=== PATIENT | male | born 1960 | race African-American/Black ===

== ENCOUNTER 2020-08-31 08:56 | Inpatient (IN) | payer OTHER, SELFPAY ==
[2020-08-31] MEDS ORDERED: Iopamidol-370 76% 500 ML 1 ML ONE (09:07)
--- NOTE | 2020-08-31 09:14 | RAD ---
EXAM: Chest one view: HISTORY: Patient found down at work, CPR COMPARISON: 02/13/2016 FINDINGS: Endotracheal tube and NG tube are in place although the distal tip of the NG tube is not included on the study. Heart size: Within normal limits. Lungs: Clear of acute process. No evidence for confluent pneumonia, pleural effusion, acute edema, or pneumothorax, or other signifi cant acute process. IMPRESSION: No significant acute intrathoracic disease.
[2020-08-31 09:16] LABS: #Basophils 0.1 thou/uL (0.0-0.2); #Eosinphils 0.1 thou/uL (0.0-0.7); #Lymphocytes 2.3 thou/uL (1.20-3.40); #Monocytes 0.5 thou/uL (0.11-0.59); %Basophils 1.2 % (0.0-1.0); %Eosinophils 2.3 % (0.0-10.0); %Lymphocytes 38.7 % (21.0-51.0); %Neutrophils 49.9 % (42.0-75.0); Hemoglobin 14.1 g/dL (14.0-18.0); Mean Corpuscular HGB CONC 32.8 g/dL (32.0-36.0); Mean Corpuscular Volume 97.8 fL (78.0-98.0); Mean Platelet Volume 7.4 fL (7.4-10.4); Platelet Count 278 thou/uL (130-400); RBC Distribution Width 11.9 % (11.5-14.5); Red Blood Cell (RBC) Count 4.39 mill/uL (4.70-6.10)
--- NOTE | 2020-08-31 09:28 | CT ---
CT BRAIN NONCONTRAST: DATE: 08/31/2020 9:14 AM HISTORY: 60-year-old male status post syncope and seizure At 9:22 AM 08/31/2020 Dr. Campa reported the findings by telephone to Dr. Ramey. COMPARISON: none FINDINGS: There is a moderate to large amount of subarachnoid hemorrhage in the right sylvian fissure, right fr ontal, temporal, and parietal sulci, interpeduncular cistern, right ambient cistern, right quadrigeminal cistern, prepontine cistern, and suprasellar cistern, right greater than left. No obstructive hydrocephalus, mass effect, midline shift, or acute calvarial fracture. 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
[2020-08-31] MEDS ORDERED: niCARdipine 20MG In NaCl 20 MG/200 ML BAG ONE (09:29)
[2020-08-31 09:39] LABS: PTT 25.3 sec (22.9-36.1); Prothrombin Time 13.3 sec (12.0-14.7)
[2020-08-31 09:41] LABS: Actual Bicarbonate (HCO3a) 26.1 mEq/L (22-28); Analyzer IN Cardio ER; Base Excess (BEa) -0.3 mEq/L (-2.0 to +3.0); CO2 Tension 49.3 mmHg (35.0-45.0); Calcium, Ionized (arterial) 1.18 mmol/L (1.12-1.30); Carboxyhemoglobin (COHb) 3.2 gm% (0.0-3.0); Hemoglobin (Hb) 14.4 g/dL (14.0-18.0); O2 Tension (PaO2), arterial 192.6 mmHg (80.0-100.0); Potassium - ABG Lab 3.36 mmol/L (3.70-5.30); pH, Arterial 7.34 (7.35-7.45)
--- NOTE | 2020-08-31 09:46 | CT ---
CT ANGIOGRAM OF BRAIN WITH AND WITHOUT CONTRAST: DATE: 08/31/2020 9:20 AM HISTORY: 60-year-old male with subarachnoid hemorrhage. Dr. Campa discussed the findings by telephone with Dr. Ant Sabillon at 9:33 AM 08/31/2020. Dr. Campa discussed the findings by telephone with Dr. Ramey at 9:37 AM 08/31/2020. COMPARISON: None TECHNIQUE: Noncontrast brain CT performed. Iodinated IV contrast injected. Bolus chasing technique scan performed through the head. Coronal and sagittal 3-D MIP reconstructions. FINDINGS: At the bifurcation of the right middle cerebral artery, there is a 3 x 1 x 1 mm aneurysm pointing med ially. At the right supraclinoid carotid terminus posterior surface, there is a tiny 1 x 1 x 2 mm aneurysm p ointing medially, posteriorly, and slightly inferiorly. There is no high-grade stenosis or occlusion of major arteries of [place]. IMPRESSION: 1) tiny 3 x 1 x 1 mm aneurysm at right middle cerebral artery bifurcation. This is probably the one t hat has ruptured. 2) tiny 2 x 1 x 1 mm aneurysm at right carotid terminus.
[2020-08-31] MEDS ORDERED: levETIRAcetam In NaCl (Iso-Os) 200 ML ONE (09:48)
[2020-08-31 09:52] LABS: Puncture Site L.R.
[2020-08-31 09:53] LABS: ALV-art Gradient 102.275 mmHg (0-20)
[2020-08-31] MEDS ORDERED: PROPOFOL 20 ML ONE (09:55)
[2020-08-31] MEDS ORDERED: Ondansetron PF 4 MG/2 ML Vial IVP PRN (09:57)
[2020-08-31] MEDS ORDERED: Docusate 100 MG CAP PO PRN (09:57)
[2020-08-31] MEDS ORDERED: Propofol 1,000 MG/100 ML VIAL IV ONE (09:59)
[2020-08-31 10:34] LABS: ALT (SGPT) 12 U/L (8-55); AST (SGOT) 19 U/L (5-34); Acetaminophen Less than 6.0 mcg/mL (10.0-30.0); Albumin 4.1 g/dL (3.5-5.0); Alcohol Less than 10 mg/dL (Less than 10); Alkaline Phosphatase 52 U/L (40-110); Anion Gap 16 mmol/L (10-20); BUN (Urea Nitrogen) 10 mg/dL (8.4-25.7); Bilirubin, Total 0.6 mg/dL (0.2-1.2); CK (CPK) 139 U/L (30-200); Calc. Creatinine Clearance 0 mL/min (70-130); Calcium 8.9 mg/dL (7.8-10.44); Carbon Dioxide 23 mmol/L (22-29); Chloride 103 mmol/L (98-107); Estimated GFR-MDRD 67; Globulin 3.1 g/dL (2.4-3.5); Glucose 190 mg/dL (70-105); Magnesium 1.8 mg/dL (1.6-2.6); Potassium 3.3 mmol/L (3.5-5.1); Protein, Total 7.2 g/dL (6.0-8.3); Salicylate Less than 8.0 mg/dL (15.0-30.0); Sodium 139 mmol/L (136-145)
--- NOTE | 2020-08-31 10:34 | HP ---
HISTORY OF PRESENT ILLNESS: Mr. Berg is a 60-year-old man, presenting to [facility] via EMS transport from work, where he was found to have a syncopal event with reportedly agonal respirations. EMS arrived after coal workers called reporting the patient was unconscious and down. On the scene, the patient had systolic blood pressures in the 200s to two teens. He received rocuronium and ketamine in the field for rapid sequence intubation and then was brought here. Upon presentation to the Emergency Department, CT scan of the brain revealed diffuse subarachnoid hemorrhage with some concentration of the right frontotemporal region likely indicating aneurysmal rupture, perhaps the middle cerebral artery territory. CTA reveals two aneurysms, both relatively small 1 mm in size, one of the right MCA bifurcation. The other at the right ICA terminus. Radiologist's note the ruptured aneurysm is within the right MCA aneurysm. PAST MEDICAL HISTORY: The patient's past medical history includes hypertension. MEDICATIONS: Losartan/hydrochlorothiazide. ALLERGIES: NO KNOWN DRUG ALLERGIES. PAST SURGICAL HISTORY: Surgeries undisclosed. Family at bedside is unsure. The patient does not take any blood thinning medications to their knowledge. PHYSICAL EXAMINATION: GENERAL: Examination at bedside in the ER, again the patient is likely still under the effects of paralytics even to the rapid sequence intubation. HEENT: Pupils, left pupil is roughly 5 mm, right pupil roughly 4 mm, both are briskly reactive. There are no brainstem reflexes upon testing. No spontaneous movement. No reaction to painful stimuli. GCS graded at 3T. ASSESSMENT: Acute subarachnoid hemorrhage. PLAN: At this time, we will admit the patient to the ICU. He will receive high-flow normal saline 125 an hour. Concepcion is in place. We will keep head of bed elevated at 30 degrees, q.1 hour neuro checks. We will consult Pulmonology. Had an extensive discussion with family in the ER regarding likely poor prognosis a little more than the next 6 to 12 hours after repeat scan and continue monitoring. No additional intervention is planned. Job ID: [id number]
[2020-08-31 10:41] LABS: Bacteria/HPF None Seen HPF (None Seen); Bilirubin Negative (Negative); Blood, Urine 2+ (Negative); Clarity Clear (Clear); Glucose, Urine (Dipstick) 100 mg/dL (Negative); Ketone, Urine Negative (Negative); Leukocyte Negative Leu/uL (Negative); Nitrite Negative (Negative); Protein, Urine (Dipstick) 300 mg/dL (Neg-Trace); RBC/HPF 21-50 HPF (0-3); Specific Gravity, Urine 1.022 (1.002-1.036); Squamous Epithelial 0-3 HPF (0-3); Urobilinogen Normal mg/dL (Less than 2)
[2020-08-31 10:43] LABS: Amphetamine Not Detected (NotDetected); Barbiturates Screen Not Detected (NotDetected); Benzodiazepine Screen Not Detected (NotDetected); Cocaine Metabolite Screen Not Detected (NotDetected); Medtox Control Line Valid? VALID (VALID); Medtox Reader # READER 4; Methadone Not Detected (NotDetected); Methamphetamine Not Detected (NotDetected); Opiate Screen Not Detected (NotDetected); Oxycodone Screen Not Detected (NotDetected); Phencyclidine (PCP) Not Detected (NotDetected); THC/Cannabinoid Screen Not Detected (NotDetected); Tricyclic Screen Not Detected (NotDetected)
[2020-08-31] MEDS ORDERED: Fentanyl 100 MCG/2 ML VIAL ONE (10:43)
[2020-08-31 10:49] LABS: Sperm/HPF 1+ HPF (None Seen)
[2020-08-31 11:21] LABS: SARS-CoV-2 NAA Rapid Test Not Detected (NotDetected)
[2020-08-31] MEDS ORDERED: Amiodarone 150 MG/3 ML VIAL ONE (12:21)
[2020-08-31] MEDS: Sodium Chloride 0.9% 1,000 ML IV SCH ×2 (12:36→17:16)
[2020-08-31 12:39] LABS: Lactic Acid 3.1 mmol/L (0.5-2.2)
[2020-08-31 12:46] LABS: Troponin I 0.127 ng/mL (< 0.028)
[2020-08-31] MEDS: niMODipine 30 MG CAP PO SCH ×3 (13:05→21:04)
[2020-08-31] MEDS ORDERED: fentaNYL Citrate/PF 2,000 MCG in Sodium Chloride 0.9% 60 ML IV SCH (13:15)
[2020-08-31] MEDS ORDERED: Propofol BOLUS 1,000 MG/100 ML VIAL IV PRN (13:15)
[2020-08-31] MEDS ORDERED: Fentanyl BOLUS 250 ML IVPB PRN (13:15)
[2020-08-31] MEDS: Propofol 1,000 MG/100 ML VIAL IV PRN ×2 (14:07→17:17)
--- NOTE | 2020-08-31 14:55 | CT ---
CT BRAIN NONCONTRAST: DATE: 08/31/2020 2:21 PM HISTORY: 60-year-old male with subarachnoid hemorrhage. Follow-up. COMPARISON: 08/31/2020 9:14 AM. FINDINGS: Extensive acute subarachnoid hemorrhage is again demonstrated, mostly in the right side. The third ve ntricle is minimally dilated. No midline shift. There has been no major interval change. IMPRESSION: No interval change in the subarachnoid hemorrhage.
[2020-08-31 15:47] LABS: Troponin I 0.149 ng/mL (< 0.028)
[2020-08-31] MEDS ORDERED: Electrolyte Replacement Protoc 1 EACH EACH FS ONE (17:07)
[2020-08-31] MEDS: niCARdipine 25 MG in Sodium Chloride 0.9% 250 ML 240 ML IVPB SCH ×2 (17:17→22:52)
[2020-08-31] MEDS ORDERED: Electrolyte Replacement Protocol FS PRN (17:30)
--- NOTE | 2020-08-31 18:29 | CON ---
DATE OF CONSULTATION: HISTORY OF PRESENT ILLNESS: Mr. Berg is a 60-year-old, gentleman, we are not getting any information from any family members. We tried to contact the number I was called from the ER by the ER physician. The patient was found down at home. He was intubated in the field, brought to the hospital over here, where CT head shows a subarachnoid hemorrhage secondary to an aneurysmal bleed. He is admitted under Neurosurgery, for what I am told at this stage that they are unable to do any surgical intervention. He is vented and sedated. I am told by the nurses that he is on Diprivan. He is moving his right side mainly and appears appropriate. PAST MEDICAL HISTORY: Hypertension. PAST SURGICAL HISTORY: Cardiac cath. CHRONIC MEDICATION: Blood pressure medicine, lisinopril. REVIEW OF SYSTEMS: Otherwise negative. PHYSICAL EXAMINATION: VITAL SIGNS: Pulse 100, blood pressure 108/49, saturations are 100%, respirations 22. CHEST: Decreased breath sounds. No wheezing. CARDIAC: Normal S1 and S2. No gallops. ABDOMEN: No mass. LABORATORY DATA: His lab was unremarkable. ASSESSMENT AND PLAN: 1. Subarachnoid hemorrhage secondary to aneurysmal bleed. 2. History of hypertension. He is on Cardene and nimodipine. 3. Pulmonary is going to follow, probably restart home medicine in the next 24 to 48 hours. 4. We will follow along with Neurosurgery. This is a consultation note 70 minutes, 50% direct patient care. Job ID: [id number]
--- NOTE | 2020-08-31 21:05 | PRG ---
DATE OF SERVICE: 08/31/2020 Mr. Berg is a 60-year-old gentleman who presented to the ER today from work, where he had a syncopal event and agonal respirations. EMS responded and rapid sequence intubated. Mr. Berg was brought to the ER, where he underwent a CT of the head, which revealed the presence of diffuse subarachnoid hemorrhage, eccentric to the right more so than the left. Subsequent to that, he had a CT angiogram performed, which revealed what may be a very small 1 mm aneurysm near the right MCA bifurcation. The plan is admission with subarachnoid hemorrhage protocol. He will undergo conventional angiography tomorrow morning to further evaluate the vasculature. Job ID: [id number]
[2020-08-31] MEDS: Morphine 2 MG/ML VIAL SLOW IVP PRN (22:52)
[2020-08-31] MEDS: Lorazepam 2 MG/ML VIAL SLOW IVP PRN (23:28)
[2020-09-01] MEDS: niMODipine 30 MG CAP PO SCH ×6 (02:00→20:38)
[2020-09-01] MEDS: niCARdipine 25 MG in Sodium Chloride 0.9% 250 ML 240 ML IVPB SCH ×7 (02:01→23:25)
[2020-09-01] MEDS: Propofol 1,000 MG/100 ML VIAL IV PRN ×3 (02:01→23:49)
[2020-09-01 03:35] LABS: #Lymphocytes 2.2 thou/uL (1.20-3.40); #Monocytes 1.6 thou/uL (0.11-0.59); #Neutrophils 11.7 thou/uL (1.40-6.50); %Basophils 0.2 % (0.0-1.0); %Eosinophils 0.3 % (0.0-10.0); %Lymphocytes 13.9 % (21.0-51.0); %Neutrophils 75.6 % (42.0-75.0); Hemoglobin 12.6 g/dL (14.0-18.0); Mean Corpuscular HGB CONC 32.2 g/dL (32.0-36.0); Mean Corpuscular Hemoglobin 31.6 pg (27.0-31.0); Mean Corpuscular Volume 98.2 fL (78.0-98.0); Mean Platelet Volume 7.2 fL (7.4-10.4); Platelet Count 247 thou/uL (130-400); RBC Distribution Width 12.3 % (11.5-14.5); Red Blood Cell (RBC) Count 3.98 mill/uL (4.70-6.10); White Blood Cell (WBC) Count 15.5 thou/uL (4.8-10.8)
[2020-09-01 03:40] LABS: Anion Gap 13 mmol/L (10-20); BUN (Urea Nitrogen) 13 mg/dL (8.4-25.7); Calc. Creatinine Clearance 71 mL/min (70-130); Calcium 8.7 mg/dL (7.8-10.44); Carbon Dioxide 20 mmol/L (22-29); Chloride 109 mmol/L (98-107); Estimated GFR-MDRD 61; Glucose 124 mg/dL (70-105); Potassium 3.8 mmol/L (3.5-5.1); Sodium 138 mmol/L (136-145)
[2020-09-01] MEDS: Sodium Chloride 0.9% 1,000 ML IV SCH ×4 (04:57→18:53)
[2020-09-01] MEDS ORDERED: Magnesium 2 GM/50 ML 2 GM in Premix Bag 1 BAG IVPB SCH (06:30)
[2020-09-01] MEDS ORDERED: Heparin 10,000 UNITS/ 10 ML VIAL ONE (07:07)
[2020-09-01 07:51] LABS: Actual Bicarbonate (HCO3a) 20.1 mEq/L (22-28); Base Excess (BEa) -2.8 mEq/L (-2.0 to +3.0); Carboxyhemoglobin (COHb) 0.4 gm% (0.0-3.0); Hemoglobin (Hb) 12.9 g/dL (14.0-18.0); O2 Tension (PaO2), arterial 110.3 mmHg (80.0-100.0); Potassium - ABG Lab 3.82 mmol/L (3.70-5.30); pH, Arterial 7.45 (7.35-7.45)
[2020-09-01 07:52] LABS: Puncture Site RRA
[2020-09-01] MEDS ORDERED: Lidocaine 1% (PF) 30 ML VIAL ONE (08:01)
--- NOTE | 2020-09-01 08:56 | PRG ---
DATE OF SERVICE: 09/01/2020 Mr. Berg is on the second day of his hospital admission for spontaneous subarachnoid hemorrhage likely aneurysmal in nature. Yesterday, his exam was quite poor, but this morning, when I walk into the room, his eyes are open. He is looking around the room. He follows commands briskly with the right upper extremity somewhat sluggishly with the right lower extremity. Really, he has no significant movement of the left upper nor left lower extremity. He has been breathing on his own to some extent. Overall, I am very encouraged by his exam presentation this morning. Dr. Sabillon plans to take him for angiogram today. Reviewing his lab work, his creatinine bumped from 1.33 up to 1.44. His chemistries otherwise look excellent, which is improving from yesterday. His potassium yesterday was 3.3 and it is currently 3.8 today. Of note, however, his urinary output has continued to decline hour to an hour, where now he is in the 20 to 30 mL out per hour, even though his input normal saline continues to be at 125, my concern is perhaps he is developing some type of dysfunction leading to retention or lack of urine production. We will lower his fluids to 100. Check UA and recheck labs this afternoon. Otherwise, I am quite encouraged again by our interactions today and we will see how he does after angiography. Job ID: [id number]
[2020-09-01] MEDS ORDERED: FLU VACC QS2020-21(6MOS UP)/PF 60 MCG/0.5 ML SYRINGE IM ONE (09:00)
--- NOTE | 2020-09-01 09:09 | PRG ---
DATE OF SERVICE: SUBJECTIVE: This morning, off sedation, is moving only the right side. OBJECTIVE: HEENT: Pupils are equal. VITAL SIGNS: Temperature is normal. Pulse 90, blood pressure 124/60, sats 100%. GENERAL: He has been sedated. He is going for cerebral angiogram. CHEST: No wheezing. No crackles. CARDIAC: Normal S1 and S2. No gallop. ABDOMEN: Soft. LABORATORY DATA: White count 02714, hemoglobin and hematocrit unremarkable. Chemistry profile pertinent for creatinine 1.44. PO2 of 110, pCO2 of 30%, 40% FiO2, rate of 22. IMPRESSION: 1. Respiratory failure secondary to subarachnoid hemorrhage secondary to aneurysm. 2. History of hypertension with renal failure. PLAN: Continue vent support. Wean when stable. Discussed with Neurosurgery additional input. We will follow. One-half hour of critical time. Job ID: [id number]
--- NOTE | 2020-09-01 10:44 | PRG ---
DATE OF SERVICE: SUBJECTIVE: Mr. Berg continues to recover from subarachnoid hemorrhage. He has been a little more responsive over the last 12 hours. He intermittently follows commands on the right side. He does remain intubated and remains in critical condition. He was brought down to the labor relations manager today for cerebral angiography. The angiogram failed to show any known source for subarachnoid hemorrhage. Specifically, there is no evidence for aneurysm or other vascular malformation. At this point in time, my working diagnosis is benign perimesencephalic subarachnoid hemorrhage. He will remain in the ICU as he is intubated. We will continue to be vigilant with respect to hydrocephalus. Currently, there is no known signs of vasospasm on his angiogram, but he remains at risk for it given the degree of blood present. I have updated his family. Job ID: [id number]
[2020-09-01] MEDS ORDERED: Iopamidol 370 76% 100 ML VIAL ONE (13:25)
[2020-09-01] MEDS ORDERED: Iopamidol 370 76% 50 ML VIAL FS ONE (13:25)
[2020-09-01] MEDS ORDERED: PROPOFOL 200 MG/20 ML VIAL ONE (14:28)
[2020-09-01] MEDS: Lorazepam 2 MG/ML VIAL SLOW IVP PRN ×2 (16:18→22:10)
[2020-09-01 16:49] LABS: Anion Gap 12 mmol/L (10-20); BUN (Urea Nitrogen) 12 mg/dL (8.4-25.7); Calc. Creatinine Clearance 107 mL/min (70-130); Calcium 7.7 mg/dL (7.8-10.44); Carbon Dioxide 18 mmol/L (22-29); Chloride 113 mmol/L (98-107); Estimated GFR-MDRD Greater than 90; Glucose 106 mg/dL (70-105); Potassium 3.4 mmol/L (3.5-5.1); Sodium 140 mmol/L (136-145)
[2020-09-01 16:50] LABS: Bacteria/HPF None Seen HPF (None Seen); Bilirubin Negative (Negative); Blood, Urine 1+ (Negative); Clarity Clear (Clear); Glucose, Urine (Dipstick) Normal (Negative); Ketone, Urine Negative (Negative); Leukocyte 75 Leu/uL (Negative); Nitrite Negative (Negative); Protein, Urine (Dipstick) 10 mg/dL (Neg-Trace); Specific Gravity, Urine 1.041 (1.002-1.036); Squamous Epithelial 0-3 HPF (0-3); Urobilinogen Normal mg/dL (Less than 2)
[2020-09-01] MEDS: Morphine 2 MG/ML VIAL SLOW IVP PRN (23:46)
[2020-09-02] MEDS: niMODipine 30 MG CAP PO SCH ×6 (00:57→20:32)
[2020-09-02] MEDS: Lorazepam 2 MG/ML VIAL SLOW IVP PRN ×2 (00:57→21:37)
[2020-09-02] MEDS: niCARdipine 50 MG in Sodium Chloride 0.9% 250 ML 230 ML IVPB SCH ×5 (00:58→19:31)
[2020-09-02] MEDS: Sodium Chloride 0.9% 1,000 ML IV SCH ×3 (04:58→16:41)
[2020-09-02] MEDS: Propofol 1,000 MG/100 ML VIAL IV PRN ×2 (05:34→15:38)
[2020-09-02] MEDS ORDERED: GASTROGRAFIN 30 ML BOT ONE (09:01)
--- NOTE | 2020-09-02 09:01 | PRG ---
DATE OF SERVICE: 09/02/2020 SUBJECTIVE: Rober Berg is a 60-year-old gentleman, remains in the ICU, intubated on the vent. His cerebral angiogram did not show any vasospasm or aneurysm. He is slightly responsive on the right side. He is going to withhold his sedation this morning. OBJECTIVE: VITAL SIGNS: Temperature is 99, blood pressure 140/71, pulse 96, respiratory rate 18. CHEST: Bilateral rhonchi. CARDIAC: Normal S1, S2. No gallops. ABDOMEN: No masses. LABORATORY DATA: Sodium is 140. Last white count was 15,000. ASSESSMENT: 1. Subarachnoid hemorrhage. No evidence of aneurysm. 2. History of hypertension. PLAN: Lab, x-ray have been ordered. We will start nutrition, PT. Hopefully, we can try and wean and extubate him in the next several days. One-half hour of critical care time. Job ID: [id number]
--- NOTE | 2020-09-02 10:08 | PRG ---
DATE OF SERVICE: 09/02/2020 Mr. Berg is now hospital day #2 and one day status post cerebral angiography for subarachnoid hemorrhage. He remains in the ICU and remains intubated. Sedation holidays reveal intermittent purposeful movements and occasional following of commands on the right side. I saw Dr. Meyers this morning, who plans to withhold his sedation and work toward extubation if possible. In the meanwhile, we will continue to treat him for a nonaneurysmal subarachnoid hemorrhage. He remains in a critical condition. At this time, my concern for vasospasm and hydrocephalus are low based on his most recent set of images. I will continue to update the family. Job ID: [id number]
[2020-09-02] MEDS ORDERED: Potassium Chloride 20 MEQ TAB PO SCH (10:45)
[2020-09-02] MEDS: Lisinopril 10 MG TAB PO SCH (11:09)
[2020-09-02] MEDS: Amlodipine 5 MG TAB PO SCH (11:09)
[2020-09-02] MEDS: Scopolamine 1.5 mg/72 hour Patch TOP SCH (11:25)
[2020-09-02] MEDS ORDERED: Sodium Chloride 0.9% (PF) 10 ML VIAL FS PRN (11:30)
[2020-09-02] MEDS ORDERED: Sodium Chloride 0.9% 1,000 ML IV SCH (18:15)
--- NOTE | 2020-09-02 19:53 | RAD ---
Cam: 1 view abdomen HISTORY: Abdominal distention COMPARISON: None FINDINGS: Multiple distended loops of small bowel and colon. No evidence of pneumoperitoneum on supin e projection. Nasogastric tube terminates at the GE junction. Advancement of the nasogastric tube is recommended. N o suspicious densities in the abdomen or pelvis IMPRESSION: Distended air-filled loops of bowel. Nasogastric tube should be advanced. Results study d iscussed with patient's nurse, [place] 09/02/2020 7:47 PM Code CR
--- NOTE | 2020-09-02 20:29 | RAD ---
Exam: 1 view abdomen HISTORY: Confirm NG tube placement FINDINGS: Gastrografin is administered and appears to opacify the gastric mucosa. Persistent dilated loops of small bowel are noted. IMPRESSION: Opacification of the stomach with Gastrografin. Transcribed Date/Time: 09/02/2020 8:37 PM
--- NOTE | 2020-09-02 20:30 | RAD ---
Exam: 1 view abdomen Comparison 09/02/2020 at 7:34 PM HISTORY: Advancement of OG tube FINDINGS: OG tube now appears to be in the epigastric region. Sidehole is beyond the diaphragm. Orien tation is somewhat vertical. OG tube is presumed to be in the stomach. Small amount of Gastrografin can be measured confirm position IMPRESSION: As above Transcribed Date/Time: 09/02/2020 8:41 PM
[2020-09-02] MEDS: Pantoprazole 40 MG VIAL IVP SCH (20:32)
[2020-09-03] MEDS: niCARdipine 50 MG in Sodium Chloride 0.9% 250 ML 230 ML IVPB SCH (00:16)
[2020-09-03] MEDS: niMODipine 30 MG CAP PO SCH ×6 (00:16→20:13)
[2020-09-03] MEDS: Propofol 1,000 MG/100 ML VIAL IV PRN ×3 (00:16→18:27)
[2020-09-03 07:21] LABS: Actual Bicarbonate (HCO3a) 20.3 mEq/L (22-28); CO2 Tension 30.8 mmHg (35.0-45.0); Calcium, Ionized (arterial) 1.25 mmol/L (1.12-1.30); Carboxyhemoglobin (COHb) 0.1 gm% (0.0-3.0); Hemoglobin (Hb) 11.8 g/dL (14.0-18.0); O2 Tension (PaO2), arterial 83.1 mmHg (80.0-100.0); Potassium - ABG Lab 3.87 mmol/L (3.70-5.30); pH, Arterial 7.44 (7.35-7.45)
[2020-09-03 07:23] LABS: Puncture Site RRA
--- NOTE | 2020-09-03 07:59 | RAD ---
CHEST 1 VIEW: INDICATION: Intubation. COMPARISON: Prior exam dated 08/31/2020. FINDINGS: ET tube and gastric catheter are present. Tubes project in the expected position. There is new hazy opacity involving the mid to lower right lung which may be related to a small layered pleural effusi on. Heart size is normal. Pulmonary vasculature is within normal limits. No pneumothorax is eviden t. IMPRESSION: 1. Hazy opacity involving the mid to right lower lobe may reflect mild layered pleural effusion. No airam consolidation or pneumothorax evident. 2. Tubes and lines are stable. 3. Continued followup is recommended. POS: BH
[2020-09-03] MEDS: Amlodipine 5 MG TAB PO SCH (08:07)
[2020-09-03] MEDS: Lisinopril 10 MG TAB PO SCH (08:07)
[2020-09-03 08:40] LABS: #Eosinphils 0.1 thou/uL (0.0-0.7); #Lymphocytes 1.6 thou/uL (1.20-3.40); #Monocytes 1.6 thou/uL (0.11-0.59); #Neutrophils 11.5 thou/uL (1.40-6.50); %Basophils 0.3 % (0.0-1.0); %Eosinophils 0.6 % (0.0-10.0); %Lymphocytes 10.5 % (21.0-51.0); %Monocytes 10.8 % (0.0-10.0); %Neutrophils 77.8 % (42.0-75.0); Hemoglobin 11.5 g/dL (14.0-18.0); Mean Corpuscular HGB CONC 32.6 g/dL (32.0-36.0); Mean Corpuscular Hemoglobin 32.8 pg (27.0-31.0); Mean Platelet Volume 8.4 fL (7.4-10.4); Platelet Count 185 thou/uL (130-400); RBC Distribution Width 12.5 % (11.5-14.5); Red Blood Cell (RBC) Count 3.49 mill/uL (4.70-6.10); White Blood Cell (WBC) Count 14.8 thou/uL (4.8-10.8)
[2020-09-03 08:57] LABS: Anion Gap 15 mmol/L (10-20); BUN (Urea Nitrogen) 27 mg/dL (8.4-25.7); Calc. Creatinine Clearance 84 mL/min (70-130); Calcium 8.7 mg/dL (7.8-10.44); Carbon Dioxide 17 mmol/L (22-29); Chloride 112 mmol/L (98-107); Estimated GFR-MDRD 69; Glucose 118 mg/dL (70-105); Potassium 4.1 mmol/L (3.5-5.1); Sodium 140 mmol/L (136-145)
--- NOTE | 2020-09-03 09:08 | PRG ---
DATE OF SERVICE: 09/03/2020 SUBJECTIVE: Rober Berg this morning was intubated in the vent, lightly sedated with Diprivan. OBJECTIVE: VITAL SIGNS: Temperature is 99.2, his pulse 104, blood pressure 140/71, respiratory rate 18. CHEST: No wheezing. No crackles. CARDIAC: Normal S1 and S2. No gallops. ABDOMEN: Soft. He appears to be slightly jaundiced. LABORATORY DATA: His pO2 is 83, pCO2 of 30% for a rate of 10, 40%. X-ray is clear. KUB is otherwise unremarkable. ASSESSMENT: 1. Subarachnoid hemorrhage, not secondary to an aneurysm. 2. Hypertension. 3. Jaundice. 4. Respiratory failure. PLAN: Slow weaning. Continue nutrition, PT. Blood pressure medication as outlined. We will follow. One-half hour of critical care time. Job ID: [id number]
[2020-09-03 11:02] LABS: ALT (SGPT) 7 U/L (8-55); AST (SGOT) 14 U/L (5-34); Albumin 3.4 g/dL (3.5-5.0); Alkaline Phosphatase 44 U/L (40-110); Bilirubin, Direct 0.4 mg/dL (0.1-0.3); Bilirubin, Total 0.9 mg/dL (0.2-1.2); Protein, Total 6.4 g/dL (6.0-8.3)
--- NOTE | 2020-09-03 11:09 | PRG ---
DATE OF SERVICE: 09/03/2020 Mr. Berg remains in the ICU recovering from subarachnoid hemorrhage. He also remains intubated. Off sedation, he opens his eyes. He does follow commands on the right, but is densely hemiparetic on the left. Our Pulmonary Care colleagues are working to wean toward extubation. We will continue to update the family. Our role at this point is one of supportive care. We will repeat a CT angiogram on Monday to further rule out source for hemorrhage. At this time, I have a minimal to no concerns for hydrocephalus given his stable if not improving neurologic exam. Job ID: [id number]
--- NOTE | 2020-09-03 11:29 | PDOC.FMACP ---
Advance Care Planning - Problem (1) Subarachnoid hemorrhage Status: Acute Code(s): I60.9 - NONTRAUMATIC SUBARACHNOID HEMORRHAGE, UNSPECIFIED (2) Palliative care encounter Status: Acute Code(s): Z51.5 - ENCOUNTER FOR PALLIATIVE CARE (3) Respiratory failure requiring intubation Status: Acute Code(s): J96.90 - RESPIRATORY FAILURE, UNSP, UNSP W HYPOXIA OR HYPERCAPNIA (4) Hypertension Status: Chronic Code(s): I10 - ESSENTIAL (PRIMARY) HYPERTENSION - Note Participants: family, surrogate decision-maker, palliative care Summary: Palliative care introduced Advanced Care Planning. The diagnosis, prognosis and goals of care were discussed. Appropriate forms and documentation to accomplish the goals of care were discussed. All questions were answered. Family has elected to name one of the 5 siblings as MPOA and have added a password to gain information in addition to the pin code. Patients children are hopeful for continued recovery and improvement. Surrogate decision maker is Ernestine. Please refer to Palliative Care notes in note section for specifics. The Palliative Care Team will assist with completion of any outstanding forms as identified. Ernestine Dumont [phone] Surrogate decision maker as designated by her siblings. Password for information is LORD in addition to pin code. Palliative Care will sign off as MPOA identified, if in the future patient is decisional and wishes to complete MPOA and Directive to Physician please re consult our team or if we can assist with Goal of care, complex decision making, family support. Time Spent (mins): 15
--- NOTE | 2020-09-03 12:28 | PRG ---
DATE OF SERVICE: 09/03/2020 Mr. Berg is on the 3rd day of hospital stay following non-aneurysmal subarachnoid hemorrhage. He continues to intermittently follow commands on the right with minimal movement if any on the left. Pupils still are equal and reactive to light. He is still on the ventilator, though Pulmonology is attempting to wean as tolerated. He is mostly overbreathing on his own today. Potassium 4.1, sodium 140. We will continue to need to monitor this and hopefully work to get him off the ventilator as soon as we can as tolerated. We will continue to follow. Job ID: [id number]
[2020-09-03] MEDS: cloNIDine 0.1 MG TAB PO PRN ×2 (13:28→21:07)
--- NOTE | 2020-09-03 13:42 | CON ---
DATE OF CONSULTATION: REASON FOR CONSULTATION: Medical management. HISTORY OF PRESENT ILLNESS: The patient is a 60-year-old male with past medical history of hypertension, who was brought to the hospital after being found unresponsive and intubated in the field. CT scan of the brain in the ER revealed presence of subarachnoid hemorrhage secondary to aneurysmal rupture. The patient underwent conventional angiogram by Neurosurgery, which fails to show any source of active bleeding. At this time, the patient remains on mechanical ventilation. Once sedation is reduced, the patient is able to move his right side, but not the left. He is currently on nicardipine drip to control his blood pressure. REVIEW OF SYSTEMS: Cannot be obtained at this time. PAST MEDICAL HISTORY: Hypertension. PAST SURGICAL HISTORY: Cardiac catheterization showing normal coronary arteries in 2016. SOCIAL HISTORY: Unable to obtain. PHYSICAL EXAMINATION: GENERAL: The patient is currently intubated. He is off sedation and appears to be agitated with a lot of tracheal secretions. HEENT: Head is normocephalic and atraumatic. Extraocular muscles are intact. CHEST: Auscultation revealed normal S1 and S2 with regular rate and rhythm and clear breath sounds. ABDOMEN: Soft, nontender, nondistended. NEUROLOGICAL: Cannot be accurately assessed at this time since the patient is intubated. LABORATORY DATA: Laboratory studies showing evidence of leukocytosis on CBC and slightly elevated creatinine level on BMP. ASSESSMENT: 1. Subarachnoid hemorrhage. 2. Acute respiratory failure with hypoxia. 3. Hypertensive emergency. PLAN: 1. The patient is currently managed in the ICU. 2. Critical Care team assisting with ventilator management. 3. His blood pressure is controlled on nicardipine drip in addition to oral antihypertensive medications of nimodipine, which is used to reduce cerebral vasospasm, his home lisinopril, and clonidine p.r.n. Started systolic blood pressure less than 160. 4. Scopolamine patch ordered for extensive secretions. 5. The patient can be weaned off mechanical ventilation as tolerated and directed by Critical Care team. 6. We will continue to follow up. We will continue to follow the patient for any medical needs. Job ID: [id number]
[2020-09-03] MEDS: Labetalol HCl 100 MG/20 ML VIAL SLOW IVP PRN (15:26)
[2020-09-03] MEDS: Acetaminophen 325 MG TAB PO PRN (16:49)
[2020-09-03] MEDS: Budesonide 0.5 MG/2 ML NEB NEB SCH (19:05)
[2020-09-03] MEDS: Pantoprazole 40 MG VIAL IVP SCH (20:14)
[2020-09-03] MEDS: Lorazepam 2 MG/ML VIAL SLOW IVP PRN (20:33)
[2020-09-04] MEDS: niMODipine 30 MG CAP PO SCH ×6 (01:12→20:51)
[2020-09-04] MEDS: Propofol 1,000 MG/100 ML VIAL IV PRN ×2 (04:08→18:26)
[2020-09-04 04:33] LABS: Anion Gap 12 mmol/L (10-20); BUN (Urea Nitrogen) 30 mg/dL (8.4-25.7); Calc. Creatinine Clearance 91 mL/min (70-130); Calcium 8.9 mg/dL (7.8-10.44); Carbon Dioxide 19 mmol/L (22-29); Chloride 112 mmol/L (98-107); Estimated GFR-MDRD 75; Glucose 104 mg/dL (70-105); Potassium 4.4 mmol/L (3.5-5.1); Sodium 139 mmol/L (136-145)
[2020-09-04 04:47] LABS: #Eosinphils 0.1 thou/uL (0.0-0.7); #Lymphocytes 1.6 thou/uL (1.20-3.40); #Monocytes 1.5 thou/uL (0.11-0.59); #Neutrophils 8.5 thou/uL (1.40-6.50); %Basophils 0.4 % (0.0-1.0); %Eosinophils 1.2 % (0.0-10.0); %Lymphocytes 13.5 % (21.0-51.0); %Monocytes 12.4 % (0.0-10.0); %Neutrophils 72.6 % (42.0-75.0); Hemoglobin 11.4 g/dL (14.0-18.0); Mean Corpuscular HGB CONC 33.4 g/dL (32.0-36.0); Mean Platelet Volume 8.3 fL (7.4-10.4); Platelet Count 202 thou/uL (130-400); RBC Distribution Width 12.3 % (11.5-14.5); Red Blood Cell (RBC) Count 3.46 mill/uL (4.70-6.10); White Blood Cell (WBC) Count 11.8 thou/uL (4.8-10.8)
--- NOTE | 2020-09-04 07:44 | PRG ---
DATE OF SERVICE: 09/04/2020 Mr. Berg is now hospital day 4 for subarachnoid hemorrhage. He had conventional angiography performed, which did not reveal evidence for aneurysm. His neurologic exam has remained relatively stable. Off sedation, he becomes restless, but intermittently follows command on the right side. He does remain intubated and has been difficult to wean secondarily to secretions in part. I will update the family today. Our Pulmonary and Critical Care colleagues will continue vent management and ultimately will need to decide whether he needs to have a trach placed. Also, repeat CT scan as well as CT angiography this next Monday when he is roughly 1 week out from his hemorrhage. Job ID: [id number]
[2020-09-04] MEDS: Lisinopril 10 MG TAB PO SCH (08:14)
[2020-09-04] MEDS: Amlodipine 5 MG TAB PO SCH ×3 (08:14→20:50)
[2020-09-04] MEDS: cloNIDine 0.1 MG TAB PO PRN ×3 (08:14→23:42)
[2020-09-04 08:47] LABS: Actual Bicarbonate (HCO3a) 21.9 mEq/L (22-28); Base Excess (BEa) -1.9 mEq/L (-2.0 to +3.0); CO2 Tension 33.9 mmHg (35.0-45.0); Calcium, Ionized (arterial) 1.22 mmol/L (1.12-1.30); Carboxyhemoglobin (COHb) 0.3 gm% (0.0-3.0); Hemoglobin (Hb) 11.7 g/dL (14.0-18.0); O2 Tension (PaO2), arterial 76.3 mmHg (80.0-100.0); Potassium - ABG Lab 4.44 mmol/L (3.70-5.30); pH, Arterial 7.43 (7.35-7.45)
[2020-09-04 09:00] LABS: ALV-art Gradient 166.525 mmHg (0-20); Puncture Site RRAD
[2020-09-04] MEDS: Budesonide 0.5 MG/2 ML NEB NEB SCH ×2 (09:01→19:14)
--- NOTE | 2020-09-04 09:22 | PRG ---
DATE OF SERVICE: 09/04/2020 SUBJECTIVE: Rober Berg remains in the ICU. He is coughing still a lot. OBJECTIVE: VITAL SIGNS: Pulse 84, blood pressure 160/78 CHEST: Anterior rhonchi. CARDIAC: Normal S1, S2. No gallops. ABDOMEN: No masses. LABORATORY AND DIAGNOSTIC DATA: Unremarkable. His liver function was normal, particularly his bilirubin. His chest x-ray shows otherwise no acute infiltrates. IMPRESSION AND PLAN: Respiratory failure, subarachnoid hemorrhage, hypertension, mild renal failure. It is possible that Zestril could be causing the cough. This may be discontinued cough. Continue neb treatments, supportive care, nutrition, PT. Wean as tolerated. TIME SPENT: One-half hour of critical care time. Job ID: [id number]
--- NOTE | 2020-09-04 09:42 | RAD ---
PORTABLE CHEST: COMPARISON: Prior day's exam. HISTORY: Respiratory distress. Endotracheal and NG tubes are in satisfactory position. The parenchymal lung changes show some impro vement to the hazy opacity over the right lung base. No other significant interval change. IMPRESSION: Slight improvement to some of the right lower lobe parenchymal lung change. POS: JORGE
[2020-09-04] MEDS: cloNIDine 0.2 MG TAB PO SCH ×2 (09:58→20:50)
[2020-09-04] MEDS ORDERED: Dexamethasone 4 MG in Sodium Chloride 0.9% 50 ML IVPB SCH (12:00)
--- NOTE | 2020-09-04 12:26 | PDOC.HOSPP ---
- Subjective Encounter Date: 09/04/20 Encounter Time: 08:35 Subjective: awakens on vent and sedated mildly seen moving right extremities has increased resp secretions - Objective Vital Signs & Weight: Vital Signs (12 hours) Temp Pulse Resp BP Pulse Ox 09/04/20 10:00 18 09/04/20 09:58 85 143/66 H 09/04/20 09:01 85 16 96 09/04/20 08:14 84 168/78 H 09/04/20 08:00 99.7 F H 26 H 96 09/04/20 05:53 19 09/04/20 04:00 99.4 F 22 H 09/04/20 02:00 19 Weight Admit Weight 199 lb Weight 213 lb 6.519 oz Most Recent Monitor Data Heart Rate from ECG 77 NIBP 134/67 NIBP BP-Mean 89 Respiration from ECG 14 SpO2 98 I&O: 09/03/20 09/04/20 09/05/20 06:59 06:59 06:59 Intake Total 2749.8 1269 100 Output Total 765 1132 420 Balance 1984.8 137 -320 Result Diagrams: 09/04/20 03:38 09/04/20 03:38 Additional Labs: Accuchecks 09/04/20 09/03/20 09/03/20 11:30 20:32 18:26 POC Glucose 110 H 90 106 H Hospitalist ROS - Medication Medications: Active Medications Generic Name Dose Route Start Last Admin Trade Name Freq PRN Reason Stop Dose Admin Acetaminophen 650 mg 09/03/20 15:36 09/03/20 16:49 Acetaminophen 325 Mg Tab PO 650 mg Q6H PRN Administration Fever > 101 Albuterol/Ipratropium 3 ml 09/03/20 18:30 09/04/20 09:01 Ipratropium/Albuterol Sulfate 3 Ml Neb NEB 3 ml BID-RT ALEXANDR Administration Amlodipine Besylate 5 mg 09/04/20 09:00 09/04/20 09:58 Amlodipine 5 Mg Tab PO 5 mg BID ALEXANDR Administration Budesonide 0.5 mg 09/03/20 18:30 09/04/20 09:01 Budesonide 0.5 Mg/2 Ml Neb NEB 0.5 mg BID-RT ALEXANDR Administration Clonidine 0.1 mg 09/02/20 15:39 09/04/20 08:14 Clonidine 0.1 Mg Tab PO 0.1 mg Q4H PRN Administration SBP Greater Than 150 Clonidine 0.2 mg 09/04/20 09:00 09/04/20 09:58 Clonidine 0.2 Mg Tab PO 0.2 mg BID ALEXANDR Administration Nicardipine HCl 50 mg/ Sodium 250 mls @ 0 mls/hr 09/02/20 00:15 09/03/20 00:16 Chloride IVPB 250 mls INF ALEXANDR Administration Protocol Titrate Labetalol HCl 20 mg 09/02/20 15:38 09/03/20 15:26 Labetalol Hcl 100 Mg/20 Ml Vial SLOW IVP 20 mg Q4H PRN Administration SBP>150 Lorazepam 2 mg 08/31/20 13:15 09/03/20 20:33 Lorazepam 2 Mg/Ml Vial SLOW IVP 09/30/20 13:15 2 mg Q1H PRN Administration Breakthrough agitation Morphine Sulfate 2 mg 08/31/20 13:15 09/01/20 23:46 Morphine 2 Mg/Ml Vial SLOW IVP 09/30/20 13:15 2 mg Q1H PRN Administration Breakthrough Pain/Agitation Nimodipine 60 mg 08/31/20 13:00 09/04/20 08:14 Nimodipine 30 Mg Cap PO 60 mg Q4HR ALEXANDR Administration Pantoprazole Sodium 40 mg 09/02/20 21:00 09/03/20 20:14 Pantoprazole 40 Mg Vial IVP 40 mg 2100 ALEXANDR Administration Propofol 1,000 mg 08/31/20 13:15 09/04/20 04:08 Propofol 1,000 Mg/100 Ml Vial IV 09/30/20 13:15 1,000 mg INF PRN Administration TO ACHIEVE GOAL RASS Protocol Scopolamine 1.5 mg 09/02/20 11:15 09/02/20 11:25 Scopolamine 1.5 Mg/72 Hour Patch TOP 1.5 mg Q3D ALEXANDR Administration - Exam General Appearance: ill appearing Eye: anicteric sclera ENT: no oropharyngeal lesions, moist mucosa Neck: supple, no JVD Heart: RRR, no murmur Respiratory: no wheezes, no rales, rhonchi Gastrointestinal: soft, non-tender, non-distended, normal bowel sounds Extremities: no cyanosis, no edema Neurological: hemiplegia Hosp A/P (1) Subarachnoid hemorrhage Code(s): I60.9 - NONTRAUMATIC SUBARACHNOID HEMORRHAGE, UNSPECIFIED Status: Acute (2) Acute respiratory failure with hypoxia Code(s): J96.01 - ACUTE RESPIRATORY FAILURE WITH HYPOXIA Status: Acute (3) Acute CVA (cerebrovascular accident) Code(s): I63.9 - CEREBRAL INFARCTION, UNSPECIFIED Status: Acute (4) CRYS (acute kidney injury) Code(s): N17.9 - ACUTE KIDNEY FAILURE, UNSPECIFIED Status: Acute (5) Metabolic acidosis Code(s): E87.2 - ACIDOSIS Status: Acute (6) Hypertension Code(s): I10 - ESSENTIAL (PRIMARY) HYPERTENSION Status: Chronic Qualifiers: Hypertension type: essential hypertension Qualified Code(s): I10 - Essential (primary) hypertension - Plan is on nimodipine6 60mg q4h, norvasc 5mg bid, clonidine 0.1mg bid, protonix, nebs has left hemiplegia weaning per pulm advice will obtain echo for lv function hemo/neurostable CTA and kati angio of brain did not reveal aneurysm or rupture
[2020-09-04] MEDS: Dexamethasone 4 mg/ml Vial SLOW IVP SCH ×3 (13:12→23:42)
[2020-09-04] MEDS: Acetaminophen 325 MG TAB PO PRN (13:34)
[2020-09-04] MEDS: Pantoprazole 40 MG VIAL IVP SCH (20:51)
[2020-09-04] MEDS: Labetalol HCl 100 MG/20 ML VIAL SLOW IVP PRN (21:41)
[2020-09-05] MEDS: Propofol 1,000 MG/100 ML VIAL IV PRN (00:36)
[2020-09-05] MEDS: niMODipine 30 MG CAP PO SCH ×6 (01:03→20:15)
[2020-09-05] MEDS: cloNIDine 0.1 MG TAB PO PRN (03:42)
[2020-09-05 03:55] LABS: Anion Gap 15 mmol/L (10-20); BUN (Urea Nitrogen) 29 mg/dL (8.4-25.7); Calc. Creatinine Clearance 111 mL/min (70-130); Carbon Dioxide 20 mmol/L (22-29); Chloride 108 mmol/L (98-107); Estimated GFR-MDRD Greater than 90; Glucose 149 mg/dL (70-105); Potassium 5.2 mmol/L (3.5-5.1); Sodium 138 mmol/L (136-145)
[2020-09-05 04:02] LABS: Band 9 % (5-11); Lymphocytes 8 % (21-51); MDiff Complete? YES; Mean Corpuscular HGB CONC 34.4 g/dL (32.0-36.0); Mean Corpuscular Hemoglobin 34.2 pg (27.0-31.0); Mean Corpuscular Volume 99.3 fL (78.0-98.0); Mean Platelet Volume 7.9 fL (7.4-10.4); Monocytes 7 % (0-10); Neutrophil 76 % (42-75); Platelet Count 205 thou/uL (130-400); RBC Distribution Width 12.2 % (11.5-14.5); Red Blood Cell (RBC) Count 3.22 mill/uL (4.70-6.10); White Blood Cell (WBC) Count 15.6 thou/uL (4.8-10.8)
[2020-09-05] MEDS: Dexamethasone 4 mg/ml Vial SLOW IVP SCH ×4 (05:11→23:14)
[2020-09-05] MEDS: Budesonide 0.5 MG/2 ML NEB NEB SCH ×2 (07:26→18:31)
[2020-09-05 07:46] LABS: Actual Bicarbonate (HCO3a) 22.7 mEq/L (22-28); Base Excess (BEa) -1.5 mEq/L (-2.0 to +3.0); CO2 Tension 36.3 mmHg (35.0-45.0); Calcium, Ionized (arterial) 1.26 mmol/L (1.12-1.30); Carboxyhemoglobin (COHb) 0.4 gm% (0.0-3.0); pH, Arterial 7.41 (7.35-7.45)
[2020-09-05 07:48] LABS: Puncture Site RRA
[2020-09-05 07:49] LABS: ALV-art Gradient 97.825 mmHg (0-20)
[2020-09-05] MEDS: Acetaminophen 325 MG TAB PO PRN (08:12)
[2020-09-05] MEDS: Amlodipine 5 MG TAB PO SCH ×2 (08:12→20:15)
[2020-09-05] MEDS: cloNIDine 0.2 MG TAB PO SCH (08:12)
[2020-09-05] MEDS ORDERED: DC Sedation Protocol FS ONE (09:16)
--- NOTE | 2020-09-05 10:56 | RAD ---
Chest one view HISTORY: Dyspnea. Follow-up. COMPARISON: 09/04/2020. FINDINGS: Cardiac silhouette is magnified by projection. Pulmonary vasculature is unremarkable. Mediastinum is midline. Lines and tubes appear unchanged in position. No lobar consolidation or evidence of pneumothorax. IMPRESSION : Stable radiographic appearance of the chest.
[2020-09-05] MEDS ORDERED: DOPamine 400 MG/D5W 250 ML 250 ML IVPB PRN (11:19)
[2020-09-05] MEDS: Scopolamine 1.5 mg/72 hour Patch TOP SCH (11:47)
--- NOTE | 2020-09-05 11:58 | CCLSPC ---
DOOR TO DOOR SALESMAN: None. INDICATION: Subarachnoid hemorrhage. DIAGNOSIS: Subarachnoid hemorrhage. PROCEDURE: Digital subtraction angiography. ANESTHESIA: Local and general. TECHNIQUE: The patient was brought into the angiogram suite and placed under general anesthesia. He was placed on table in a supine position. Both groins were prepped and draped in the usual sterile fashion. Following appropriate pause, a 5[place] micropuncture set was used to gain access to the right common femoral artery. Using a Seldinger technique, a 5-[place] sheath was placed. A 5 [place] diagnostic catheter passed over a [employer] guidewire was advanced into the right internal carotid artery where several AP and lateral angiograms were performed within various planes and using several oblique views. 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 Angiography did not reveal an aneurysm, but what was a small vessel loop emanating at the location of the bifurcation. There is also a PCOM infundibulum with a diminutive posterior communicating artery emanating from that infundibulum. In short, there is no obvious aneurysm present. There is no significant vasospasm present. There is some irregularity of the intracranial portion of the internal carotid artery, suggestive of atherosclerotic disease. IMPRESSION: The patient underwent successful angiography. There is no evidence for aneurysm. Job ID: [id number]
[2020-09-05] MEDS: hydrALAZINE 25 MG TAB PO SCH ×3 (12:13→20:16)
--- NOTE | 2020-09-05 13:04 | PDOC.HOSPP ---
- Subjective Encounter Date: 09/05/20 Encounter Time: 08:30 Subjective: awake, follows verbal stimuli moves a bit of left UE, not seen him move left lower daughter at bedside has og tube for medications - Objective Vital Signs & Weight: Vital Signs (12 hours) Temp Pulse Resp BP Pulse Ox 09/05/20 12:13 63 146/79 H 09/05/20 12:00 99.1 F 09/05/20 08:12 77 147/74 H 09/05/20 08:00 99.7 F H 18 97 09/05/20 07:26 77 09/05/20 06:00 16 09/05/20 04:00 100.2 F H 15 09/05/20 03:42 169/77 H 09/05/20 02:00 16 Weight Admit Weight 199 lb Weight 211 lb 13.828 oz Most Recent Monitor Data Heart Rate from ECG 69 NIBP 151/79 NIBP BP-Mean 103 Respiration from ECG 14 SpO2 97 I&O: 09/04/20 09/05/20 09/06/20 06:59 06:59 06:59 Intake Total 1269 1955 200 Output Total 1132 2520 335 Balance 137 -565 -135 Result Diagrams: 09/05/20 03:22 09/05/20 03:22 Additional Labs: Accuchecks 09/05/20 09/04/20 03:57 21:50 POC Glucose 146 H 133 H Hospitalist ROS - Medication Medications: Active Medications Generic Name Dose Route Start Last Admin Trade Name Freq PRN Reason Stop Dose Admin Acetaminophen 650 mg 09/03/20 15:36 09/05/20 08:12 Acetaminophen 325 Mg Tab PO 650 mg Q6H PRN Administration Fever > 101 Albuterol/Ipratropium 3 ml 09/03/20 18:30 09/05/20 07:25 Ipratropium/Albuterol Sulfate 3 Ml Neb NEB 3 ml BID-RT ALEXANDR Administration Amlodipine Besylate 5 mg 09/04/20 09:00 09/05/20 08:12 Amlodipine 5 Mg Tab PO 5 mg BID ALEXANDR Administration Budesonide 0.5 mg 09/03/20 18:30 09/05/20 07:26 Budesonide 0.5 Mg/2 Ml Neb NEB 0.5 mg BID-RT ALEXANDR Administration Dexamethasone 4 mg 09/04/20 12:00 09/05/20 11:48 Dexamethasone 4 Mg/Ml Vial SLOW IVP 09/06/20 12:01 4 mg Q6HR ALEXANDR Administration Hydralazine HCl 25 mg 09/05/20 13:00 09/05/20 12:13 Hydralazine 25 Mg Tab PO 25 mg QID ALEXANDR Administration Nicardipine HCl 50 mg/ Sodium 250 mls @ 0 mls/hr 09/02/20 00:15 09/03/20 00:16 Chloride IVPB 250 mls INF ALEXANDR Administration Protocol Titrate Nimodipine 60 mg 08/31/20 13:00 09/05/20 12:13 Nimodipine 30 Mg Cap PO 60 mg Q4HR ALEXANDR Administration Pantoprazole Sodium 40 mg 09/02/20 21:00 09/04/20 20:51 Pantoprazole 40 Mg Vial IVP 40 mg 2100 ALEXANDR Administration Scopolamine 1.5 mg 09/02/20 11:15 09/05/20 11:47 Scopolamine 1.5 Mg/72 Hour Patch TOP 1.5 mg Q3D ALEXANDR Administration - Exam General Appearance: awake alert Eye: PERRL, anicteric sclera ENT: no oropharyngeal lesions, moist mucosa Neck: supple, no JVD Heart: RRR, no murmur Respiratory: no wheezes, no rales, rhonchi Gastrointestinal: soft, non-tender, non-distended, normal bowel sounds Extremities: no cyanosis, no edema Neurological: hemiplegia Hosp A/P (1) Subarachnoid hemorrhage Code(s): I60.9 - NONTRAUMATIC SUBARACHNOID HEMORRHAGE, UNSPECIFIED Status: Acute (2) Acute respiratory failure with hypoxia Code(s): J96.01 - ACUTE RESPIRATORY FAILURE WITH HYPOXIA Status: Resolved (3) Acute CVA (cerebrovascular accident) Code(s): I63.9 - CEREBRAL INFARCTION, UNSPECIFIED Status: Acute (4) CRYS (acute kidney injury) Code(s): N17.9 - ACUTE KIDNEY FAILURE, UNSPECIFIED Status: Resolved (5) Metabolic acidosis Code(s): E87.2 - ACIDOSIS Status: Acute (6) Hypertension Code(s): I10 - ESSENTIAL (PRIMARY) HYPERTENSION Status: Chronic Qualifiers: Hypertension type: essential hypertension Qualified Code(s): I10 - Essential (primary) hypertension - Plan is on nimodipine6 60mg q4h, norvasc 5mg bid, hydralazine qid, protonix, nebs clonidine was dc'd due to bradycardia has left hemiplegia got extubated 09/04/2020, is maintaining airway will obtain echo for lv function hemo/neurostable CTA and kati angio of brain did not reveal aneurysm or rupture speech eval to clear him for oral intake gave full updates to daughter at bedside PT/OT eval
[2020-09-05] MEDS: Nitroglycerin 2% Ointment 1 INCH/1 GM Packet TOP PRN ×2 (14:46→23:13)
[2020-09-05] MEDS: niCARdipine 50 MG in Sodium Chloride 0.9% 250 ML 230 ML IVPB SCH ×2 (16:26→20:30)
[2020-09-05] MEDS: Pantoprazole 40 MG VIAL IVP SCH (20:30)
[2020-09-06] MEDS: niMODipine 30 MG CAP PO SCH ×6 (01:06→20:25)
[2020-09-06] MEDS: niCARdipine 50 MG in Sodium Chloride 0.9% 250 ML 230 ML IVPB SCH ×3 (01:45→19:20)
[2020-09-06 04:00] LABS: Anion Gap 15 mmol/L (10-20); BUN (Urea Nitrogen) 30 mg/dL (8.4-25.7); Calc. Creatinine Clearance 109 mL/min (70-130); Calcium 9.2 mg/dL (7.8-10.44); Carbon Dioxide 23 mmol/L (22-29); Chloride 104 mmol/L (98-107); Estimated GFR-MDRD Greater than 90; Glucose 111 mg/dL (70-105); Sodium 137 mmol/L (136-145)
[2020-09-06] MEDS: Dexamethasone 4 mg/ml Vial SLOW IVP SCH ×2 (05:48→11:37)
--- NOTE | 2020-09-06 06:32 | PRG ---
DATE OF SERVICE: 09/05/2020 SUBJECTIVE: This morning, he is off sedation. OBJECTIVE: VITAL SIGNS: , blood pressure 151/77, respiratory rate 18, pulse 80. CHEST: No wheezing, no crackles. CARDIAC: Normal S1, S2. No gallops. ABDOMEN: No masses. LABORATORY DATA: White count 15,000, H and H 11 and 31, platelet count 205. His lytes are normal. PO2 is 142, pCO2 is 36, pH is 7.41. X-ray is clear. ASSESSMENT: 1. Respiratory failure. 2. Subarachnoid hemorrhage. 3. Secretions. 4. Hypertension. PLAN: We are in the process of trying to consider extubating the patient. As per Neurosurgery, he is going to have further workup next week including a CT and another angiogram. One-half hour of critical care time. Job ID: [id number]
[2020-09-06] MEDS: Budesonide 0.5 MG/2 ML NEB NEB SCH ×2 (07:15→18:17)
[2020-09-06] MEDS: hydrALAZINE 25 MG TAB PO SCH ×3 (08:43→20:25)
[2020-09-06] MEDS: Amlodipine 5 MG TAB PO SCH ×2 (08:44→20:26)
--- NOTE | 2020-09-06 09:25 | PRG ---
DATE OF SERVICE: 09/06/2020 SUBJECTIVE: Rober Berg was extubated yesterday. A 60-year-old gentleman who is doing better. OBJECTIVE: VITAL SIGNS: His blood pressure unfortunately remains elevated at 171/104, pulse is 82, sats 92% on room air. CHEST: No wheezing, no crackles. CARDIAC: Normal S1, S2. No gallops. ABDOMEN: No masses. LABORATORY DATA: Lytes are normal. ASSESSMENT AND PLAN: Subarachnoid hemorrhage, respiratory failure, and hypertension. Blood pressure medicine is being adjusted by the hospitalist, which we will continue. Pulmonary stone, continue supportive care. His NINO was discontinued because of persistent cough. Job ID: [id number]
[2020-09-06] MEDS ORDERED: Furosemide 40 MG/4 ML VIAL ONE (11:30)
[2020-09-06] MEDS: Nitroglycerin 2% Ointment 1 INCH/1 GM Packet TOP PRN (11:36)
[2020-09-06] MEDS ORDERED: Furosemide 40 MG/4 ML VIAL SLOW IVP SCH (11:45)
--- NOTE | 2020-09-06 12:04 | PRG ---
DATE OF SERVICE: 09/06/2020 Mr. Berg this morning is now 6 days into his hospitalization for angio negative subarachnoid hemorrhage. He has been extubated. He is alert, appropriate. He is able to twist in bed and talk to me appropriately. He actually looks quite well. I let his family knows the plan is repeat CTA tomorrow. Job ID: [id number]
--- NOTE | 2020-09-06 12:53 | PDOC.HOSPP ---
- Subjective Encounter Date: 09/06/20 Encounter Time: 08:20 Subjective: awake, interacts well, is oriented well moves right extremities well is able to swallow - Objective Vital Signs & Weight: Vital Signs (12 hours) Temp Pulse Resp BP Pulse Ox 09/06/20 12:00 99.8 F H 09/06/20 08:44 82 171/104 H 09/06/20 08:43 82 171/104 H 09/06/20 08:00 98.8 F 97 09/06/20 07:14 82 20 92 L 09/06/20 04:00 99.5 F 09/06/20 01:26 94 L Weight Admit Weight 199 lb Weight 210 lb 12.191 oz Most Recent Monitor Data Heart Rate from ECG 95 NIBP 140/80 NIBP BP-Mean 100 Respiration from ECG 25 SpO2 96 I&O: 09/05/20 09/06/20 09/07/20 06:59 06:59 06:59 Intake Total 19546 200 Output Total 0 8 775 Balance -565 71 -575 Result Diagrams: 09/05/20 03:22 09/06/20 03:12 Additional Labs: Accuchecks 09/06/20 09/05/20 10:10 23:02 POC Glucose 111 H 94 Hospitalist ROS - Medication Medications: Active Medications Generic Name Dose Route Start Last Admin Trade Name Freq PRN Reason Stop Dose Admin Acetaminophen 650 mg 09/03/20 15:36 09/05/20 08:12 Acetaminophen 325 Mg Tab PO 650 mg Q6H PRN Administration Fever > 101 Albuterol/Ipratropium 3 ml 09/03/20 18:30 09/06/20 07:14 Ipratropium/Albuterol Sulfate 3 Ml Neb NEB 3 ml BID-RT ALEXANDR Administration Amlodipine Besylate 5 mg 09/04/20 09:00 09/06/20 08:44 Amlodipine 5 Mg Tab PO 5 mg BID ALEXANDR Administration Budesonide 0.5 mg 09/03/20 18:30 09/06/20 07:15 Budesonide 0.5 Mg/2 Ml Neb NEB 0.5 mg BID-RT ALEXANDR Administration Nicardipine HCl 50 mg/ Sodium 250 mls @ 0 mls/hr 09/02/20 00:15 09/06/20 01:45 Chloride IVPB 250 mls INF ALEXANDR Administration Protocol Titrate Nimodipine 60 mg 08/31/20 13:00 09/06/20 08:44 Nimodipine 30 Mg Cap PO 60 mg Q4HR ALEXANDR Administration Nitroglycerin 0.5 inch 09/05/20 11:18 09/06/20 11:36 Nitroglycerin 2% Ointment 1 Inch/1 Gm Packet TOP 0.5 inch Q8H PRN Administration sbp >140 Pantoprazole Sodium 40 mg 09/02/20 21:00 09/05/20 20:30 Pantoprazole 40 Mg Vial IVP 40 mg 2100 ALEXANDR Administration Scopolamine 1.5 mg 09/02/20 11:15 09/05/20 11:47 Scopolamine 1.5 Mg/72 Hour Patch TOP 1.5 mg Q3D ALEXANDR Administration - Exam General Appearance: awake alert Eye: PERRL, anicteric sclera ENT: no oropharyngeal lesions, dry oral mucosa Neck: supple, no JVD Heart: RRR, no murmur Respiratory: no wheezes, no rales, rhonchi Gastrointestinal: soft, non-tender, non-distended, normal bowel sounds Extremities: no cyanosis, no edema Neurological: cranial nerve grossly intact, hemiplegia Psychiatric: A&O x 3 Hosp A/P (1) Subarachnoid hemorrhage Code(s): I60.9 - NONTRAUMATIC SUBARACHNOID HEMORRHAGE, UNSPECIFIED Status: Acute (2) Acute respiratory failure with hypoxia Code(s): J96.01 - ACUTE RESPIRATORY FAILURE WITH HYPOXIA Status: Resolved (3) Acute CVA (cerebrovascular accident) Code(s): I63.9 - CEREBRAL INFARCTION, UNSPECIFIED Status: Acute (4) CRYS (acute kidney injury) Code(s): N17.9 - ACUTE KIDNEY FAILURE, UNSPECIFIED Status: Resolved (5) Metabolic acidosis Code(s): E87.2 - ACIDOSIS Status: Resolved (6) Hypertension Code(s): I10 - ESSENTIAL (PRIMARY) HYPERTENSION Status: Chronic Qualifiers: Hypertension type: essential hypertension Qualified Code(s): I10 - Essential (primary) hypertension - Plan is on nimodipine6 60mg q4h, norvasc 5mg bid, hydralazine 50mg qid, add hctz 25g daily and low dose coreg, protonix, nebs hopefully he can come off cardene drip with above. clonidine was dc'd due to bradycardia, hope he tolerates coreg. has left hemiplegia got extubated 09/04/2020, is maintaining airway and tolerating diet. will obtain echo for lv function hemo/neurostable CTA and kati angio of brain did not reveal aneurysm or rupture, repeat CTA of brain in am. gave full updates to daughter at bedside 09/05 PT/OT/speech ongoing eval
[2020-09-06] MEDS ORDERED: Hydrochlorothiazide 25 MG TAB PO SCH (13:00)
[2020-09-06] MEDS: Carvedilol 6.25 MG TAB PO SCH (16:38)
[2020-09-06] MEDS: Pantoprazole 40 MG VIAL IVP SCH (20:26)
[2020-09-07] MEDS: niCARdipine 50 MG in Sodium Chloride 0.9% 250 ML 230 ML IVPB SCH ×4 (00:04→19:58)
[2020-09-07] MEDS: niMODipine 30 MG CAP PO SCH ×6 (01:13→19:59)
[2020-09-07 04:13] LABS: Anion Gap 14 mmol/L (10-20); BUN (Urea Nitrogen) 33 mg/dL (8.4-25.7); Calc. Creatinine Clearance 101 mL/min (70-130); Calcium 9.1 mg/dL (7.8-10.44); Carbon Dioxide 23 mmol/L (22-29); Chloride 102 mmol/L (98-107); Estimated GFR-MDRD 85; Glucose 120 mg/dL (70-105); Potassium 4.1 mmol/L (3.5-5.1); Sodium 135 mmol/L (136-145)
[2020-09-07] MEDS: Budesonide 0.5 MG/2 ML NEB NEB SCH ×2 (07:46→18:30)
[2020-09-07] MEDS: hydrALAZINE 25 MG TAB PO SCH ×3 (08:07→19:58)
[2020-09-07] MEDS: Carvedilol 6.25 MG TAB PO SCH ×2 (08:07→16:34)
[2020-09-07] MEDS: Amlodipine 5 MG TAB PO SCH ×2 (08:07→19:58)
[2020-09-07] MEDS: Hydrochlorothiazide 25 MG TAB PO SCH (08:08)
--- NOTE | 2020-09-07 09:03 | CT ---
PRELIMINARY REPORT/DIRECT RADIOLOGY/EMERGENCY AFTER HOURS PROCEDURE: EXAM: CTA Head and Neck with Intravenous Contrast. CT Head with/without Contrast. CLINICAL HISTORY: F/U [facility] TECHNIQUE: Axial CTA images of the head and neck performed with intravenous contrast. MIP reconstruct ed images were created and reviewed. Axial computed tomography images of the head/brain performed wit h/without intravenous contrast. Note: Per PQRS, the description of internal carotid artery percent st enosis, including 0 percent or normal exam, is based on [place] Symptomatic Carotid Endarterec mohamud Trial (NASCET) criteria. CONTRAST: With; ISOVUE 370,100mL COMPARISON: CT\SR - CT BRAIN WO CON - 08/31/2020 02:[address]\MI\SR - CTA ANGIO HEAD W WO 08/31/2020 09:17 AM CDT FINDINGS: CT HEAD: BRAIN: Right hemispheric subarachnoid hemorrhage is again noted, however decreased since prior study. There was interval resolution of subarachnoid hemorrhage previously seen within the quadrigeminal p late cistern. VENTRICLES: No hydrocephalus. ORBITS: The orbits are unremarkable. SINUSES AND MASTOIDS: The paranasal sinuses and mastoid air cells are clear. CTA NECK: The study is motion degraded. COMMON CAROTID ARTERIES No significant stenosis. No dissection or occlusion. INTERNAL CAROTID ARTERIES No stenosis by NASCET criteria. No dissection or occlusion. VERTEBRAL ARTERIES No significant stenosis. No dissection or occlusion. CTA HEAD: Study is motion degraded. 2 mm posteromedially directed aneurysm involving the right caroti d terminus is again seen, unchanged since prior study. ANTERIOR CEREBRAL ARTERIES No significant stenosis. No occlusion. No aneurysm. MIDDLE CEREBRAL ARTERIES Again noted is a 2.5 mm aneurysm of the distal right MCA at the level of the trifurcation directed anteromedially, unchanged since recent prior study. No significant stenosis. No occlusion. POSTERIOR CEREBRAL ARTERIES No significant stenosis. No occlusion. No aneurysm. BASILAR ARTERY No significant stenosis. No occlusion. No aneurysm. OTHER: SOFT TISSUES No acute finding. No masses or lymphadenopathy. BONES No acute osseous abnormality. IMPRESSION: 1. Persistent, yet decreasing subarachnoid hemorrhage within the right cerebral convexity. 2. No significant change in aneurysms involving the right MCA trifurcation measuring 2.5 mm and a 2 mm aneurysm involving the right carotid terminus. ELECTRONICALLY SIGNED BY: Radha Rosales MD Sep 07, 2020 5:49:10 AM CDT FINAL REPORT CTA HEAD WITH AND WITHOUT CONTRAST CTA NECK WITH CONTRAST: TECHNIQUE: Axial tomograms obtained through the head and neck following angio protocol with multiplanar reconstr uction and 3D postprocessing. INDICATION: Subarachnoid hemorrhage. Aneurysm. Followup. COMPARISON: CT brain 08/31/2020 and CTA head 08/31/2020. FINDINGS: CTA HEAD WIHTOUT CONTRAST: Acute subarachnoid hemorrhage again noted within the sulci of the superior right frontal and parietal lobes. Some subtle subarachnoid hemorrhage also is seen in the superior left frontoparietal region along the central sulcus superiorly. Hemorrhage in the skull base in the right middle cranial fossa with some blood extending into the anterior cranial fossa inferiorly is again seen but less pronounce d today. The blood in the basilar cisterns has significantly decreased. IMPRESSION: Continued evidence of subarachnoid hemorrhage; however, significant improvement in the subarachnoid b lood when compared to 08/31/2020. CTA HEAD: The tiny aneurysm seen at the right carotid terminus is again noted and appears unchanged. Just peripheral to this right M1 segment is a small infundibulum at the origin of the right A1 segmen t. The small aneurysmal seen of the more peripheral right M1 segment near the genu is again seen without significant change in appearance. IMPRESSION: No significant change in the previously described right middle cerebral aneurysms. CTA NECK: Origin of the arch vessels is unremarkable. Common carotid arteries unremarkable. No significant atherosclerotic change is seen in the bulbs. Motion artifact degrades evaluation of t he bulbs; however, there is no evidence of stenosis in either extracranial or internal carotid artery . Vertebral arteries appear patent and symmetric. Artifact degrades evaluation of the mid neck region. IMPRESSION: Unremarkable CTA neck. POS: OFF
--- NOTE | 2020-09-07 09:45 | PRG ---
DATE OF SERVICE: 09/07/2020 SUBJECTIVE: This morning, he is awake, alert, and responsive. He is better. OBJECTIVE: VITAL SIGNS: Blood pressure still remains elevated on Cardene at 141/53, pulse 82, respirations 18. CHEST: No wheezing. No crackles. CARDIAC: Normal S1 and S2. No gallops. ABDOMEN: No masses. NEUROLOGIC: The patient is awake, alert, and responsive. LABORATORY DATA: Lytes are normal. Repeat CT angio shows decreased subarachnoid hemorrhage seen. ASSESSMENT AND PLAN: 1. Hypertensive. 2. presumably not seen on routine angiogram, but seen on CT angio. Disposition as per Neurosurgery. Blood pressure medicine is being adjusted. Job ID: [id number]
--- NOTE | 2020-09-07 15:28 | PDOC.HOSPP ---
- Subjective Encounter Date: 09/07/20 Subjective: Patient is doing well today. He is very eager to get up and moving and go outside. Has pretty good movement on his left side today. - Objective Vital Signs & Weight: Vital Signs (12 hours) Temp Pulse Resp BP Pulse Ox 09/07/20 12:00 98.7 F 09/07/20 08:07 93 163/74 H 09/07/20 08:00 98.8 F 95 09/07/20 07:43 84 18 96 09/07/20 04:00 98.7 F Weight Admit Weight 199 lb Weight 201 lb 8.32 oz Most Recent Monitor Data Heart Rate from ECG 85 NIBP 154/70 NIBP BP-Mean 98 Respiration from ECG 18 SpO2 95 I&O: 09/06/20 09/07/20 09/08/20 06:59 06:59 06:59 Intake Total 2126 2230 240 Output Total 4 4240 1110 Balance 71 -2010 -870 Result Diagrams: 09/05/20 03:22 09/07/20 03:39 Additional Labs: Accuchecks 09/07/20 09/06/20 09/05/20 11:05 16:00 16:39 POC Glucose 92 126 H 128 H 09/05/20 10:47 POC Glucose 129 H Hospitalist ROS - Medication Medications: Active Medications Generic Name Dose Route Start Last Admin Trade Name Freq PRN Reason Stop Dose Admin Acetaminophen 650 mg 09/03/20 15:36 09/05/20 08:12 Acetaminophen 325 Mg Tab PO 650 mg Q6H PRN Administration Fever > 101 Albuterol/Ipratropium 3 ml 09/03/20 18:30 09/07/20 07:43 Ipratropium/Albuterol Sulfate 3 Ml Neb NEB 3 ml BID-RT ALEXANDR Administration Amlodipine Besylate 5 mg 09/04/20 09:00 09/07/20 08:07 Amlodipine 5 Mg Tab PO 5 mg BID ALEXANDR Administration Budesonide 0.5 mg 09/03/20 18:30 09/07/20 07:46 Budesonide 0.5 Mg/2 Ml Neb NEB 0.5 mg BID-RT ALEXANDR Administration Carvedilol 6.25 mg 09/06/20 17:00 09/07/20 08:07 Carvedilol 6.25 Mg Tab PO 6.25 mg BID-WM ALEXANDR Administration Hydralazine HCl 50 mg 09/06/20 15:00 09/07/20 08:07 Hydralazine 25 Mg Tab PO 50 mg TID ALEXANDR Administration Hydrochlorothiazide 25 mg 09/07/20 09:00 09/07/20 08:08 Hydrochlorothiazide 25 Mg Tab PO 25 mg DAILY ALEXANDR Administration Nicardipine HCl 50 mg/ Sodium 250 mls @ 0 mls/hr 09/02/20 00:15 09/07/20 05:32 Chloride IVPB 250 mls INF ALEXANDR Administration Protocol Titrate Nimodipine 60 mg 08/31/20 13:00 09/07/20 13:21 Nimodipine 30 Mg Cap PO 60 mg Q4HR ALEXANDR Administration Nitroglycerin 0.5 inch 09/05/20 11:18 09/06/20 11:36 Nitroglycerin 2% Ointment 1 Inch/1 Gm Packet TOP 0.5 inch Q8H PRN Administration sbp >140 Pantoprazole Sodium 40 mg 09/02/20 21:00 09/06/20 20:26 Pantoprazole 40 Mg Vial IVP 40 mg 2100 ALEXANDR Administration Scopolamine 1.5 mg 09/02/20 11:15 09/05/20 11:47 Scopolamine 1.5 Mg/72 Hour Patch TOP 1.5 mg Q3D ALEXANDR Administration - Exam General Appearance: NAD, awake alert Heart: RRR, no murmur, no gallops, no rubs, normal peripheral pulses Respiratory: CTAB, no wheezes, no rales, no ronchi, normal chest expansion, no tachypnea, normal percussion Gastrointestinal: soft, non-tender, non-distended, normal bowel sounds, no palpable masses, no hepatomegaly, no splenomegaly, no bruit Extremities: no cyanosis, no clubbing, no edema Skin: normal turgor Neurological - other findings: Is able to lift his left upper extremity fairly well. 3+ to 4 strength LLE Psychiatric: normal affect, normal behavior, A&O x 3 Hosp A/P (1) Respiratory failure requiring intubation Code(s): J96.90 - RESPIRATORY FAILURE, UNSP, UNSP W HYPOXIA OR HYPERCAPNIA Status: Resolved (2) Subarachnoid hemorrhage Code(s): I60.9 - NONTRAUMATIC SUBARACHNOID HEMORRHAGE, UNSPECIFIED Status: Acu te (3) CRYS (acute kidney injury) Code(s): N17.9 - ACUTE KIDNEY FAILURE, UNSPECIFIED Status: Resolved (4) Acute respiratory failure with hypoxia Code(s): J96.01 - ACUTE RESPIRATORY FAILURE WITH HYPOXIA Status: Resolved (5) Hypertension Code(s): I10 - ESSENTIAL (PRIMARY) HYPERTENSION Status: Chronic Qualifiers: Hypertension type: essential hypertension Qualified Code(s): I10 - Essential (primary) hypertension (6) Left hemiplegia Code(s): G81.94 - HEMIPLEGIA, UNSPECIFIED AFFECTING LEFT NONDOMINANT SIDE Status: Acute - Plan Acute respiratory failure with hypoxia: Resolved Subarachnoid hemorrhage: Repeat CT scan today shows some resolution of the blood. He continues to have improving movement on his left side. Currently requiring IV medications to control the blood pressure. Continue therapy. Hypertension: Had additional hydrochlorothiazide added today and will increase his carvedilol to 12.5 mg twice daily. Continue to titrate p.o. medications in order to get him off the IV. Continue with amlodipine, nimodipine and nicardipine drip. CRYS: Resolved.
[2020-09-07] MEDS: Nitroglycerin 2% Ointment 1 INCH/1 GM Packet TOP PRN (16:33)
[2020-09-07] MEDS: Pantoprazole 40 MG VIAL IVP SCH (19:59)
[2020-09-08] MEDS: niMODipine 30 MG CAP PO SCH ×6 (00:49→21:32)
[2020-09-08] MEDS: niCARdipine 50 MG in Sodium Chloride 0.9% 250 ML 230 ML IVPB SCH ×3 (00:50→09:14)
[2020-09-08 04:25] LABS: Calcium 8.5 mg/dL (7.8-10.44); Chloride 101 mmol/L (98-107); Potassium 3.9 mmol/L (3.5-5.1); Sodium 134 mmol/L (136-145)
[2020-09-08 04:39] LABS: BUN (Urea Nitrogen) 30 mg/dL (8.4-25.7); Calc. Creatinine Clearance 97 mL/min (70-130); Carbon Dioxide 20 mmol/L (22-29); Estimated GFR-MDRD 86; Glucose 96 mg/dL (70-105)
[2020-09-08 05:21] LABS: Anion Gap 17 mmol/L (10-20)
[2020-09-08] MEDS: Budesonide 0.5 MG/2 ML NEB NEB SCH ×2 (08:08→19:52)
--- NOTE | 2020-09-08 08:29 | PRG ---
DATE OF SERVICE: 09/08/2020 Mr. Berg is on the 8th day of his hospital stay following a perimesencephalic subarachnoid hemorrhage with nonaneurysmal source. Today, he is in the bed in the ICU, awake, alert, interactive and appropriate. He has been extubated over the weekend. Speech is uninhibited and he knows where he is, he is able to tell me his name, date of , the month. He has excellent function in the right upper and right lower extremities. His left upper and left lower extremity have improved tremendously from his initial presentation, but are still weak in comparison. He is motivated to start working with therapy and getting out of bed more, which I think is a reasonable thing to do at this time. His sodium has started to trend down since the last several days. Currently, this morning it is 134. We will recheck this afternoon and also draw a UA and urine sodium. His urine output is somewhat elevated as compared to last week with drastically reduced input. Pressures continue to run somewhat high and he is Cardene dependent at the moment. We will continue to work toward weaning him from this with eventual transition to the floor. Otherwise, no additional intervention at this time. Job ID: [id number]
[2020-09-08] MEDS: Hydrochlorothiazide 25 MG TAB PO SCH (08:39)
[2020-09-08] MEDS: hydrALAZINE 25 MG TAB PO SCH ×3 (08:40→21:32)
[2020-09-08] MEDS: Amlodipine 5 MG TAB PO SCH ×2 (08:40→21:32)
[2020-09-08] MEDS: Carvedilol 6.25 MG TAB PO SCH ×2 (08:41→16:40)
--- NOTE | 2020-09-08 09:22 | PRG ---
DATE OF SERVICE: 09/08/2020 SUBJECTIVE: Rober Berg this morning is awake, alert, and responsive, still hypertensive. OBJECTIVE: VITAL SIGNS: Blood pressure 164/84, pulse 100, and respiratory rate 18. GENERAL: Awake, alert, and responsive. CHEST: No wheezing. No crackles. CARDIAC: Normal S1 and S2. No gallops. ABDOMEN: No masses. ASSESSMENT AND PLAN: Hypertension, subarachnoid hemorrhage. His blood pressure medicine is being adjusted. I will start him on Catapres. I will discontinue this hydrochlorothiazide, he has a subarachnoid hemorrhage, did not need a diuretic. Continue nicardipine. Discontinue scopolamine patch. Hopefully, he can be transferred out of the ICU once blood pressure is controlled. Job ID: [id number]
[2020-09-08] MEDS: cloNIDine 0.2 MG TAB PO SCH ×2 (09:36→21:32)
[2020-09-08] MEDS: Sodium Chloride 0.9% 1,000 ML IV SCH (12:43)
--- NOTE | 2020-09-08 16:45 | PDOC.HOSPP ---
- Subjective Encounter Date: 09/08/20 Subjective: Feeling well overall. No complaints. Ready to get moving. - Objective Vital Signs & Weight: Vital Signs (12 hours) Temp Pulse Pulse Pulse Resp BP BP 09/08/20 15:55 99.6 F 74 22 H 09/08/20 12:03 69 67 102/63 09/08/20 11:00 99.3 F 09/08/20 09:36 164/84 H 09/08/20 08:41 164/84 H 09/08/20 08:40 85 09/08/20 08:08 09/08/20 08:07 85 21 H 09/08/20 07:20 09/08/20 07:00 99.5 F BP BP Pulse Ox Pulse Ox Pulse Ox 09/08/20 15:55 119/60 96 09/08/20 12:03 121/62 97 97 09/08/20 11:00 09/08/20 09:36 09/08/20 08:41 09/08/20 08:40 09/08/20 08:08 97 09/08/20 08:07 97 09/08/20 07:20 96 09/08/20 07:00 Weight Admit Weight 199 lb Weight 201 lb 15.095 oz Most Recent Monitor Data Heart Rate from ECG 67 NIBP 112/59 NIBP BP-Mean 76 Respiration from ECG 17 SpO2 95 I&O: 09/07/20 09/08/20 09/09/20 06:59 06:59 06:59 Intake Total 2230 1943 245 Output Total 8853 2985 545 [facility] -2010 -1042 -300 Result Diagrams: 09/05/20 03:22 09/08/20 03:29 Hospitalist ROS - Medication Medications: Active Medications Generic Name Dose Route Start Last Admin Trade Name Freq PRN Reason Stop Dose Admin Acetaminophen 650 mg 09/03/20 15:36 09/05/20 08:12 Acetaminophen 325 Mg Tab PO 650 mg Q6H PRN Administration Fever > 101 Albuterol/Ipratropium 3 ml 09/03/20 18:30 09/08/20 08:07 Ipratropium/Albuterol Sulfate 3 Ml Neb NEB 3 ml BID-RT ALEXANDR Administration Amlodipine Besylate 5 mg 09/04/20 09:00 09/08/20 08:40 Amlodipine 5 Mg Tab PO 5 mg BID ALEXANDR Administration Budesonide 0.5 mg 09/03/20 18:30 09/08/20 08:08 Budesonide 0.5 Mg/2 Ml Neb NEB 0.5 mg BID-RT ALEXANDR Administration Carvedilol 12.5 mg 09/07/20 17:00 09/08/20 16:40 Carvedilol 6.25 Mg Tab PO 12.5 mg BID-WM ALEXANDR Administration Clonidine 0.2 mg 09/08/20 09:00 09/08/20 09:36 Clonidine 0.2 Mg Tab PO 0.2 mg BID ALEXANDR Administration Hydralazine HCl 50 mg 09/06/20 15:00 09/08/20 16:26 Hydralazine 25 Mg Tab PO Not Given TID ALEXANDR Nicardipine HCl 50 mg/ Sodium 250 mls @ 0 mls/hr 09/02/20 00:15 09/08/20 09:14 Chloride IVPB 250 mls INF ALEXANDR Administration Protocol Titrate Sodium Chloride 1,000 mls @ 60 mls/hr 09/08/20 10:54 09/08/20 12:43 Normal Saline 0.9% IV 1,000 mls .[id number] ALEXANDR Administration Nimodipine 60 mg 08/31/20 13:00 09/08/20 16:26 Nimodipine 30 Mg Cap PO Not Given Q4HR ALEXANDR Nitroglycerin 0.5 inch 09/05/20 11:18 09/07/20 16:33 Nitroglycerin 2% Ointment 1 Inch/1 Gm Packet TOP 0.5 inch Q8H PRN Administration sbp >140 - Exam General Appearance: NAD, awake alert Heart: RRR, no murmur, no gallops, no rubs, normal peripheral pulses Respiratory: CTAB, no wheezes, no rales, no ronchi, normal chest expansion, no tachypnea, normal percussion Extremities: no cyanosis, no clubbing, no edema Skin: normal turgor Neurological - other findings: Persistent distal weakness L side. Proximal muscles better. Psychiatric: normal affect, normal behavior, A&O x 3 Hosp A/P (1) Respiratory failure requiring intubation Code(s): J96.90 - RESPIRATORY FAILURE, UNSP, UNSP W HYPOXIA OR HYPERCAPNIA Status: Resolved (2) Subarachnoid hemorrhage Code(s): I60.9 - NONTRAUMATIC SUBARACHNOID HEMORRHAGE, UNSPECIFIED Status: Acute (3) CRYS (acute kidney injury) Code(s): N17.9 - ACUTE KIDNEY FAILURE, UNSPECIFIED Status: Resolved (4) Acute respiratory failure with hypoxia Code(s): J96.01 - ACUTE RESPIRATORY FAILURE WITH HYPOXIA Status: Resolved (5) Hypertension Code(s): I10 - ESSENTIAL (PRIMARY) HYPERTENSION Status: Chronic Qualifiers: Hypertension type: essential hypertension Qualified Code(s): I10 - Essential (primary) hypertension (6) Left hemiplegia Code(s): G81.94 - HEMIPLEGIA, UNSPECIFIED AFFECTING LEFT NONDOMINANT SIDE Status: Acute (7) Hyponatremia Code(s): E87.1 - HYPO-OSMOLALITY AND HYPONATREMIA Status: Acute - Plan Acute respiratory failure with hypoxia: Resolved Subarachnoid hemorrhage: Repeat CT scan shows some resolution of the blood. He continues to have improving movement on his left side. Continue therapy. Hypertension: BP meds changed. BP improved today. Weaned off the Cardene gtt. By this afternoon, I am holding some meds. CRYS: Resolved. Hyponatremia: IVF started by neurosurg. Recheck in am.
[2020-09-08 16:49] LABS: Anion Gap 16 mmol/L (10-20); BUN (Urea Nitrogen) 38 mg/dL (8.4-25.7); Calc. Creatinine Clearance 87 mL/min (70-130); Calcium 8.6 mg/dL (7.8-10.44); Carbon Dioxide 21 mmol/L (22-29); Chloride 101 mmol/L (98-107); Estimated GFR-MDRD 75; Glucose 101 mg/dL (70-105); Sodium 134 mmol/L (136-145)
[2020-09-09] MEDS: niMODipine 30 MG CAP PO SCH ×6 (01:21→21:53)
[2020-09-09] MEDS: Sodium Chloride 0.9% 1,000 ML IV SCH ×2 (04:56→21:55)
[2020-09-09] MEDS: Budesonide 0.5 MG/2 ML NEB NEB SCH ×2 (06:49→18:27)
--- NOTE | 2020-09-09 08:08 | PRG ---
DATE OF SERVICE: 09/09/2020 Mr. Berg is a 60-year-old gentleman, who presented with intracranial subarachnoid hemorrhage. He has been transitioned from the ICU to the stroke unit. He continues to make substantial improvements with each day with a remarkable neurologic recovery as compared to presentation. He has had two CT angiograms performed since admission. 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 He has had one digital subtraction angiogram performed, which failed to show any evidence for aneurysm. There has been no evidence for vasospasm or clinical hydrocephalus. He continues to improve and I expect he will be able to go to inpatient rehab over the short course after PT/OT evaluation and appropriate approvals. We will bring him back for a repeat angiogram over the next couple of weeks for confirmation of the first angiogram. I discussed this with him today. Job ID: [id number] ANIKA
[2020-09-09] MEDS: cloNIDine 0.2 MG TAB PO SCH ×2 (09:57→21:53)
[2020-09-09] MEDS: Carvedilol 6.25 MG TAB PO SCH ×2 (09:58→16:46)
[2020-09-09] MEDS: Amlodipine 5 MG TAB PO SCH ×2 (09:58→21:54)
[2020-09-09] MEDS: hydrALAZINE 25 MG TAB PO SCH ×3 (09:59→21:53)
--- NOTE | 2020-09-09 10:40 | PRG ---
DATE OF SERVICE: 09/09/2020 SUBJECTIVE: Rober Berg is a 60-year-old gentleman, who was transferred out of the ICU yesterday. OBJECTIVE: VITAL SIGNS: Temperature 98.6, respiratory rate 18, sats 96% on 2 L, blood pressure 141/77. CHEST: No wheezing. No crackles. CARDIAC: Normal S1, S2. No gallops. ABDOMEN: No masses. ASSESSMENT: Status post subarachnoid hemorrhage; respiratory failure, improved angiogram showing aneurysm. Neurosurgery is following. PLAN: Disposition as per Neurosurgery. Pulmonary is going to follow at a distance. Please call if needed. Job ID: [id number]
--- NOTE | 2020-09-09 11:30 | PDOC.HOSPP ---
- Subjective Encounter Date: 09/09/20 Encounter Time: 11:25 Subjective: f/u for SAH managed conservatively with plans for inpt rehab pending. - Objective Vital Signs & Weight: Vital Signs (12 hours) Temp Pulse Resp BP Pulse Ox 09/09/20 08:00 98.6 F 60 18 141/77 H 96 09/09/20 06:49 92 L 09/09/20 06:47 64 20 92 L 09/09/20 04:11 98.8 F 63 18 143/78 H 97 09/08/20 23:52 98.8 F 61 16 135/74 98 Weight Admit Weight 199 lb Weight 202 lb 1.6 oz Most Recent Monitor Data Heart Rate from ECG 67 NIBP 112/59 NIBP BP-Mean 76 Respiration from ECG 17 SpO2 95 I&O: 09/08/20 09/09/20 09/10/20 06:59 06:59 06:59 Intake Total 1943 545 960 Output Total 2985 895 1050 [facility] -1042 -350 -90 Result Diagrams: 09/05/20 03:22 09/08/20 16:21 EKG Reviewed by me: Yes (Tele - SR) Hospitalist ROS - Medication Medications: Active Medications Generic Name Dose Route Start Last Admin Trade Name Freq PRN Reason Stop Dose Admin Acetaminophen 650 mg 09/03/20 15:36 09/05/20 08:12 Acetaminophen 325 Mg Tab PO 650 mg Q6H PRN Administration Fever > 101 Albuterol/Ipratropium 3 ml 09/03/20 18:30 09/09/20 06:47 Ipratropium/Albuterol Sulfate 3 Ml Neb NEB 3 ml BID-RT ALEXANDR Administration Amlodipine Besylate 5 mg 09/04/20 09:00 09/09/20 09:58 Amlodipine 5 Mg Tab PO 5 mg BID ALEXANDR Administration Budesonide 0.5 mg 09/03/20 18:30 09/09/20 06:49 Budesonide 0.5 Mg/2 Ml Neb NEB 0.5 mg BID-RT ALEXANDR Administration Carvedilol 12.5 mg 09/07/20 17:00 09/09/20 09:58 Carvedilol 6.25 Mg Tab PO 12.5 mg BID-WM ALEXANDR Administration Clonidine 0.2 mg 09/08/20 09:00 09/09/20 09:57 Clonidine 0.2 Mg Tab PO 0.2 mg BID ALEXANDR Administration Hydralazine HCl 50 mg 09/06/20 15:00 09/09/20 09:59 Hydralazine 25 Mg Tab PO 50 mg TID ALEXANDR Administration Nicardipine HCl 50 mg/ Sodium 250 mls @ 0 mls/hr 09/02/20 00:15 09/08/20 09:14 Chloride IVPB 250 mls INF ALEXANDR Administration Protocol Titrate Sodium Chloride 1,000 mls @ 60 mls/hr 09/08/20 10:54 09/09/20 04:56 Normal Saline 0.9% IV 1,000 mls .[id number] ALEXANDR Administration Nimodipine 60 mg 08/31/20 13:00 09/09/20 10:00 Nimodipine 30 Mg Cap PO 60 mg Q4HR ALEXANDR Administration Nitroglycerin 0.5 inch 09/05/20 11:18 09/07/20 16:33 Nitroglycerin 2% Ointment 1 Inch/1 Gm Packet TOP 0.5 inch Q8H PRN Administration sbp >140 Pantoprazole Sodium 40 mg 09/09/20 09:00 09/09/20 10:00 Pantoprazole 40 Mg Tab PO 40 mg DAILY ALEXANDR Administration - Exam General Appearance: NAD, awake alert Eye: PERRL, anicteric sclera ENT: normocephalic atraumatic, no oropharyngeal lesions Neck: supple, symmetric, no JVD, no thyromegaly, no lymphadenopathy Heart: RRR, no murmur, no gallops, no rubs, normal peripheral pulses Heart - other findings: S1, S2 Respiratory: CTAB, no wheezes, no rales, no ronchi, normal chest expansion, no tachypnea Gastrointestinal: soft, non-tender, non-distended, normal bowel sounds, no palpable masses Extremities: no cyanosis, no clubbing, no edema Skin: normal turgor, no lesions Neurological: cranial nerve grossly intact, no new deficit Neurological - other findings: KOMAL/LE weakness Musculoskeletal: normal tone, generalized weakness Psychiatric: normal affect, A&O x 3 Hosp A/P (1) Acute CVA (cerebrovascular accident) Code(s): I63.9 - CEREBRAL INFARCTION, UNSPECIFIED Status: Acute Plan: SAH managed conservatively, Stroke protocol, PT/OT (2) Left hemiplegia Code(s): G81.94 - HEMIPLEGIA, UNSPECIFIED AFFECTING LEFT NONDOMINANT SIDE Status: Acute Plan: Improved, continue PT/OT for mobilization (3) Subarachnoid hemorrhage Code(s): I60.9 - NONTRAUMATIC SUBARACHNOID HEMORRHAGE, UNSPECIFIED Status: Acute Plan: See above, serial CT brain scans (4) CRYS (acute kidney injury) Code(s): N17.9 - ACUTE KIDNEY FAILURE, UNSPECIFIED Status: Acute Plan: Resolving, avoid nephrotoxic meds and limit contrast exposure (5) Hypertension Code(s): I10 - ESSENTIAL (PRIMARY) HYPERTENSION Status: Chronic Qualifiers: Hypertension type: essential hypertension Qualified Code(s): I10 - Essential (primary) hypertension Plan: Improved, continue current BP regimen, serial monitoring - Plan PT/OT, social worker assistant, out of bed/ambulate, DVT proph w/SCDs Stable currently Continue routine stroke protocol Awaiting approval for inpt rehab PT/OT for mobilization AM lab: BMP Likely to rehab in 24h
[2020-09-09 12:07] LABS: Chloride 101 mmol/L (98-107); Potassium 3.8 mmol/L (3.5-5.1); Sodium 132 mmol/L (136-145)
[2020-09-09 12:08] LABS: Calcium 8.4 mg/dL (7.8-10.44); Glucose 122 mg/dL (70-105)
[2020-09-09 12:10] LABS: Anion Gap 13 mmol/L (10-20); Carbon Dioxide 22 mmol/L (22-29)
[2020-09-09 12:11] LABS: Calc. Creatinine Clearance 107 mL/min (70-130); Estimated GFR-MDRD Greater than 90
[2020-09-09 12:12] LABS: BUN (Urea Nitrogen) 29 mg/dL (8.4-25.7)
[2020-09-09] MEDS ORDERED: FLU VACC QS2020-21(6MOS UP)/PF 60 MCG/0.5 ML SYRINGE IM ONE (12:30)
[2020-09-09] MEDS ORDERED: Nicotine 14 MG PATCH TOP SCH (16:00)
[2020-09-10] MEDS: niMODipine 30 MG CAP PO SCH ×6 (02:48→21:27)
[2020-09-10] MEDS: Cepastat Lozenges 1 LOZ PO PRN (02:48)
[2020-09-10] MEDS: diphenhydrAMINE 50 MG/ML VIAL IVP PRN ×2 (03:34→21:28)
[2020-09-10 05:58] LABS: Anion Gap 11 mmol/L (10-20); BUN (Urea Nitrogen) 24 mg/dL (8.4-25.7); Calc. Creatinine Clearance 108 mL/min (70-130); Calcium 8.2 mg/dL (7.8-10.44); Carbon Dioxide 23 mmol/L (22-29); Chloride 104 mmol/L (98-107); Estimated GFR-MDRD Greater than 90; Glucose 102 mg/dL (70-105); Potassium 4.3 mmol/L (3.5-5.1); Sodium 134 mmol/L (136-145)
[2020-09-10] MEDS: Budesonide 0.5 MG/2 ML NEB NEB SCH ×2 (06:42→19:23)
[2020-09-10] MEDS: Acetaminophen 325 MG TAB PO PRN (08:34)
[2020-09-10] MEDS: cloNIDine 0.2 MG TAB PO SCH (08:37)
[2020-09-10] MEDS: Carvedilol 6.25 MG TAB PO SCH ×2 (08:38→16:38)
[2020-09-10] MEDS: hydrALAZINE 25 MG TAB PO SCH ×3 (08:40→21:27)
[2020-09-10] MEDS: Amlodipine 5 MG TAB PO SCH ×2 (08:41→21:28)
--- NOTE | 2020-09-10 10:37 | PDOC.HOSPP ---
- Subjective Encounter Date: 09/10/20 Encounter Time: 10:25 Subjective: f/u for SAH with nursing noting sinus pause on tele monitoring after receiving BP meds this am including Coreg/Clonidine/Amlodpine. Pt c/o feeling dizzy during the pause episode but now feels ok. - Objective Vital Signs & Weight: Vital Signs (12 hours) Temp Pulse Resp BP Pulse Ox 09/10/20 08:15 98.1 F 60 20 183/101 H 100 09/10/20 08:00 98.1 F 60 20 183/101 H 100 09/10/20 06:42 94 L 09/10/20 06:40 58 L 20 94 L 09/10/20 04:00 142/68 H 09/10/20 00:00 98.5 F 70 20 149/75 H 98 Weight Admit Weight 199 lb Weight 202 lb 1.6 oz Most Recent Monitor Data Heart Rate from ECG 67 NIBP 112/59 NIBP BP-Mean 76 Respiration from ECG 17 SpO2 95 I&O: 09/09/20 09/10/20 09/11/20 06:59 06:59 06:59 Intake Total 545 2300 Output Total 895 1775 Balance -350 525 Result Diagrams: 09/05/20 03:22 09/10/20 04:43 EKG Reviewed by me: Yes (Tele - SR, sinus pause up to 3.6sec) Hospitalist ROS - Medication Medications: Active Medications Generic Name Dose Route Start Last Admin Trade Name Freq PRN Reason Stop Dose Admin Acetaminophen 650 mg 09/03/20 15:36 09/10/20 08:34 Acetaminophen 325 Mg Tab PO 650 mg Q6H PRN Administration Fever > 101 Albuterol/Ipratropium 3 ml 09/03/20 18:30 09/10/20 06:40 Ipratropium/Albuterol Sulfate 3 Ml Neb NEB 3 ml BID-RT ALEXANDR Administration Amlodipine Besylate 5 mg 09/04/20 09:00 09/10/20 08:41 Amlodipine 5 Mg Tab PO 5 mg BID ALEXANDR Administration Budesonide 0.5 mg 09/03/20 18:30 09/10/20 06:42 Budesonide 0.5 Mg/2 Ml Neb NEB 0.5 mg BID-RT ALEXANDR Administration Carvedilol 12.5 mg 09/07/20 17:00 09/10/20 08:38 Carvedilol 6.25 Mg Tab PO 12.5 mg BID-WM ALEXANDR Administration Clonidine 0.2 mg 09/08/20 09:00 09/10/20 08:37 Clonidine 0.2 Mg Tab PO 0.2 mg BID ALEXANDR Administration Diphenhydramine HCl 50 mg 08/31/20 09:57 09/10/20 03:34 Diphenhydramine 50 Mg/Ml Vial IVP 50 mg Q6H PRN Administration Itching or Insomnia Nicardipine HCl 50 mg/ Sodium 250 mls @ 0 mls/hr 09/02/20 00:15 09/08/20 09:14 Chloride IVPB 250 mls INF ALEXANDR Administration Protocol Titrate Sodium Chloride 1,000 mls @ 60 mls/hr 09/08/20 10:54 09/09/20 21:55 Normal Saline 0.9% IV 1,000 mls .[id number] ALEXANDR Administration Nicotine 14 mg 09/09/20 16:00 09/09/20 15:17 Nicotine 14 Mg Patch TOP 14 mg Q24HR ALEXANRD Administration Nimodipine 60 mg 08/31/20 13:00 09/10/20 08:43 Nimodipine 30 Mg Cap PO 60 mg Q4HR ALEXANDR Administration Nitroglycerin 0.5 inch 09/05/20 11:18 09/07/20 16:33 Nitroglycerin 2% Ointment 1 Inch/1 Gm Packet TOP 0.5 inch Q8H PRN Administration sbp >140 Pantoprazole Sodium 40 mg 09/09/20 09:00 09/10/20 08:42 Pantoprazole 40 Mg Tab PO 40 mg DAILY ALEXANDR Administration Throat Lozenges 1 adiel 09/10/20 00:46 09/10/20 02:48 Cepastat Lozenges 1 Adiel PO 1 adiel Q2H PRN Administration Sore Throat - Exam General Appearance: NAD, awake alert Eye: PERRL, anicteric sclera ENT: normocephalic atraumatic, no oropharyngeal lesions Neck: supple, symmetric, no JVD, no thyromegaly, no lymphadenopathy Heart: RRR, no murmur, no gallops, no rubs, normal peripheral pulses Heart - other findings: S1, S2 Respiratory: CTAB, no wheezes, no rales, no ronchi, normal chest expansion Gastrointestinal: soft, non-tender, non-distended, normal bowel sounds, no palpable masses Extremities: no cyanosis, no clubbing, no edema Skin: normal turgor, no lesions Neurological: cranial nerve grossly intact Neurological - other findings: KOMAL/LE weakness Musculoskeletal: normal tone, generalized weakness Psychiatric: normal affect, A&O x 3 Hosp A/P (1) Acute CVA (cerebrovascular accident) Code(s): I63.9 - CEREBRAL INFARCTION, UNSPECIFIED Status: Acute Plan: continue routine Stroke protocol, inpt rehab pending (2) Left hemiplegia Code(s): G81.94 - HEMIPLEGIA, UNSPECIFIED AFFECTING LEFT NONDOMINANT SIDE Status: Acute Plan: PT/OT for mobilization (3) Subarachnoid hemorrhage Code(s): I60.9 - NONTRAUMATIC SUBARACHNOID HEMORRHAGE, UNSPECIFIED Status: Acute Plan: Managed conservatively (4) CRYS (acute kidney injury) Code(s): N17.9 - ACUTE KIDNEY FAILURE, UNSPECIFIED Status: Acute Plan: Resolved, avoid nephrotoxic meds and limit contrast exposure (5) Hypertension Code(s): I10 - ESSENTIAL (PRIMARY) HYPERTENSION Status: Chronic Qualifiers: Hypertension type: essential hypertension Qualified Code(s): I10 - Essential (primary) hypertension (6) Sinus pause Code(s): I45.5 - OTHER SPECIFIED HEART BLOCK Status: Acute Plan: Likely iatrogenic due to combination of Coreg/Clonidine/Amlodipine, will hold Clonidine currently, tele monitoring, limit blocking agents, check TSH/Mg++ - Plan PT/OT, high school social studies tutor, out of bed/ambulate, DVT proph w/SCDs Stable currently Continue routine stroke protocol Awaiting approval for inpt rehab PT/OT for mobilization Hold Clonidine due to sinus pauses Increase Hydralazine 75mg TID D/C Carlene today Lab: TSH, Mg++ today AM lab: BMP Likely to rehab in 24h
[2020-09-10] MEDS: Nicotine 14 MG PATCH TOP SCH (12:21)
[2020-09-10] MEDS: Sodium Chloride 0.9% 1,000 ML IV SCH (13:04)
[2020-09-10] MEDS: Nitroglycerin 2% Ointment 1 INCH/1 GM Packet TOP PRN (23:25)
[2020-09-11] MEDS: niMODipine 30 MG CAP PO SCH ×6 (01:56→20:32)
[2020-09-11 05:15] LABS: Anion Gap 13 mmol/L (10-20); BUN (Urea Nitrogen) 17 mg/dL (8.4-25.7); Calc. Creatinine Clearance 115 mL/min (70-130); Calcium 8.6 mg/dL (7.8-10.44); Carbon Dioxide 23 mmol/L (22-29); Chloride 102 mmol/L (98-107); Estimated GFR-MDRD Greater than 90; Glucose 118 mg/dL (70-105); Sodium 134 mmol/L (136-145)
[2020-09-11] MEDS: Budesonide 0.5 MG/2 ML NEB NEB SCH ×2 (06:40→18:29)
[2020-09-11] MEDS: hydrALAZINE 25 MG TAB PO SCH ×3 (09:17→20:32)
[2020-09-11] MEDS: Amlodipine 5 MG TAB PO SCH ×2 (09:18→20:32)
[2020-09-11] MEDS: cloNIDine 0.2 MG TAB PO SCH ×2 (14:12→20:31)
[2020-09-11] MEDS: Nicotine 14 MG PATCH TOP SCH (14:12)
--- NOTE | 2020-09-11 15:59 | PDOC.HOSPP ---
- Subjective Encounter Date: 09/11/20 Encounter Time: 07:20 Subjective: Patient seen for follow-up regarding intracranial bleed. He reports left-sided weakness. He denies any fevers or chills. - Objective Vital Signs & Weight: Vital Signs (12 hours) Temp Pulse Resp BP BP BP BP 09/11/20 14:11 78 174/96 H 09/11/20 11:58 98.2 F 74 18 09/11/20 09:33 137/68 160/91 H 09/11/20 07:58 98.2 F 70 16 131/84 09/11/20 07:54 98.2 F 70 16 151/84 H 09/11/20 06:40 84 12 09/11/20 04:00 99.5 F 77 16 161/76 H BP Pulse Ox 09/11/20 14:11 09/11/20 11:58 153/87 H 98 09/11/20 09:33 09/11/20 07:58 100 09/11/20 07:54 100 09/11/20 06:40 09/11/20 04:00 99 Weight Admit Weight 199 lb Weight 180 lb 9.6 oz Most Recent Monitor Data Heart Rate from ECG 67 NIBP 112/59 NIBP BP-Mean 76 Respiration from ECG 17 SpO2 95 I&O: 09/10/20 09/11/20 09/12/20 06:59 06:59 06:59 Intake Total 2300 2112 Output Total 1775 975 Balance 525 1137 Result Diagrams: 09/05/20 03:22 09/11/20 04:32 Additional Labs: I reviewed patient's labs and MAR EKG Reviewed by me: Yes (Telemetry: Normal sinus rhythm) Hospitalist ROS - Review of Systems Cardiovascular: denies: chest pain, palpitations, orthopnea, paroxysmal noc. dyspnea, edema, light headedness Neurological: reports: weakness. denies: numbness, incoordination, change in speech, confusion, seizures - Medication Medications: Active Medications Generic Name Dose Route Start Last Admin Trade Name Freq PRN Reason Stop Dose Admin Acetaminophen 650 mg 09/03/20 15:36 09/10/20 08:34 Acetaminophen 325 Mg Tab PO 650 mg Q6H PRN Administration Fever > 101 Albuterol/Ipratropium 3 ml 09/03/20 18:30 09/11/20 06:40 Ipratropium/Albuterol Sulfate 3 Ml Neb NEB 3 ml BID-RT ALEXANDR Administration Amlodipine Besylate 5 mg 09/04/20 09:00 09/11/20 09:18 Amlodipine 5 Mg Tab PO 5 mg BID ALEXANDR Administration Budesonide 0.5 mg 09/03/20 18:30 09/11/20 06:40 Budesonide 0.5 Mg/2 Ml Neb NEB 0.5 mg BID-RT ALEXANDR Administration Clonidine 0.2 mg 09/08/20 09:00 09/11/20 14:12 Clonidine 0.2 Mg Tab PO 0.2 mg BID ALEXANDR Administration Diphenhydramine HCl 50 mg 08/31/20 09:57 09/10/20 21:28 Diphenhydramine 50 Mg/Ml Vial IVP 50 mg Q6H PRN Administration Itching or Insomnia Hydralazine HCl 100 mg 09/11/20 09:00 09/11/20 14:11 Hydralazine 25 Mg Tab PO 100 mg TID ALEXANDR Administration Nicardipine HCl 50 mg/ Sodium 250 mls @ 0 mls/hr 09/02/20 00:15 09/08/20 09:14 Chloride IVPB 250 mls INF ALEXANDR Administration Protocol Titrate Sodium Chloride 1,000 mls @ 60 mls/hr 09/08/20 10:54 09/10/20 13:04 Normal Saline 0.9% IV 1,000 mls .[id number] ALEXANDR Administration Nicotine 14 mg 09/10/20 13:00 09/11/20 14:12 Nicotine 14 Mg Patch TOP 14 mg Q24HR ALEXANDR Administration Nimodipine 60 mg 08/31/20 13:00 09/11/20 14:11 Nimodipine 30 Mg Cap PO 60 mg Q4HR ALEXANDR Administration Nitroglycerin 0.5 inch 09/05/20 11:18 09/10/20 23:25 Nitroglycerin 2% Ointment 1 Inch/1 Gm Packet TOP 0.5 inch Q8H PRN Administration sbp >140 Pantoprazole Sodium 40 mg 09/09/20 09:00 09/11/20 09:17 Pantoprazole 40 Mg Tab PO 40 mg DAILY ALEXANDR Administration Throat Lozenges 1 adiel 09/10/20 00:46 09/10/20 02:48 Cepastat Lozenges 1 Adiel PO 1 adiel Q2H PRN Administration Sore Throat - Exam General Appearance: awake alert Eye: anicteric sclera ENT: moist mucosa Neck: supple Heart: RRR Respiratory: CTAB Gastrointestinal: soft, non-tender Skin: no rashes Neurological - other findings: Left-sided weakness Psychiatric: normal affect Hosp A/P - Plan -Assessment (1) Subarachnoid hemorrhage Code(s): I60.9 - NONTRAUMATIC SUBARACHNOID HEMORRHAGE, UNSPECIFIED Status: Acute Plan: Managed conservatively (2) Left hemiplegia Code(s): G81.94 - HEMIPLEGIA, UNSPECIFIED AFFECTING LEFT NONDOMINANT SIDE Status: Acute Plan: PT/OT for mobilization (3) Hypertension Code(s): I10 - ESSENTIAL (PRIMARY) HYPERTENSION Status: Chronic Qualifiers: Hypertension type: essential hypertension Qualified Code(s): I10 - Essential (primary) hypertension (4) Sinus pause Code(s): I45.5 - OTHER SPECIFIED HEART BLOCK Status: Resolved - Plan PT/OT, social work administrator, out of bed/ambulate, DVT proph w/SCDs Hold Coreg, continue clonidine.
--- NOTE | 2020-09-11 16:34 | CT ---
CT head without contrast: Multiple axial tomograms obtained through the head without IV enhancement. INDICATIONS: Follow-up head injury COMPARISON: 09/07/2020 FINDINGS: Ventricles have normal size and position. There continues to be evidence of subarachnoid hemorrhage within the sulci of the right frontal lobe superiorly and extending into the parasylvian region. This continues to decrease when compared to the recent exam. There is lucency in the inferior right frontal lobe at site of previously noted pare nchymal hematoma. Continued decrease in the amount of blood product. Visualized sinuses and mastoids appear clear. Bony calvarium appears unremarkable. IMPRESSION: Continued decrease in the subarachnoid hemorrhage.
[2020-09-11] MEDS: Sodium Chloride 0.9% 1,000 ML IV SCH (20:31)
[2020-09-11] MEDS: Acetaminophen 325 MG TAB PO PRN (20:55)
[2020-09-12] MEDS: Sodium Chloride 0.9% 1,000 ML IV SCH ×2 (00:49→14:43)
[2020-09-12] MEDS: niMODipine 30 MG CAP PO SCH ×6 (00:53→19:58)
[2020-09-12 05:56] LABS: Anion Gap 11 mmol/L (10-20); BUN (Urea Nitrogen) 17 mg/dL (8.4-25.7); Calc. Creatinine Clearance 108 mL/min (70-130); Calcium 8.6 mg/dL (7.8-10.44); Carbon Dioxide 23 mmol/L (22-29); Chloride 102 mmol/L (98-107); Estimated GFR-MDRD Greater than 90; Glucose 99 mg/dL (70-105); Potassium 3.9 mmol/L (3.5-5.1); Sodium 132 mmol/L (136-145)
[2020-09-12] MEDS: Budesonide 0.5 MG/2 ML NEB NEB SCH ×2 (06:36→19:08)
[2020-09-12] MEDS: Amlodipine 5 MG TAB PO SCH ×2 (09:48→19:57)
[2020-09-12] MEDS: cloNIDine 0.2 MG TAB PO SCH ×2 (09:49→19:55)
[2020-09-12] MEDS: hydrALAZINE 25 MG TAB PO SCH ×3 (09:51→19:55)
--- NOTE | 2020-09-12 11:34 | EKG ---
Test Reason : Blood Pressure : / mmHG Vent. Rate : 152 BPM Atrial Rate : 153 BPM P-R Int : 000 ms QRS Dur : 082 ms QT Int : 316 ms P-R-T Axes : 000 266 078 degrees QTc Int : 502 ms Sinus tachycardia with occasional Premature ventricular complexes and Fusion complexes Right superior axis deviation Pulmonary disease pattern Nonspecific ST abnormality Abnormal ECG Confirmed by KHUSHBOO Sr, JASON ([id number]), graphic editor DEVENDRA MCDONOUGH ([id number]) on 09/12/2020 11:34:38 AM Referred By: Confirmed By:JASON CUELLO M.D.
--- NOTE | 2020-09-12 11:34 | EKG ---
Test Reason : AMS Blood Pressure : / mmHG Vent. Rate : 117 BPM Atrial Rate : 117 BPM P-R Int : 152 ms QRS Dur : 086 ms QT Int : 354 ms P-R-T Axes : 074 254 072 degrees QTc Int : 493 ms Sinus tachycardia Possible Left atrial enlargement Right superior axis deviation Pulmonary disease pattern Abnormal ECG Confirmed by JASON CUELLO M.D. ([id number]), graphics editor DEVENDRA MCDONOUGH ([id number]) on 09/12/2020 11:33:56 AM Referred By: Confirmed By:JASON CUELLO M.D.
[2020-09-12] MEDS: Nicotine 14 MG PATCH TOP SCH (12:04)
--- NOTE | 2020-09-12 12:32 | PDOC.HOSPP ---
- Subjective Encounter Date: 09/12/20 Encounter Time: 07:20 Subjective: Patient seen for follow-up regarding subarachnoid hemorrhage. He had a fall yesterday. CT scan of the brain showed improvement in the bleed. - Objective Vital Signs & Weight: Vital Signs (12 hours) Temp Pulse Resp BP BP Pulse Ox 09/12/20 11:28 97.4 F L 70 14 132/75 98 09/12/20 09:51 74 155/74 H 09/12/20 09:49 155/74 H 09/12/20 09:48 74 155/74 H 09/12/20 07:40 98.5 F 67 14 167/97 H 100 09/12/20 06:36 72 14 09/12/20 04:00 98.7 F 62 15 132/81 100 Weight Admit Weight 199 lb Weight 181 lb 8 oz Most Recent Monitor Data Heart Rate from ECG 67 NIBP 112/59 NIBP BP-Mean 76 Respiration from ECG 17 SpO2 95 I&O: 09/11/20 09/12/20 09/13/20 06:59 06:59 06:59 Intake Total 2112 58 Output Total 975 110 Balance 1137 -52 Result Diagrams: 09/05/20 03:22 09/12/20 04:52 Additional Labs: I reviewed patient's labs and MAR EKG Reviewed by me: Yes (Telemetry: NSR) Hospitalist ROS - Review of Systems Cardiovascular: denies: chest pain, palpitations, orthopnea, paroxysmal noc. dyspnea, edema, light headedness Gastrointestinal: denies: nausea, vomiting, abdominal pain, diarrhea, constipation, melena, hematochezia Neurological: reports: weakness - Medication Medications: Active Medications Generic Name Dose Route Start Last Admin Trade Name Freq PRN Reason Stop Dose Admin Acetaminophen 650 mg 09/03/20 15:36 09/11/20 20:55 Acetaminophen 325 Mg Tab PO 650 mg Q6H PRN Administration Fever > 101 Albuterol/Ipratropium 3 ml 09/03/20 18:30 09/12/20 06:36 Ipratropium/Albuterol Sulfate 3 Ml Neb NEB 3 ml BID-RT ALEXANDR Administration Amlodipine Besylate 5 mg 09/04/20 09:00 09/12/20 09:48 Amlodipine 5 Mg Tab PO 5 mg BID ALEXANDR Administration Budesonide 0.5 mg 09/03/20 18:30 09/12/20 06:36 Budesonide 0.5 Mg/2 Ml Neb NEB 0.5 mg BID-RT ALEXANDR Administration Clonidine 0.2 mg 09/08/20 09:00 09/12/20 09:49 Clonidine 0.2 Mg Tab PO 0.2 mg BID ALEXANDR Administration Diphenhydramine HCl 50 mg 08/31/20 09:57 09/10/20 21:28 Diphenhydramine 50 Mg/Ml Vial IVP 50 mg Q6H PRN Administration Itching or Insomnia Hydralazine HCl 100 mg 09/11/20 09:00 09/12/20 09:51 Hydralazine 25 Mg Tab PO 100 mg TID ALEXANDR Administration Nicardipine HCl 50 mg/ Sodium 250 mls @ 0 mls/hr 09/02/20 00:15 09/08/20 09:14 Chloride IVPB 250 mls INF ALEXANDR Administration Protocol Titrate Sodium Chloride 1,000 mls @ 60 mls/hr 09/08/20 10:54 09/12/20 00:49 Normal Saline 0.9% IV Not Given .[id number] ALEXANDR Nicotine 14 mg 09/10/20 13:00 09/12/20 12:04 Nicotine 14 Mg Patch TOP 14 mg Q24HR ALEXANDR Administration Nimodipine 60 mg 08/31/20 13:00 09/12/20 12:04 Nimodipine 30 Mg Cap PO 60 mg Q4HR ALEXANDR Administration Nitroglycerin 0.5 inch 09/05/20 11:18 09/10/20 23:25 Nitroglycerin 2% Ointment 1 Inch/1 Gm Packet TOP 0.5 inch Q8H PRN Administration sbp >140 Pantoprazole Sodium 40 mg 09/09/20 09:00 09/12/20 09:53 Pantoprazole 40 Mg Tab PO 40 mg DAILY ALEXANDR Administration Throat Lozenges 1 adiel 09/10/20 00:46 09/10/20 02:48 Cepastat Lozenges 1 Adiel PO 1 adiel Q2H PRN Administration Sore Throat - Exam General Appearance: awake alert Neck: symmetric Heart: RRR Respiratory: CTAB Gastrointestinal: soft, non-tender Neurological - other findings: left sided weakness Psychiatric: normal affect Hosp A/P - Plan -Assessment (1) Subarachnoid hemorrhage Code(s): I60.9 - NONTRAUMATIC SUBARACHNOID HEMORRHAGE, UNSPECIFIED Status: Acu te Plan: Managed conservatively (2) Left hemiplegia Code(s): G81.94 - HEMIPLEGIA, UNSPECIFIED AFFECTING LEFT NONDOMINANT SIDE Status: Acute Plan: PT/OT for mobilization (3) Hypertension Code(s): I10 - ESSENTIAL (PRIMARY) HYPERTENSION Status: Chronic Qualifiers: Hypertension type: essential hypertension Qualified Code(s): I10 - Essential (primary) hypertension (4) Sinus pause Code(s): I45.5 - OTHER SPECIFIED HEART BLOCK Status: Resolved - Plan PT/OT Awaiting Inpt Rehab
[2020-09-13] MEDS: niMODipine 30 MG CAP PO SCH ×6 (01:11→20:43)
[2020-09-13] MEDS: Acetaminophen 325 MG TAB PO PRN ×3 (02:29→14:59)
[2020-09-13] MEDS: diphenhydrAMINE 50 MG/ML VIAL IVP PRN ×2 (02:30→20:43)
[2020-09-13 05:36] LABS: Anion Gap 13 mmol/L (10-20); BUN (Urea Nitrogen) 16 mg/dL (8.4-25.7); Calc. Creatinine Clearance 104 mL/min (70-130); Calcium 8.7 mg/dL (7.8-10.44); Carbon Dioxide 22 mmol/L (22-29); Chloride 102 mmol/L (98-107); Estimated GFR-MDRD Greater than 90; Glucose 107 mg/dL (70-105); Potassium 3.8 mmol/L (3.5-5.1); Sodium 133 mmol/L (136-145)
[2020-09-13] MEDS: Budesonide 0.5 MG/2 ML NEB NEB SCH ×2 (06:34→19:46)
[2020-09-13] MEDS: Sodium Chloride 0.9% 1,000 ML IV SCH (06:38)
[2020-09-13] MEDS: Amlodipine 5 MG TAB PO SCH ×2 (08:49→20:43)
[2020-09-13] MEDS: hydrALAZINE 25 MG TAB PO SCH ×3 (08:49→20:44)
[2020-09-13] MEDS: cloNIDine 0.2 MG TAB PO SCH ×2 (08:50→20:43)
--- NOTE | 2020-09-13 11:08 | PDOC.HOSPP ---
- Subjective Encounter Date: 09/13/20 Encounter Time: 07:20 Subjective: Patient seen in follow-up for subarachnoid bleed. He denies any new complaints. - Objective Vital Signs & Weight: Vital Signs (12 hours) Temp Pulse Resp BP BP Pulse Ox 09/13/20 08:48 98.7 F 78 16 155/84 H 100 09/13/20 06:34 71 20 09/13/20 04:00 96.8 F L 65 18 147/84 H 100 09/13/20 00:00 98.9 F 69 18 150/82 H 98 Weight Admit Weight 199 lb Weight 177 lb 9.6 oz Most Recent Monitor Data Heart Rate from ECG 67 NIBP 112/59 NIBP BP-Mean 76 Respiration from ECG 17 SpO2 95 I&O: 09/12/20 09/13/20 09/14/20 06:59 06:59 06:59 Intake Total 58 720 Output Total 110 250 Balance -52 470 Result Diagrams: 09/05/20 03:22 09/13/20 04:47 Additional Labs: I reviewed patient's labs and MAR Hospitalist ROS - Review of Systems Musculoskeletal: denies: neck pain, shoulder pain, arm pain, back pain, hand pain, leg pain Skin: denies: rash, lesions, betzaida, bruising Neurological: reports: weakness - Medication Medications: Active Medications Generic Name Dose Route Start Last Admin Trade Name Freq PRN Reason Stop Dose Admin Acetaminophen 650 mg 09/03/20 15:36 09/13/20 08:50 Acetaminophen 325 Mg Tab PO 650 mg Q6H PRN Administration Fever > 101 Albuterol/Ipratropium 3 ml 09/03/20 18:30 09/13/20 06:34 Ipratropium/Albuterol Sulfate 3 Ml Neb NEB 3 ml BID-RT ALEXANDR Administration Amlodipine Besylate 5 mg 09/04/20 09:00 09/13/20 08:49 Amlodipine 5 Mg Tab PO 5 mg BID ALEXANDR Administration Budesonide 0.5 mg 09/03/20 18:30 09/13/20 06:34 Budesonide 0.5 Mg/2 Ml Neb NEB 0.5 mg BID-RT ALEXANDR Administration Clonidine 0.2 mg 09/08/20 09:00 09/13/20 08:50 Clonidine 0.2 Mg Tab PO 0.2 mg BID ALEXANDR Administration Diphenhydramine HCl 50 mg 08/31/20 09:57 09/13/20 02:30 Diphenhydramine 50 Mg/Ml Vial IVP 50 mg Q6H PRN Administration Itching or Insomnia Hydralazine HCl 100 mg 09/11/20 09:00 09/13/20 08:49 Hydralazine 25 Mg Tab PO 100 mg TID ALEXANDR Administration Nicardipine HCl 50 mg/ Sodium 250 mls @ 0 mls/hr 09/02/20 00:15 09/08/20 09:14 Chloride IVPB 250 mls INF ALEXANDR Administration Protocol Titrate Sodium Chloride 1,000 mls @ 60 mls/hr 09/08/20 10:54 09/13/20 06:38 Normal Saline 0.9% IV 1,000 mls .[id number] ALEXANDR Administration Nicotine 14 mg 09/10/20 13:00 09/12/20 12:04 Nicotine 14 Mg Patch TOP 14 mg Q24HR ALEXANDR Administration Nimodipine 60 mg 08/31/20 13:00 09/13/20 08:49 Nimodipine 30 Mg Cap PO 60 mg Q4HR ALEXANDR Administration Nitroglycerin 0.5 inch 09/05/20 11:18 09/10/20 23:25 Nitroglycerin 2% Ointment 1 Inch/1 Gm Packet TOP 0.5 inch Q8H PRN Administration sbp >140 Pantoprazole Sodium 40 mg 09/09/20 09:00 09/13/20 08:49 Pantoprazole 40 Mg Tab PO 40 mg DAILY ALEXANDR Administration Throat Lozenges 1 adiel 09/10/20 00:46 09/10/20 02:48 Cepastat Lozenges 1 Adiel PO 1 adiel Q2H PRN Administration Sore Throat - Exam General Appearance: awake alert Eye: anicteric sclera ENT: moist mucosa Heart: RRR, no rubs Respiratory: CTAB, normal chest expansion Gastrointestinal: soft Extremities: no cyanosis Skin: no rashes Neurological - other findings: Left upper and lower extremity weakness Musculoskeletal: no muscle wasting Psychiatric: normal affect Hosp A/P - Plan -Assessment (1) Subarachnoid hemorrhage Code(s): I60.9 - NONTRAUMATIC SUBARACHNOID HEMORRHAGE, UNSPECIFIED Status: Acute Plan: Managed conservatively (2) Left hemiplegia Code(s): G81.94 - HEMIPLEGIA, UNSPECIFIED AFFECTING LEFT NONDOMINANT SIDE Status: Acute Plan: PT/OT for mobilization (3) Hypertension Code(s): I10 - ESSENTIAL (PRIMARY) HYPERTENSION Status: Chronic Qualifiers: Hypertension type: essential hypertension Qualified Code(s): I10 - Essential (primary) hypertension (4) Sinus pause Code(s): I45.5 - OTHER SPECIFIED HEART BLOCK Status: Resolved - Plan Patient participating in rehab activities. Currently awaiting inpatient rehab bed. Sinus pause resolved after discontinuing carvedilol.
[2020-09-13] MEDS: Nicotine 14 MG PATCH TOP SCH (13:19)
[2020-09-14] MEDS: Sodium Chloride 0.9% 1,000 ML IV SCH ×2 (01:18→18:02)
[2020-09-14] MEDS: Acetaminophen 325 MG TAB PO PRN ×2 (01:19→23:53)
[2020-09-14] MEDS: niMODipine 30 MG CAP PO SCH ×6 (01:19→21:10)
[2020-09-14 05:37] LABS: Anion Gap 13 mmol/L (10-20); BUN (Urea Nitrogen) 12 mg/dL (8.4-25.7); Calc. Creatinine Clearance 110 mL/min (70-130); Calcium 8.7 mg/dL (7.8-10.44); Carbon Dioxide 22 mmol/L (22-29); Chloride 102 mmol/L (98-107); Estimated GFR-MDRD Greater than 90; Glucose 98 mg/dL (70-105); Potassium 3.9 mmol/L (3.5-5.1); Sodium 133 mmol/L (136-145)
[2020-09-14] MEDS: Budesonide 0.5 MG/2 ML NEB NEB SCH ×2 (06:47→18:41)
[2020-09-14] MEDS: Amlodipine 5 MG TAB PO SCH ×2 (08:40→21:11)
[2020-09-14] MEDS: hydrALAZINE 25 MG TAB PO SCH ×3 (08:40→21:11)
[2020-09-14] MEDS: cloNIDine 0.2 MG TAB PO SCH ×2 (08:40→21:11)
--- NOTE | 2020-09-14 10:21 | PDOC.HOSPP ---
- Subjective Encounter Date: 09/14/20 Encounter Time: 09:15 Subjective: Patient was seen and examined for follow-up of subarachnoid hemorrhage. Patient stated he slept well and has no new complaints. - Objective Vital Signs & Weight: Vital Signs (12 hours) Temp Pulse Resp BP BP Pulse Ox 09/14/20 10:12 70 126/64 09/14/20 09:52 72 153/70 H 09/14/20 08:59 85 182/88 H 09/14/20 08:08 98.4 F 78 20 191/91 H 98 09/14/20 04:38 99 F 78 16 162/86 H 98 09/14/20 01:13 99.5 F 85 18 157/93 H 99 Weight Admit Weight 199 lb Weight 178 lb 1.6 oz Most Recent Monitor Data Heart Rate from ECG 67 NIBP 112/59 NIBP BP-Mean 76 Respiration from ECG 17 SpO2 95 I&O: 09/13/20 09/14/20 09/15/20 06:59 06:59 06:59 Intake Total 720 1620 Output Total 250 950 Balance 470 670 Result Diagrams: 09/05/20 03:22 09/14/20 04:23 Hospitalist ROS - Review of Systems Constitutional: denies: malaise Gastrointestinal: denies: nausea, vomiting, diarrhea, constipation, melena, hematochezia Genitourinary: denies: dysuria, hematuria Neurological: reports: weakness (weakness of left side) - Medication Medications: Active Medications Generic Name Dose Route Start Last Admin Trade Name Freq PRN Reason Stop Dose Admin Acetaminophen 650 mg 09/03/20 15:36 09/14/20 01:19 Acetaminophen 325 Mg Tab PO 650 mg Q6H PRN Administration Fever > 101 Albuterol/Ipratropium 3 ml 09/03/20 18:30 09/14/20 06:50 Ipratropium/Albuterol Sulfate 3 Ml Neb NEB 3 ml BID-RT ALEXANDR Administration Amlodipine Besylate 5 mg 09/04/20 09:00 09/14/20 08:40 Amlodipine 5 Mg Tab PO 5 mg BID ALEXANDR Administration Budesonide 0.5 mg 09/03/20 18:30 09/14/20 06:47 Budesonide 0.5 Mg/2 Ml Neb NEB 0.5 mg BID-RT ALEXANDR Administration Clonidine 0.2 mg 09/08/20 09:00 09/14/20 08:40 Clonidine 0.2 Mg Tab PO 0.2 mg BID ALEXANDR Administration Diphenhydramine HCl 50 mg 08/31/20 09:57 09/13/20 20:43 Diphenhydramine 50 Mg/Ml Vial IVP 50 mg Q6H PRN Administration Itching or Insomnia Hydralazine HCl 100 mg 09/11/20 09:00 09/14/20 08:40 Hydralazine 25 Mg Tab PO 100 mg TID ALEXANDR Administration Nicardipine HCl 50 mg/ Sodium 250 mls @ 0 mls/hr 09/02/20 00:15 09/08/20 09:14 Chloride IVPB 250 mls INF ALEXANDR Administration Protocol Titrate Sodium Chloride 1,000 mls @ 60 mls/hr 09/08/20 10:54 09/14/20 01:18 Normal Saline 0.9% IV 1,000 mls .[id number] ALEXANDR Administration Nicotine 14 mg 09/10/20 13:00 09/13/20 13:19 Nicotine 14 Mg Patch TOP 14 mg Q24HR ALEXANDR Administration Nimodipine 60 mg 08/31/20 13:00 09/14/20 08:40 Nimodipine 30 Mg Cap PO 60 mg Q4HR ALEXANDR Administration Nitroglycerin 0.5 inch 09/05/20 11:18 09/10/20 23:25 Nitroglycerin 2% Ointment 1 Inch/1 Gm Packet TOP 0.5 inch Q8H PRN Administration sbp >140 Pantoprazole Sodium 40 mg 09/09/20 09:00 09/14/20 08:41 Pantoprazole 40 Mg Tab PO 40 mg DAILY ALEXANDR Administration Throat Lozenges 1 adiel 09/10/20 00:46 09/10/20 02:48 Cepastat Lozenges 1 Adiel PO 1 adiel Q2H PRN Administration Sore Throat - Exam General Appearance: NAD, awake alert ENT: normocephalic atraumatic Heart: RRR, no murmur Respiratory: CTAB, no wheezes Gastrointestinal: non-tender, normal bowel sounds Neurological - other findings: Left UE and LE weakness Musculoskeletal: no muscle wasting Psychiatric: normal affect Hosp A/P - Plan -Assessment (1) Subarachnoid hemorrhage Code(s): I60.9 - NONTRAUMATIC SUBARACHNOID HEMORRHAGE, UNSPECIFIED Status: Acute Plan: Managed conservatively (2) Left hemiplegia Code(s): G81.94 - HEMIPLEGIA, UNSPECIFIED AFFECTING LEFT NONDOMINANT SIDE Status: Acute Plan: PT/OT for mobilization (3) Hypertension Code(s): I10 - ESSENTIAL (PRIMARY) HYPERTENSION Status: Chronic Qualifiers: Hypertension type: essential hypertension Qualified Code(s): I10 - Essential (primary) hypertension (4) Sinus pause Code(s): I45.5 - OTHER SPECIFIED HEART BLOCK Status: Resolved - Plan Patient continue participation in rehab activities. Pt reportedly declined for Rehab bed, plan will be to go home with family support.
[2020-09-14] MEDS: Nicotine 14 MG PATCH TOP SCH (13:05)
[2020-09-15] MEDS: niMODipine 30 MG CAP PO SCH ×6 (02:40→21:20)
[2020-09-15 05:28] LABS: Anion Gap 14 mmol/L (10-20); BUN (Urea Nitrogen) 13 mg/dL (8.4-25.7); Calc. Creatinine Clearance 110 mL/min (70-130); Calcium 9.2 mg/dL (7.8-10.44); Carbon Dioxide 21 mmol/L (22-29); Chloride 102 mmol/L (98-107); Estimated GFR-MDRD Greater than 90; Glucose 104 mg/dL (70-105); Potassium 4.3 mmol/L (3.5-5.1); Sodium 133 mmol/L (136-145)
[2020-09-15] MEDS: Budesonide 0.5 MG/2 ML NEB NEB SCH ×2 (06:47→18:15)
[2020-09-15] MEDS: hydrALAZINE 25 MG TAB PO SCH ×3 (08:52→21:21)
[2020-09-15] MEDS: Amlodipine 5 MG TAB PO SCH ×2 (08:52→21:21)
[2020-09-15] MEDS: cloNIDine 0.2 MG TAB PO SCH ×2 (08:52→21:21)
[2020-09-15] MEDS: Sodium Chloride 0.9% 1,000 ML IV SCH (08:59)
[2020-09-15] MEDS: Nicotine 14 MG PATCH TOP SCH (12:55)
[2020-09-15] MEDS: Acetaminophen 325 MG TAB PO PRN (13:41)
--- NOTE | 2020-09-15 13:57 | PDOC.HOSPP ---
- Subjective Encounter Date: 09/15/20 Encounter Time: 12:00 Subjective: Patient seen for follow-up regarding intracranial bleed. He denies any new symptoms. - Objective Vital Signs & Weight: Vital Signs (12 hours) Temp Pulse Resp BP BP Pulse Ox 09/15/20 11:20 98.5 F 75 16 147/80 H 99 09/15/20 08:59 97 09/15/20 08:52 84 09/15/20 07:15 98.4 F 84 20 157/65 H 97 09/15/20 06:48 72 16 99 09/15/20 06:47 72 16 99 09/15/20 05:00 98.2 F 71 16 163/86 H 98 09/15/20 02:42 151/77 H Weight Admit Weight 199 lb Weight 178 lb 8 oz Most Recent Monitor Data Heart Rate from ECG 67 NIBP 112/59 NIBP BP-Mean 76 Respiration from ECG 17 SpO2 95 I&O: 09/14/20 09/15/20 09/16/20 06:59 06:59 06:59 Intake Total 1620 2896 300 Output Total 950 1875 625 Balance 670 1021 -325 Result Diagrams: 09/05/20 03:22 09/15/20 04:40 Additional Labs: I reviewed patient's labs and MAR EKG Reviewed by me: Yes (Normal sinus rhythm on telemetry) Hospitalist ROS - Review of Systems Constitutional: reports: weakness. denies: fever, chills, sweats, malaise Skin: denies: rash, lesions, betzaida, bruising Neurological: reports: weakness - Medication Medications: Active Medications Generic Name Dose Route Start Last Admin Trade Name Wendy PRN Reason Stop Dose Admin Acetaminophen 650 mg 09/03/20 15:36 09/15/20 13:41 Acetaminophen 325 Mg Tab PO 650 mg Q6H PRN Administration Fever > 101 Albuterol/Ipratropium 3 ml 09/03/20 18:30 09/15/20 06:48 Ipratropium/Albuterol Sulfate 3 Ml Neb NEB 3 ml BID-RT ALEXANDR Administration Amlodipine Besylate 5 mg 09/04/20 09:00 09/15/20 08:52 Amlodipine 5 Mg Tab PO 5 mg BID ALEXANDR Administration Budesonide 0.5 mg 09/03/20 18:30 09/15/20 06:47 Budesonide 0.5 Mg/2 Ml Neb NEB 0.5 mg BID-RT ALEXANDR Administration Clonidine 0.2 mg 09/08/20 09:00 09/15/20 08:52 Clonidine 0.2 Mg Tab PO 0.2 mg BID ALEXANDR Administration Diphenhydramine HCl 50 mg 08/31/20 09:57 09/13/20 20:43 Diphenhydramine 50 Mg/Ml Vial IVP 50 mg Q6H PRN Administration Itching or Insomnia Hydralazine HCl 100 mg 09/11/20 09:00 09/15/20 08:52 Hydralazine 25 Mg Tab PO 100 mg TID ALEXANDR Administration Nicardipine HCl 50 mg/ Sodium 250 mls @ 0 mls/hr 09/02/20 00:15 09/08/20 09:14 Chloride IVPB 250 mls INF ALEXANDR Administration Protocol Titrate Sodium Chloride 1,000 mls @ 60 mls/hr 09/08/20 10:54 09/15/20 08:59 Normal Saline 0.9% IV 1,000 mls .[id number] ALEXANDR Administration Nicotine 14 mg 09/10/20 13:00 09/15/20 12:55 Nicotine 14 Mg Patch TOP 14 mg Q24HR ALEXANDR Administration Nimodipine 60 mg 08/31/20 13:00 09/15/20 12:55 Nimodipine 30 Mg Cap PO 60 mg Q4HR ALEXANDR Administration Nitroglycerin 0.5 inch 09/05/20 11:18 09/10/20 23:25 Nitroglycerin 2% Ointment 1 Inch/1 Gm Packet TOP 0.5 inch Q8H PRN Administration sbp >140 Pantoprazole Sodium 40 mg 09/09/20 09:00 09/15/20 08:52 Pantoprazole 40 Mg Tab PO 40 mg DAILY ALEXANDR Administration Throat Lozenges 1 adiel 09/10/20 00:46 09/10/20 02:48 Cepastat Lozenges 1 Adiel PO 1 adiel Q2H PRN Administration Sore Throat - Exam General Appearance: awake alert Eye: anicteric sclera ENT: moist mucosa Neck: supple Heart: RRR Respiratory: CTAB Gastrointestinal: soft, non-tender Extremities: no cyanosis Skin: no rashes Psychiatric: normal affect Hosp A/P - Plan -Assessment (1) Subarachnoid hemorrhage Code(s): I60.9 - NONTRAUMATIC SUBARACHNOID HEMORRHAGE, UNSPECIFIED Status: Acute Plan: Managed conservatively (2) Left hemiplegia Code(s): G81.94 - HEMIPLEGIA, UNSPECIFIED AFFECTING LEFT NONDOMINANT SIDE Status: Acute Plan: PT/OT for mobilization (3) Hypertension Code(s): I10 - ESSENTIAL (PRIMARY) HYPERTENSION Status: Chronic Qualifiers: Hypertension type: essential hypertension Qualified Code(s): I10 - Essenti al (primary) hypertension (4) Sinus pause Code(s): I45.5 - OTHER SPECIFIED HEART BLOCK Status: Resolved - Plan Continue rehab activities. Discharged home with family support, case management involved in discharge planning.
[2020-09-16] MEDS: Acetaminophen 325 MG TAB PO PRN ×4 (00:44→20:43)
[2020-09-16] MEDS: niMODipine 30 MG CAP PO SCH ×6 (00:44→20:18)
[2020-09-16] MEDS: Sodium Chloride 0.9% 1,000 ML IV SCH (02:24)
[2020-09-16 05:01] LABS: Anion Gap 15 mmol/L (10-20); BUN (Urea Nitrogen) 14 mg/dL (8.4-25.7); Calc. Creatinine Clearance 111 mL/min (70-130); Calcium 9.1 mg/dL (7.8-10.44); Carbon Dioxide 20 mmol/L (22-29); Chloride 102 mmol/L (98-107); Estimated GFR-MDRD Greater than 90; Glucose 114 mg/dL (70-105); Potassium 5.2 mmol/L (3.5-5.1); Sodium 132 mmol/L (136-145)
[2020-09-16] MEDS: Budesonide 0.5 MG/2 ML NEB NEB SCH ×2 (07:38→18:50)
[2020-09-16] MEDS: cloNIDine 0.2 MG TAB PO SCH ×2 (09:08→20:17)
[2020-09-16] MEDS: Amlodipine 5 MG TAB PO SCH ×2 (09:08→20:17)
[2020-09-16] MEDS: hydrALAZINE 25 MG TAB PO SCH ×3 (09:09→20:17)
[2020-09-16] MEDS: Nicotine 14 MG PATCH TOP SCH (13:28)
--- NOTE | 2020-09-16 15:22 | PDOC.HOSPP ---
- Subjective Encounter Date: 09/16/20 Encounter Time: 15:20 Subjective: Patient seen for follow-up for intracranial bleed. He denies any new complaints. Reports weakness is better. - Objective Vital Signs & Weight: Vital Signs (12 hours) Temp Pulse Pulse Pulse Resp BP BP 09/16/20 14:37 77 165/72 H 09/16/20 11:51 98.3 F 77 16 09/16/20 11:17 84 77 155/74 H 09/16/20 09:44 09/16/20 09:09 79 189/85 H 09/16/20 09:08 79 189/85 H 09/16/20 07:48 98.1 F 78 18 09/16/20 04:40 98.4 F 70 16 BP BP BP Pulse Ox 09/16/20 14:37 09/16/20 11:51 150/76 H 99 09/16/20 11:17 150/76 H 09/16/20 09:44 143/66 H 09/16/20 09:09 09/16/20 09:08 09/16/20 07:48 156/82 H 99 09/16/20 04:40 164/82 H 98 Weight Admit Weight 199 lb Weight 177 lb 14.4 oz Most Recent Monitor Data Heart Rate from ECG 67 NIBP 112/59 NIBP BP-Mean 76 Respiration from ECG 17 SpO2 95 I&O: 09/15/20 09/16/20 09/17/20 06:59 06:59 06:59 Intake Total 2896 1857 Output Total 1875 1575 Balance 1021 282 Result Diagrams: 09/05/20 03:22 09/16/20 04:16 Additional Labs: I reviewed patient's labs and MAR EKG Reviewed by me: Yes (Normal sinus rhythm on telemetry) Hospitalist ROS - Review of Systems Constitutional: denies: fever, chills, sweats, weakness, malaise Genitourinary: denies: dysuria, frequency, incontinence, hematuria Neurological: reports: weakness. denies: numbness, incoordination, change in speech, confusion, seizures - Medication Medications: Active Medications Generic Name Dose Route Start Last Admin Trade Name Freq PRN Reason Stop Dose Admin Acetaminophen 650 mg 09/03/20 15:36 09/16/20 14:36 Acetaminophen 325 Mg Tab PO 650 mg Q6H PRN Administration Fever > 101 Albuterol/Ipratropium 3 ml 09/03/20 18:30 09/16/20 07:40 Ipratropium/Albuterol Sulfate 3 Ml Neb NEB 3 ml BID-RT ALEXANDR Administration Amlodipine Besylate 5 mg 09/04/20 09:00 09/16/20 09:08 Amlodipine 5 Mg Tab PO 5 mg BID ALEXANDR Administration Budesonide 0.5 mg 09/03/20 18:30 09/16/20 07:38 Budesonide 0.5 Mg/2 Ml Neb NEB 0.5 mg BID-RT ALEXANDR Administration Clonidine 0.2 mg 09/08/20 09:00 09/16/20 09:08 Clonidine 0.2 Mg Tab PO 0.2 mg BID ALEXANDR Administration Diphenhydramine HCl 50 mg 08/31/20 09:57 09/13/20 20:43 Diphenhydramine 50 Mg/Ml Vial IVP 50 mg Q6H PRN Administration Itching or Insomnia Hydralazine HCl 100 mg 09/11/20 09:00 09/16/20 14:37 Hydralazine 25 Mg Tab PO 100 mg TID ALEXANDR Administration Nicardipine HCl 50 mg/ Sodium 250 mls @ 0 mls/hr 09/02/20 00:15 09/08/20 09:14 Chloride IVPB 250 mls INF ALEXANDR Administration Protocol Titrate Nicotine 14 mg 09/10/20 13:00 09/16/20 13:28 Nicotine 14 Mg Patch TOP 14 mg Q24HR ALEXANDR Administration Nimodipine 60 mg 08/31/20 13:00 09/16/20 13:28 Nimodipine 30 Mg Cap PO 60 mg Q4HR ALEXANDR Administration Nitroglycerin 0.5 inch 09/05/20 11:18 09/10/20 23:25 Nitroglycerin 2% Ointment 1 Inch/1 Gm Packet TOP 0.5 inch Q8H PRN Administration sbp >140 Pantoprazole Sodium 40 mg 09/09/20 09:00 09/16/20 09:05 Pantoprazole 40 Mg Tab PO 40 mg DAILY ALEXANDR Administration Throat Lozenges 1 adiel 09/10/20 00:46 09/10/20 02:48 Cepastat Lozenges 1 Adiel PO 1 adiel Q2H PRN Administration Sore Throat - Exam General Appearance: awake alert Eye: anicteric sclera ENT: moist mucosa Neck: supple Heart: RRR Respiratory: CTAB Gastrointestinal: soft, non-tender Skin: no rashes Psychiatric: normal affect, normal behavior Hosp A/P - Plan -Assessment (1) Subarachnoid hemorrhage Code(s): I60.9 - NONTRAUMATIC SUBARACHNOID HEMORRHAGE, UNSPECIFIED Status: Acute Plan: Managed conservatively, clinically improving (2) Left hemiplegia Code(s): G81.94 - HEMIPLEGIA, UNSPECIFIED AFFECTING LEFT NONDOMINANT SIDE Status: Acute Plan: Mobilize patient (3) Hypertension Code(s): I10 - ESSENTIAL (PRIMARY) HYPERTENSION Status: Chronic Qualifiers: Hypertension type: essential hypertension Qualified Code(s): I10 - Essential (primary) hypertension (4) Sinus pause Code(s): I45.5 - OTHER SPECIFIED HEART BLOCK Status: Resolved - Plan Continue rehab activities. Discharge home with family support.
[2020-09-16] MEDS: Nitroglycerin 2% Ointment 1 INCH/1 GM Packet TOP PRN (19:40)
[2020-09-17] MEDS: niMODipine 30 MG CAP PO SCH ×6 (00:44→21:08)
[2020-09-17] MEDS: Nitroglycerin 2% Ointment 1 INCH/1 GM Packet TOP PRN (04:05)
[2020-09-17 05:33] LABS: Anion Gap 17 mmol/L (10-20); BUN (Urea Nitrogen) 13 mg/dL (8.4-25.7); Calc. Creatinine Clearance 104 mL/min (70-130); Calcium 9.3 mg/dL (7.8-10.44); Carbon Dioxide 20 mmol/L (22-29); Chloride 100 mmol/L (98-107); Estimated GFR-MDRD Greater than 90; Glucose 114 mg/dL (70-105); Potassium 3.7 mmol/L (3.5-5.1); Sodium 133 mmol/L (136-145)
[2020-09-17] MEDS: Budesonide 0.5 MG/2 ML NEB NEB SCH ×2 (06:52→18:27)
[2020-09-17] MEDS: Acetaminophen 325 MG TAB PO PRN (09:11)
[2020-09-17] MEDS: hydrALAZINE 25 MG TAB PO SCH ×3 (09:12→21:07)
[2020-09-17] MEDS: cloNIDine 0.2 MG TAB PO SCH ×2 (09:12→21:07)
[2020-09-17] MEDS: Amlodipine 5 MG TAB PO SCH ×2 (09:13→21:08)
--- NOTE | 2020-09-17 10:53 | RAD ---
EXAM: 2 views of the left shoulder HISTORY: Shoulder pain COMPARISON: None FINDINGS: There is no evidence of acute fracture or dislocation. Mild acromioclavicular degenerative changes are present. No soft tissue swelling is seen. The visualized thorax is unremarkable. IMPRESSION: No evidence of acute osseous abnormality.
--- NOTE | 2020-09-17 12:37 | PDOC.HOSPP ---
- Subjective Encounter Date: 09/17/20 Encounter Time: 07:00 Subjective: Patient seen for follow-up regarding intracranial bleed. Complains of left shoulder pain. - Objective Vital Signs & Weight: Vital Signs (12 hours) Temp Pulse Resp BP BP BP Pulse Ox 09/17/20 11:00 98.7 F 83 19 141/69 H 100 09/17/20 09:13 95 188/81 H 09/17/20 09:12 95 188/81 H 09/17/20 07:48 99.5 F 85 20 168/82 H 99 09/17/20 07:43 97.8 F 58 L 18 143/67 H 98 09/17/20 04:39 158/65 H 09/17/20 04:00 99.4 F 84 16 208/89 H 98 Weight Admit Weight 199 lb Weight 171 lb 12.8 oz Most Recent Monitor Data Heart Rate from ECG 67 NIBP 112/59 NIBP BP-Mean 76 Respiration from ECG 17 SpO2 95 I&O: 09/16/20 09/17/20 09/18/20 06:59 06:59 06:59 Intake Total 1857 1110 Output Total 1575 100 Balance 282 1010 Result Diagrams: 09/05/20 03:22 09/17/20 04:46 Additional Labs: I reviewed patient's labs and MAR EKG Reviewed by me: Yes (NSR on telemetry) Hospitalist ROS - Review of Systems Gastrointestinal: denies: nausea, vomiting, abdominal pain, diarrhea, constipation, melena, hematochezia Musculoskeletal: reports: shoulder pain Skin: reports: other. denies: rash, lesions, betzaida, bruising Neurological: reports: weakness - Medication Medications: Active Medications Generic Name Dose Route Start Last Admin Trade Name Freq PRN Reason Stop Dose Admin Acetaminophen 650 mg 09/03/20 15:36 09/17/20 09:11 Acetaminophen 325 Mg Tab PO 650 mg Q6H PRN Administration Fever > 101 Albuterol/Ipratropium 3 ml 09/03/20 18:30 09/17/20 06:52 Ipratropium/Albuterol Sulfate 3 Ml Neb NEB 3 ml BID-RT ALEXANDR Administration Amlodipine Besylate 5 mg 09/04/20 09:00 09/17/20 09:13 Amlodipine 5 Mg Tab PO 5 mg BID ALEXANDR Administration Budesonide 0.5 mg 09/03/20 18:30 09/17/20 06:52 Budesonide 0.5 Mg/2 Ml Neb NEB 0.5 mg BID-RT ALEXANDR Administration Clonidine 0.2 mg 09/08/20 09:00 09/17/20 09:12 Clonidine 0.2 Mg Tab PO 0.2 mg BID ALEXANDR Administration Diphenhydramine HCl 50 mg 08/31/20 09:57 09/13/20 20:43 Diphenhydramine 50 Mg/Ml Vial IVP 50 mg Q6H PRN Administration Itching or Insomnia Hydralazine HCl 100 mg 09/11/20 09:00 09/17/20 09:12 Hydralazine 25 Mg Tab PO 100 mg TID ALEXANDR Administration Nicardipine HCl 50 mg/ Sodium 250 mls @ 0 mls/hr 09/02/20 00:15 09/08/20 09:14 Chloride IVPB 250 mls INF ALEXANDR Administration Protocol Titrate Nicotine 14 mg 09/10/20 13:00 09/16/20 13:28 Nicotine 14 Mg Patch TOP 14 mg Q24HR ALEXANDR Administration Nimodipine 60 mg 08/31/20 13:00 09/17/20 09:13 Nimodipine 30 Mg Cap PO 60 mg Q4HR ALEXANDR Administration Nitroglycerin 0.5 inch 09/05/20 11:18 09/17/20 04:05 Nitroglycerin 2% Ointment 1 Inch/1 Gm Packet TOP 0.5 inch Q8H PRN Administration sbp >140 Pantoprazole Sodium 40 mg 09/09/20 09:00 09/17/20 09:11 Pantoprazole 40 Mg Tab PO 40 mg DAILY ALEXANDR Administration Throat Lozenges 1 adiel 09/10/20 00:46 09/10/20 02:48 Cepastat Lozenges 1 Adiel PO 1 adiel Q2H PRN Administration Sore Throat - Exam General Appearance: awake alert Eye: anicteric sclera ENT: moist mucosa Neck: supple Heart: RRR Respiratory: CTAB Gastrointestinal: soft Skin: no rashes Psychiatric: normal affect Hosp A/P - Plan -Assessment (1) Subarachnoid hemorrhage Code(s): I60.9 - NONTRAUMATIC SUBARACHNOID HEMORRHAGE, UNSPECIFIED Status: Acute Plan: Managed conservatively, clinically improving (2) Left hemiplegia Code(s): G81.94 - HEMIPLEGIA, UNSPECIFIED AFFECTING LEFT NONDOMINANT SIDE Status: Acute Plan: Mobilize patient (3) Hypertension Code(s): I10 - ESSENTIAL (PRIMARY) HYPERTENSION Status: Chronic Qualifiers: Hypertension type: essential hypertension Qualified Code(s): I10 - Essential (primary) hypertension (4) Sinus pause Code(s): I45.5 - OTHER SPECIFIED HEART BLOCK Status: Resolved - Plan Continue rehab PT/OT. Check left shoulder x-rays. Discharge planning in progress.
[2020-09-17] MEDS: Nicotine 14 MG PATCH TOP SCH (13:43)
[2020-09-18] MEDS: niMODipine 30 MG CAP PO SCH ×6 (00:39→21:53)
[2020-09-18] MEDS: Acetaminophen 325 MG TAB PO PRN ×3 (01:13→21:53)
[2020-09-18 04:56] VITALS: BMI 26.3
[2020-09-18 05:50] LABS: Anion Gap 14 mmol/L (10-20); BUN (Urea Nitrogen) 17 mg/dL (8.4-25.7); Calc. Creatinine Clearance 106 mL/min (70-130); Calcium 9.1 mg/dL (7.8-10.44); Carbon Dioxide 22 mmol/L (22-29); Chloride 102 mmol/L (98-107); Estimated GFR-MDRD Greater than 90; Glucose 106 mg/dL (70-105); Potassium 3.5 mmol/L (3.5-5.1); Sodium 134 mmol/L (136-145)
[2020-09-18] MEDS ORDERED: Potassium Chloride 20 MEQ TAB PO SCH (06:30)
[2020-09-18] MEDS: Budesonide 0.5 MG/2 ML NEB NEB SCH ×2 (08:40→18:29)
[2020-09-18] MEDS: hydrALAZINE 25 MG TAB PO SCH ×3 (09:11→21:54)
[2020-09-18] MEDS: cloNIDine 0.2 MG TAB PO SCH ×2 (09:12→21:53)
[2020-09-18] MEDS: Amlodipine 5 MG TAB PO SCH ×2 (09:12→21:53)
[2020-09-18] MEDS: Nicotine 14 MG PATCH TOP SCH (14:52)
--- NOTE | 2020-09-18 16:04 | PDOC.HOSPP ---
- Subjective Encounter Date: 09/18/20 Encounter Time: 07:00 Subjective: Patient seen for follow-up regarding intracranial bleed. He denies chest pain, shortness of breath, fevers or chills. He denies nausea or vomiting. - Objective Vital Signs & Weight: Vital Signs (12 hours) Temp Pulse Pulse Pulse Resp BP BP 09/18/20 15:46 98.5 F 97 18 09/18/20 12:55 09/18/20 12:00 98.3 F 85 18 09/18/20 09:54 98 89 140/69 09/18/20 09:12 88 160/78 H 09/18/20 09:11 88 160/78 H 09/18/20 08:40 87 18 09/18/20 07:36 98.6 F 85 18 BP BP Pulse Ox 09/18/20 15:46 120/50 L 97 09/18/20 12:55 143/68 H 09/18/20 12:00 158/69 H 99 09/18/20 09:54 151/69 H 09/18/20 09:12 09/18/20 09:11 09/18/20 08:40 99 09/18/20 07:36 191/75 H 96 Weight Admit Weight 199 lb Weight 178 lb 3.2 oz Most Recent Monitor Data Heart Rate from ECG 67 NIBP 112/59 NIBP BP-Mean 76 Respiration from ECG 17 SpO2 95 I&O: 09/17/20 09/18/20 09/19/20 06:59 06:59 06:59 Intake Total 1110 360 Output Total 100 Balance 1010 360 Result Diagrams: 09/05/20 03:22 09/18/20 04:46 Additional Labs: Labs and MAR reviewed by me EKG Reviewed by me: Yes (Normal sinus rhythm on teletypesetter monitor.) Hospitalist ROS - Review of Systems Cardiovascular: denies: chest pain, palpitations, orthopnea, paroxysmal noc. dyspnea, edema, light headedness Gastrointestinal: denies: nausea, vomiting, abdominal pain, diarrhea, constipation, melena, hematochezia Neurological: reports: weakness. denies: numbness, incoordination, change in speech, confusion, seizures - Medication Medications: Active Medications Generic Name Dose Route Start Last Admin Trade Name Freq PRN Reason Stop Dose Admin Acetaminophen 650 mg 09/03/20 15:36 09/18/20 09:09 Acetaminophen 325 Mg Tab PO 650 mg Q6H PRN Administration Fever > 101 Albuterol/Ipratropium 3 ml 09/03/20 18:30 09/18/20 08:44 Ipratropium/Albuterol Sulfate 3 Ml Neb NEB 3 ml BID-RT ALEXANDR Administration Amlodipine Besylate 5 mg 09/04/20 09:00 09/18/20 09:12 Amlodipine 5 Mg Tab PO 5 mg BID ALEXANDR Administration Budesonide 0.5 mg 09/03/20 18:30 09/18/20 08:40 Budesonide 0.5 Mg/2 Ml Neb NEB 0.5 mg BID-RT ALEXANDR Administration Clonidine 0.2 mg 09/08/20 09:00 09/18/20 09:12 Clonidine 0.2 Mg Tab PO 0.2 mg BID ALEXANDR Administration Diphenhydramine HCl 50 mg 08/31/20 09:57 09/13/20 20:43 Diphenhydramine 50 Mg/Ml Vial IVP 50 mg Q6H PRN Administration Itching or Insomnia Hydralazine HCl 100 mg 09/11/20 09:00 09/18/20 09:11 Hydralazine 25 Mg Tab PO 100 mg TID ALEXANDR Administration Nicardipine HCl 50 mg/ Sodium 250 mls @ 0 mls/hr 09/02/20 00:15 09/08/20 09:14 Chloride IVPB 250 mls INF ALEXANDR Administration Protocol Titrate Nicotine 14 mg 09/10/20 13:00 09/18/20 14:52 Nicotine 14 Mg Patch TOP 14 mg Q24HR ALEXANDR Administration Nimodipine 60 mg 08/31/20 13:00 09/18/20 14:52 Nimodipine 30 Mg Cap PO 60 mg Q4HR ALEXANDR Administration Nitroglycerin 0.5 inch 09/05/20 11:18 09/17/20 04:05 Nitroglycerin 2% Ointment 1 Inch/1 Gm Packet TOP 0.5 inch Q8H PRN Administration sbp >140 Pantoprazole Sodium 40 mg 09/09/20 09:00 09/18/20 09:10 Pantoprazole 40 Mg Tab PO 40 mg DAILY ALEXANDR Administration Throat Lozenges 1 adiel 09/10/20 00:46 09/10/20 02:48 Cepastat Lozenges 1 Adiel PO 1 adiel Q2H PRN Administration Sore Throat - Exam General Appearance: awake alert Eye: anicteric sclera ENT: moist mucosa Neck: supple Heart: RRR Respiratory: CTAB Gastrointestinal: soft, non-tender Skin: no rashes Psychiatric: normal affect Hosp A/P - Plan -Assessment (1) Subarachnoid hemorrhage Code(s): I60.9 - NONTRAUMATIC SUBARACHNOID HEMORRHAGE, UNSPECIFIED Status: Acute Plan: Managed conservatively, clinically improving (2) Left hemiplegia Code(s): G81.94 - HEMIPLEGIA, UNSPECIFIED AFFECTING LEFT NONDOMINANT SIDE Status: Acute Plan: Mobilize patient (3) Hypertension Code(s): I10 - ESSENTIAL (PRIMARY) HYPERTENSION Status: Chronic Qualifiers: Hypertension type: essential hypertension Qualified Code(s): I10 - Essential (primary) hypertension (4) Sinus pause Code(s): I45.5 - OTHER SPECIFIED HEART BLOCK Status: Resolved - Plan 60-year-old gentleman admitted for subarachnoid bleed by neurosurgery service. Managed conservatively. 2 CT angiograms were suggestive of brain aneurysm but digital subtraction angiogram did not show any evidence of aneurysm. Patient is participating in rehab activities. Case management attempting to place patient but due to funding reasons patient may go home next week with [facility].
[2020-09-19] MEDS: niMODipine 30 MG CAP PO SCH ×6 (05:06→21:36)
[2020-09-19 05:21] LABS: Anion Gap 13 mmol/L (10-20); BUN (Urea Nitrogen) 18 mg/dL (8.4-25.7); Calc. Creatinine Clearance 102 mL/min (70-130); Calcium 9.4 mg/dL (7.8-10.44); Carbon Dioxide 22 mmol/L (22-29); Chloride 102 mmol/L (98-107); Estimated GFR-MDRD Greater than 90; Glucose 105 mg/dL (70-105); Potassium 4.2 mmol/L (3.5-5.1); Sodium 133 mmol/L (136-145)
[2020-09-19] MEDS: Acetaminophen 325 MG TAB PO PRN ×2 (06:06→14:09)
[2020-09-19] MEDS: Budesonide 0.5 MG/2 ML NEB NEB SCH ×2 (06:47→18:49)
[2020-09-19] MEDS: hydrALAZINE 25 MG TAB PO SCH ×3 (07:39→21:36)
[2020-09-19] MEDS: Amlodipine 5 MG TAB PO SCH ×2 (07:39→21:36)
[2020-09-19] MEDS: cloNIDine 0.2 MG TAB PO SCH ×2 (07:39→21:36)
[2020-09-19] MEDS: Nicotine 14 MG PATCH TOP SCH (14:08)
--- NOTE | 2020-09-19 18:36 | PDOC.HOSPP ---
- Subjective Encounter Date: 09/19/20 Encounter Time: 16:00 Subjective: The patient has no complaints. No palpitations or chest pain. He states he never had weakness in his extremities, just pain in left arm which has resolved He states he plans to go home on Monday if there is no rehab bed available. Per case management, they are looking into SNF - Objective Vital Signs & Weight: Vital Signs (12 hours) Temp Pulse Resp BP BP Pulse Ox 09/19/20 16:21 98.1 F 89 16 151/76 H 98 09/19/20 14:09 88 09/19/20 11:11 98.5 F 88 16 147/61 H 99 09/19/20 07:50 97 09/19/20 07:43 98.5 F 86 20 164/67 H 97 09/19/20 07:39 76 165/72 H 09/19/20 06:47 76 12 Weight Admit Weight 199 lb Weight 178 lb 3.2 oz Most Recent Monitor Data Heart Rate from ECG 67 NIBP 112/59 NIBP BP-Mean 76 Respiration from ECG 17 SpO2 95 I&O: 09/18/20 09/19/20 09/20/20 06:59 06:59 06:59 Intake Total 480 1137 Output Total 175 200 Balance 305 937 Result Diagrams: 09/05/20 03:22 09/19/20 04:32 Hospitalist ROS - Review of Systems Constitutional: denies: fever, chills - Medication Medications: Active Medications Generic Name Dose Route Start Last Admin Trade Name Freq PRN Reason Stop Dose Admin Acetaminophen 650 mg 09/03/20 15:36 09/19/20 14:09 Acetaminophen 325 Mg Tab PO 650 mg Q6H PRN Administration Fever > 101 Albuterol/Ipratropium 3 ml 09/03/20 18:30 09/19/20 06:47 Ipratropium/Albuterol Sulfate 3 Ml Neb NEB 3 ml BID-RT ALEXANDR Administration Amlodipine Besylate 5 mg 09/04/20 09:00 09/19/20 07:39 Amlodipine 5 Mg Tab PO 5 mg BID ALEXANDR Administration Budesonide 0.5 mg 09/03/20 18:30 09/19/20 06:47 Budesonide 0.5 Mg/2 Ml Neb NEB 0.5 mg BID-RT ALEXANDR Administration Clonidine 0.2 mg 09/08/20 09:00 09/19/20 07:39 Clonidine 0.2 Mg Tab PO 0.2 mg BID ALEXANDR Administration Diphenhydramine HCl 50 mg 08/31/20 09:57 09/13/20 20:43 Diphenhydramine 50 Mg/Ml Vial IVP 50 mg Q6H PRN Administration Itching or Insomnia Hydralazine HCl 100 mg 09/11/20 09:00 09/19/20 14:09 Hydralazine 25 Mg Tab PO 100 mg TID ALEXANDR Administration Nicardipine HCl 50 mg/ Sodium 250 mls @ 0 mls/hr 09/02/20 00:15 09/08/20 09:14 Chloride IVPB 250 mls INF ALEXANDR Administration Protocol Titrate Nicotine 14 mg 09/10/20 13:00 09/19/20 14:08 Nicotine 14 Mg Patch TOP 14 mg Q24HR ALEXANDR Administration Nimodipine 60 mg 08/31/20 13:00 09/19/20 16:24 Nimodipine 30 Mg Cap PO 60 mg Q4HR ALEXANDR Administration Nitroglycerin 0.5 inch 09/05/20 11:18 09/17/20 04:05 Nitroglycerin 2% Ointment 1 Inch/1 Gm Packet TOP 0.5 inch Q8H PRN Administration sbp >140 Pantoprazole Sodium 40 mg 09/09/20 09:00 09/19/20 07:40 Pantoprazole 40 Mg Tab PO 40 mg DAILY ALEXANDR Administration Throat Lozenges 1 adiel 09/10/20 00:46 09/10/20 02:48 Cepastat Lozenges 1 Adiel PO 1 adiel Q2H PRN Administration Sore Throat - Exam General Appearance: NAD, awake alert Eye: PERRL, anicteric sclera ENT: normocephalic atraumatic, no oropharyngeal lesions Neck: no JVD Heart: RRR, no murmur, no gallops, no rubs Respiratory: CTAB, no wheezes, no rales, no ronchi Gastrointestinal: soft, non-tender, non-distended, normal bowel sounds Extremities: no cyanosis, no clubbing, no edema Skin: normal turgor, no lesions, no rashes Neurological: cranial nerve grossly intact, normal sensation to touch, no focal deficits, no new deficit Musculoskeletal - other findings: left arm weakness mild. Strength decreased left arm Psychiatric: normal affect, normal behavior, A&O x 3, oriented to person Hosp A/P (1) Acute CVA (cerebrovascular accident) Code(s): I63.9 - CEREBRAL INFARCTION, UNSPECIFIED Status: Acute (2) Left hemiplegia Code(s): G81.94 - HEMIPLEGIA, UNSPECIFIED AFFECTING LEFT NONDOMINANT SIDE Status: Acute (3) Subarachnoid hemorrhage Code(s): I60.9 - NONTRAUMATIC SUBARACHNOID HEMORRHAGE, UNSPECIFIED Status: Acute (4) Leukocytosis Code(s): D72.829 - ELEVATED WHITE BLOOD CELL COUNT, UNSPECIFIED Status: Acute (5) Anemia Code(s): D64.9 - ANEMIA, UNSPECIFIED Status: Acute - Plan CT brain 09/11: continued decrease in subarachonid hemorrhage Left shoulder X ray: no fracture CTA head: middle cerebral aneurysm, tiny aneurysm at right carotid terminus CTA neck: unremarkable 60-year-old gentleman admitted for subarachnoid bleed by neurosurgery service. Managed conservatively. 2 CT angiograms were suggestive of brain aneurysm but digital subtraction angiogram did not show any evidence of aneurysm. Patient is participating in rehab activities. Case management attempting to place patient but due to funding reasons patient may go home next week with [facility]. #Subarachnoid hemorrhage #Left arm weakness - stable, still has some left arm weakness, but ambulating fine. [place] Xray unremarkable - awaiting SNF placement Macrocytic anemia - Hb 11, check B12/folate in am. TSH normal Leukocytosis - WBC 15.6 09/05. Will repeat CBC in am Dispo: pending placement
[2020-09-20] MEDS: niMODipine 30 MG CAP PO SCH ×6 (01:35→21:16)
[2020-09-20] MEDS: Acetaminophen 325 MG TAB PO PRN ×2 (04:36→13:49)
[2020-09-20 04:54] LABS: Mean Corpuscular HGB CONC 32.6 g/dL (32.0-36.0); Mean Corpuscular Hemoglobin 31.9 pg (27.0-31.0); Mean Platelet Volume 6.8 fL (7.4-10.4); Platelet Count 429 thou/uL (130-400); RBC Distribution Width 12.3 % (11.5-14.5); Red Blood Cell (RBC) Count 3.12 mill/uL (4.70-6.10); White Blood Cell (WBC) Count 10.8 thou/uL (4.8-10.8)
[2020-09-20 05:15] LABS: Anion Gap 15 mmol/L (10-20); BUN (Urea Nitrogen) 21 mg/dL (8.4-25.7); Calc. Creatinine Clearance 100 mL/min (70-130); Calcium 9.7 mg/dL (7.8-10.44); Carbon Dioxide 22 mmol/L (22-29); Chloride 101 mmol/L (98-107); Estimated GFR-MDRD Greater than 90; Glucose 111 mg/dL (70-105); Potassium 4.6 mmol/L (3.5-5.1); Sodium 133 mmol/L (136-145)
[2020-09-20] MEDS: Budesonide 0.5 MG/2 ML NEB NEB SCH ×2 (06:54→18:54)
[2020-09-20] MEDS: Amlodipine 5 MG TAB PO SCH ×2 (08:47→21:16)
[2020-09-20] MEDS: cloNIDine 0.2 MG TAB PO SCH ×2 (08:47→21:16)
[2020-09-20] MEDS: hydrALAZINE 25 MG TAB PO SCH ×3 (08:48→21:16)
[2020-09-20] MEDS: Folic Acid 1 MG TAB PO SCH (09:55)
[2020-09-20] MEDS: Cepastat Lozenges 1 LOZ PO PRN ×2 (09:56→17:24)
[2020-09-20] MEDS: Nicotine 14 MG PATCH TOP SCH (12:03)
--- NOTE | 2020-09-20 16:03 | PDOC.HOSPP ---
- Subjective Encounter Date: 09/20/20 Encounter Time: 11:00 Subjective: The patient has no new complaints. He is ready to go home and states he will sign himself out tomorrow. Still has some left arm weakness - Objective Vital Signs & Weight: Vital Signs (12 hours) Temp Pulse Pulse Pulse Resp BP BP 09/20/20 11:38 98.2 F 83 14 09/20/20 10:38 83 84 153/74 H 117/71 09/20/20 08:48 76 09/20/20 08:47 76 09/20/20 07:34 98.2 F 76 16 09/20/20 06:54 74 16 09/20/20 04:16 98.3 F 76 15 BP BP Pulse Ox 09/20/20 11:38 149/77 H 97 09/20/20 10:38 09/20/20 08:48 09/20/20 08:47 09/20/20 07:34 152/69 H 97 09/20/20 06:54 09/20/20 04:16 153/61 H 97 Weight Admit Weight 199 lb Weight 176 lb 1.6 oz Most Recent Monitor Data Heart Rate from ECG 67 NIBP 112/59 NIBP BP-Mean 76 Respiration from ECG 17 SpO2 95 I&O: 09/19/20 09/20/20 09/21/20 06:59 06:59 06:59 Intake Total 480 1137 600 Output Total 175 200 Balance 305 937 600 Result Diagrams: 09/20/20 04:32 09/20/20 04:32 Hospitalist ROS - Review of Systems Constitutional: denies: fever, chills - Medication Medications: Active Medications Generic Name Dose Route Start Last Admin Trade Name Freq PRN Reason Stop Dose Admin Acetaminophen 650 mg 09/03/20 15:36 09/20/20 13:49 Acetaminophen 325 Mg Tab PO 650 mg Q6H PRN Administration Fever > 101 Albuterol/Ipratropium 3 ml 09/03/20 18:30 09/20/20 06:54 Ipratropium/Albuterol Sulfate 3 Ml Neb NEB 3 ml BID-RT ALEXANDR Administration Amlodipine Besylate 5 mg 09/04/20 09:00 09/20/20 08:47 Amlodipine 5 Mg Tab PO 5 mg BID ALEXANDR Administration Budesonide 0.5 mg 09/03/20 18:30 09/20/20 06:54 Budesonide 0.5 Mg/2 Ml Neb NEB 0.5 mg BID-RT ALEXANDR Administration Clonidine 0.2 mg 09/08/20 09:00 09/20/20 08:47 Clonidine 0.2 Mg Tab PO 0.2 mg BID ALEXANDR Administration Diphenhydramine HCl 50 mg 08/31/20 09:57 09/13/20 20:43 Diphenhydramine 50 Mg/Ml Vial IVP 50 mg Q6H PRN Administration Itching or Insomnia Folic Acid 1 mg 09/20/20 09:00 09/20/20 09:55 Folic Acid 1 Mg Tab PO 1 mg DAILY ALEXANDR Administration Hydralazine HCl 100 mg 09/11/20 09:00 09/20/20 08:48 Hydralazine 25 Mg Tab PO 100 mg TID ALEXANDR Administration Nicardipine HCl 50 mg/ Sodium 250 mls @ 0 mls/hr 09/02/20 00:15 09/08/20 09:14 Chloride IVPB 250 mls INF ALEXANDR Administration Protocol Titrate Nicotine 14 mg 09/10/20 13:00 09/20/20 12:03 Nicotine 14 Mg Patch TOP 14 mg Q24HR ALEXANDR Administration Nimodipine 60 mg 08/31/20 13:00 09/20/20 12:02 Nimodipine 30 Mg Cap PO 60 mg Q4HR ALEXANDR Administration Nitroglycerin 0.5 inch 09/05/20 11:18 09/17/20 04:05 Nitroglycerin 2% Ointment 1 Inch/1 Gm Packet TOP 0.5 inch Q8H PRN Administration sbp >140 Pantoprazole Sodium 40 mg 09/09/20 09:00 09/20/20 08:48 Pantoprazole 40 Mg Tab PO 40 mg DAILY ALEXANDR Administration Throat Lozenges 1 adiel 09/10/20 00:46 09/20/20 09:56 Cepastat Lozenges 1 Adiel PO 1 adiel Q2H PRN Administration Sore Throat - Exam General Appearance: NAD, awake alert Eye: anicteric sclera ENT: normocephalic atraumatic, no oropharyngeal lesions Neck: no JVD Heart: RRR Respiratory: no rales Gastrointestinal: soft, non-distended Extremities: no cyanosis, no edema Skin: normal turgor, no rashes Neurological - other findings: left arm weakness evident 4/5. Musculoskeletal: normal strength (normal strength in lower extremities and RUE) Psychiatric: normal affect, normal behavior, A&O x 3 Hosp A/P (1) Acute CVA (cerebrovascular accident) Code(s): I63.9 - CEREBRAL INFARCTION, UNSPECIFIED Status: Acute (2) Left hemiplegia Code(s): G81.94 - HEMIPLEGIA, UNSPECIFIED AFFECTING LEFT NONDOMINANT SIDE Status: Acute (3) Subarachnoid hemorrhage Code(s): I60.9 - NONTRAUMATIC SUBARACHNOID HEMORRHAGE, UNSPECIFIED Status: Acute (4) Leukocytosis Code(s): D72.829 - ELEVATED WHITE BLOOD CELL COUNT, UNSPECIFIED Status: Acute (5) Anemia Code(s): D64.9 - ANEMIA, UNSPECIFIED Status: Acute - Plan CT brain 09/11: continued decrease in subarachonid hemorrhage Left shoulder X ray: no fracture CTA head: middle cerebral aneurysm, tiny aneurysm at right carotid terminus CTA neck: unremarkable 60-year-old gentleman admitted for subarachnoid bleed by neurosurgery service. Managed conservatively. 2 CT angiograms were suggestive of brain aneurysm but digital subtraction angiogram did not show any evidence of aneurysm. Patient is participating in rehab activities. Case management attempting to place patient but due to funding reasons patient may go home next week with [facility]. #Subarachnoid hemorrhage #Left arm weakness - stable, still has some left arm weakness, but ambulating fine. Shoulder Xray unremarkable - awaiting SNF placement Folate deficiency anemia - Hb 10, folate level low, started folate supplementation Leukocytosis - resolved Hyponatremia - sodium 133, stable, asymptomatic Dispo: pending placement
[2020-09-21] MEDS: niMODipine 30 MG CAP PO SCH ×6 (01:30→21:49)
[2020-09-21 06:45] LABS: Anion Gap 15 mmol/L (10-20); BUN (Urea Nitrogen) 22 mg/dL (8.4-25.7); Calc. Creatinine Clearance 89 mL/min (70-130); Calcium 9.7 mg/dL (7.8-10.44); Carbon Dioxide 22 mmol/L (22-29); Chloride 100 mmol/L (98-107); Estimated GFR-MDRD Greater than 90; Glucose 119 mg/dL (70-105); Potassium 4.6 mmol/L (3.5-5.1); Sodium 132 mmol/L (136-145)
[2020-09-21] MEDS: Budesonide 0.5 MG/2 ML NEB NEB SCH ×2 (06:54→18:49)
[2020-09-21] MEDS: hydrALAZINE 25 MG TAB PO SCH ×3 (08:47→21:49)
[2020-09-21] MEDS: Acetaminophen 325 MG TAB PO PRN ×3 (08:47→23:22)
[2020-09-21] MEDS: Amlodipine 5 MG TAB PO SCH (08:47)
[2020-09-21] MEDS: Folic Acid 1 MG TAB PO SCH (08:47)
[2020-09-21] MEDS: cloNIDine 0.2 MG TAB PO SCH ×2 (08:47→21:50)
[2020-09-21] MEDS: Nicotine 14 MG PATCH TOP SCH (13:22)
--- NOTE | 2020-09-21 15:45 | PDOC.HOSPP ---
- Subjective Encounter Date: 09/21/20 Encounter Time: 10:00 Subjective: Mr. Berg is a 60 yo M s/p stroke with residual left sided hemiplegia. Pt. denies any new issues. He is still awaiting placement. He reports that he is getting frustrated with the process but reports that he will wait until it works out. Reports feeling well overall. - Objective Vital Signs & Weight: Vital Signs (12 hours) Temp Pulse Resp BP Pulse Ox 09/21/20 12:15 98.3 F 83 19 139/79 98 09/21/20 08:47 82 09/21/20 08:08 98.6 F 82 17 169/80 H 96 09/21/20 06:54 63 18 100 Weight Admit Weight 199 lb Weight 176 lb 1.6 oz Most Recent Monitor Data Heart Rate from ECG 67 NIBP 112/59 NIBP BP-Mean 76 Respiration from ECG 17 SpO2 95 I&O: 09/20/20 09/21/20 09/22/20 06:59 06:59 06:59 Intake Total 1137 900 837 Output Total 200 925 Balance 937 -25 837 Result Diagrams: 09/20/20 04:32 09/21/20 06:16 Hospitalist ROS - Review of Systems Constitutional: denies: fever, chills Respiratory: denies: cough, shortness of breath Cardiovascular: denies: chest pain Gastrointestinal: denies: nausea, vomiting, abdominal pain, diarrhea, constipa tion Neurological: reports: weakness - Medication Medications: Active Medications Generic Name Dose Route Start Last Admin Trade Name Freq PRN Reason Stop Dose Admin Acetaminophen 650 mg 09/03/20 15:36 09/21/20 08:47 Acetaminophen 325 Mg Tab PO 650 mg Q6H PRN Administration Fever > 101 Albuterol/Ipratropium 3 ml 09/03/20 18:30 09/21/20 06:55 Ipratropium/Albuterol Sulfate 3 Ml Neb NEB 3 ml BID-RT ALEXANDR Administration Budesonide 0.5 mg 09/03/20 18:30 09/21/20 06:54 Budesonide 0.5 Mg/2 Ml Neb NEB 0.5 mg BID-RT ALEXANDR Administration Clonidine 0.2 mg 09/08/20 09:00 09/21/20 08:47 Clonidine 0.2 Mg Tab PO 0.2 mg BID ALEXANDR Administration Diphenhydramine HCl 50 mg 08/31/20 09:57 09/13/20 20:43 Diphenhydramine 50 Mg/Ml Vial IVP 50 mg Q6H PRN Administration Itching or Insomnia Folic Acid 1 mg 09/20/20 09:00 09/21/20 08:47 Folic Acid 1 Mg Tab PO 1 mg DAILY ALEXANDR Administration Hydralazine HCl 100 mg 09/11/20 09:00 09/21/20 08:47 Hydralazine 25 Mg Tab PO 100 mg TID ALEXANDR Administration Nicotine 14 mg 09/10/20 13:00 09/21/20 13:22 Nicotine 14 Mg Patch TOP 14 mg Q24HR ALEXANDR Administration Nimodipine 60 mg 08/31/20 13:00 09/21/20 13:22 Nimodipine 30 Mg Cap PO 60 mg Q4HR ALEXANDR Administration Nitroglycerin 0.5 inch 09/05/20 11:18 09/17/20 04:05 Nitroglycerin 2% Ointment 1 Inch/1 Gm Packet TOP 0.5 inch Q8H PRN Administration sbp >140 Pantoprazole Sodium 40 mg 09/09/20 09:00 09/21/20 08:47 Pantoprazole 40 Mg Tab PO 40 mg DAILY ALEXANDR Administration Throat Lozenges 1 adiel 09/10/20 00:46 09/20/20 17:24 Cepastat Lozenges 1 Adiel PO 1 adiel Q2H PRN Administration Sore Throat - Exam General Appearance: NAD, awake alert Heart: RRR, no murmur, no gallops, no rubs Respiratory: CTAB, no wheezes, no rales, no ronchi, normal chest expansion, no tachypnea Extremities: no edema Neurological: no new deficit (Unable to flex left arm/raise left elbow off chair. Brim Blocker strength 2+ bilaterally. Leg strength 2+ bilaterally. Ankle reflexes 2+ bilaterally. Biceps reflexes 1+ bilaterally.) Musculoskeletal: negative: normal strength (see neurological physical examination) Psychiatric: normal affect, normal behavior Hosp A/P - Plan CT brain 09/11: continued decrease in subarachonid hemorrhage Left shoulder X ray: no fracture CTA head: middle cerebral aneurysm, tiny aneurysm at right carotid terminus CTA neck: unremarkable 60-year-old gentleman admitted for subarachnoid bleed by neurosurgery service. Managed conservatively. 2 CT angiograms were suggestive of brain aneurysm but digital subtraction angiogram did not show any evidence of aneurysm. Patient is participating in rehab activities. Case management attempting to place patient but due to funding reasons patient may go home next week with [facility]. #Subarachnoid hemorrhage #Left arm weakness - stable, still has some left arm weakness, but ambulating fine. 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 Patient still has left arm weakness and cannot lift it off the chair. Case management spoke with his daughter extensively who is still interested in rehab. Unfortunately was denied by multiple places. If this does not work then there is plan to send the patient home with [facility] Exam: unchanged with persistent left arm weakness with difficulty lifting elbow off the chair. Reflexes diminished in upper extremities Plan: continue to work on finding placement, otherwise will consider home with [facility]
[2020-09-21] MEDS: Cepastat Lozenges 1 LOZ PO PRN (17:44)
[2020-09-22] MEDS: niMODipine 30 MG CAP PO SCH ×4 (02:08→12:14)
[2020-09-22] MEDS ORDERED: Lidocaine 5% Patch TD SCH (04:00)
[2020-09-22] MEDS: Acetaminophen 325 MG TAB PO PRN ×2 (04:45→11:25)
[2020-09-22 05:19] LABS: Anion Gap 17 mmol/L (10-20); BUN (Urea Nitrogen) 21 mg/dL (8.4-25.7); Calc. Creatinine Clearance 85 mL/min (70-130); Calcium 9.8 mg/dL (7.8-10.44); Carbon Dioxide 20 mmol/L (22-29); Chloride 101 mmol/L (98-107); Estimated GFR-MDRD Greater than 90; Glucose 130 mg/dL (70-105); Potassium 4.5 mmol/L (3.5-5.1); Sodium 133 mmol/L (136-145)
[2020-09-22] MEDS: Budesonide 0.5 MG/2 ML NEB NEB SCH (06:58)
[2020-09-22] MEDS: Folic Acid 1 MG TAB PO SCH (08:57)
[2020-09-22] MEDS: hydrALAZINE 25 MG TAB PO SCH (08:57)
[2020-09-22] MEDS: cloNIDine 0.2 MG TAB PO SCH (08:57)
[2020-09-22] MEDS ORDERED: Lisinopril/Hydrochlorothiazide 20 mg/12.5 mg Tablet PO SCH (09:00)
[2020-09-22] MEDS: Nicotine 14 MG PATCH TOP SCH (12:14)
[2020-09-22 15:53] VITALS: BP 126/75; TEMP 98.7
[2020-09-22] MEDS ORDERED: Lidocaine Patch Removal 1 EACH TOP SCH (18:00)
--- NOTE | 2020-09-22 19:07 | PDOC.DS.DS ---
Provider - Provider Date of Admission: 08/31/20 09:58 Date of Discharge: 09/22/20 Admitting Provider: Mauricio Hoffman DO Consultations:: Pulmonary (Dr. Manfred Meyers with pulmonary) Primary Care Physician: Unknown Course - Hospital Course Hospital Course: #Subarachnoid hemorrhage/Left Arm weakness: This is a 60-year-old man who initially presented with syncopal episode and was found unconscious. CT scan of the head showed diffuse subarachnoid hemorrhage. CTA of the head showed an aneurysm in the right MCA trifurcation and an aneurysm involving the right carotid terminus. This was managed conservatively by neurosurgery. He was initially admitted to the ICU. His blood pressure in the ER was as high as 224/135. He was started on a nicardipine drip for blood pressure control. His blood pressure was well controlled during his hospitalization. He had serial CT scans which showed decreasing size of his hemorrhage. He had a digital subtraction angiogram which showed no evidence of an aneurysm. He did require NG tube feedings initially as well due to an ileus but was eventually transitioned over to an oral diet. Continues to have left upper extremity weakness. He was seen by physical therapy, Occupational Therapy and speech therapy and will be discharged to rehab. He will need to follow-up with Dr. Sabillon in 3 to 4 weeks Hypertensive Emergency: He was initially on a nicardipine drip and then transition to oral nimodipine 60 mg p.o. every 4 hours and amlodipine 5 mg twice daily and hydralazine 100 mg p.o. 3 times daily. His blood pressure was well controlled during from 120-130. His amlodipine was discontinued 09/22 and he was restarted on his home lisinoprilhydrochlorothiazide. He will be discharged with hydralazine, lisinopril- HCTZ and nimodipine on discharge. Folate deficiency anemia: - Hb 10, folate level low, started folate supplementation Leukocytosis: Patient had a white count of 15.5 on 09/01. Patient denied cough, urinary symptoms or shortness of breath. His chest x-ray showed no ev idence of pneumonia. His white count resolved on 09/20-. Tobacco abuse: continue nicotine patch Pertinent Studies: CT brain 08/31: acute hemorrhage mostly on the right side. Evidence of ruptured aneurysm probable right middle cerebral artery branch aneurysm CTA brain 08/31: 23 x 1 x 1 mm aneurysm at the right middle cerebral artery bifurcation. 22 x 1 x 1 mm aneurysm of the right carotid terminus Chest x ray 08/31: no acute disease CT brain 08/31: no change in hemorrhage Chest X ray 09/03: hazy opacity in mid to right lower lobe may reflect mild layered pleural effusion. Chest x ray 09/05: no consolidation. No effusion CT angiography head 09/07: decreasing subarachnoid hemorrhage with in the right cerebral convexity. No significant change aneurysms involving the right MCA trifurcation measuring 2.5 mm and a 2 mm aneurysm involving the right carotid terminus CTA neck 09/07: unremarkable CT brain 09/11: continued decrease in subarachonid hemorrhage Left shoulder X ray: no fracture CTA head: middle cerebral aneurysm, tiny aneurysm at right carotid terminus CTA neck: unremarkable Procedures: Digital subtraction angiogram - Labs Lab Results: 09/20/20 04:32 09/22/20 04:35 Abnormal Lab Results - Last 48 hrs 09/21/20 06:16: Sodium 132 L 09/22/20 04:35: Sodium 133 L, Carbon Dioxide 20 L Microbiology - Entire Visit 09/09/20 05:26 Stool C. difficile GDH Antigen & Toxins - Final - Physical Exam Vitals: Vital Signs (12 hours) Temp Pulse Resp BP BP Pulse Ox 09/22/20 15:32 98.7 F 77 16 126/75 99 09/22/20 11:27 99 F 79 16 129/74 99 09/22/20 08:57 75 09/22/20 07:37 98.8 F 75 16 142/72 H 99 Weight Admit Weight 199 lb Weight 166 lb 9.6 oz Most Recent Monitor Data Heart Rate from ECG 67 NIBP 112/59 NIBP BP-Mean 76 Respiration from ECG 17 SpO2 95 Physical Exam: The patient was seen and examined on the day of discharge. Plan - Discharge Medications Prescriptions: Nimodipine [Nimotop] 60 mg PO Q4HR #360 cap Nicotine [Nicoderm CQ] 14 mg TOP Q24HR #1 patch Folic Acid [Folvite] 1 mg PO DAILY #30 tab hydrALAZINE HCl 100 mg PO TID #90 tablet Home Medications: Medication Instructions Recorded Confirmed Type Lisinopril/Hydrochlorothiazide 1 tab PO DAILY #0 tab 02/14/16 08/31/20 Rx [Prinizide] Folic Acid [Folvite] 1 mg PO DAILY #30 tab 09/22/20 Rx Nicotine [Nicoderm CQ] 14 mg TOP Q24HR #1 patch 09/22/20 Rx Nimodipine [Nimotop] 60 mg PO Q4HR #360 cap 09/22/20 Rx hydrALAZINE HCl 100 mg PO TID #90 tablet 09/22/20 Rx Allergies: No Known Drug Allergies Allergy (Verified 02/13/16 19:45) PER ER ORDER - Discharge Instructions Discharge Instructions:: You presented with a subarachnoid hemorrhage. You were started on medicine for high blood pressure. Please have this rechecked in a week with your primary care doctor. You were anemic and found to be deficient in folic acid. Please take folic acid supplements and consider having your levels rechecked. Follow up with Dr. Jimenez Sabillon in a few weeks. If you have severe headache, worsening weakness on one side of your body, difficulty speaking, drooling, lethargy, please come back to the hospital. Activity:: Activity as Tolerated Nourishment:: Heart Healthy Diet Therapies:: Occupational Therapy, Physical Therapy - Follow up Plan Referrals: Unknown,Unknown [Primary Care Provider] - Disposition: SENIOR CARE/ASSISTED LIVING Quality - Care Measures CORE MEASURES:: Stroke/TIA - Stroke/TIA Did you prescribe antithrombotic therapy?: No Specify reason for no DC antithrombotic therapy: Treatment not indicated Did you prescribe anticoagulant for A Fib/Flutter?: No Specify reason for no DC anticoagulant: Treatment not indicated Did you prescribe a statin medication?: No Specify reason for no DC statin medication: Treatment not indicated
[2020-09-23] MEDS ORDERED: Lidocaine 5% Patch TD SCH (09:00)
[2020-09-23] MEDS ORDERED: Lidocaine Patch Removal 1 EACH TOP SCH (21:00)
== END 2020-09-22 16:11 | DRG 64 ==
LOC: ERS 08:56 → CCU 09:58 → 2SE 09-08 15:04
PROVIDERS: ADMIT Family Medicine; ATTEND Internal Medicine
PROC: 5A1955Z Respiratory Ventilation, Greater than 96 Consecutive Hours (ICD-10-PCS; principal; 2020-08-31)
PROC: 0T9B70Z Drainage of Bladder with Drainage Device, Via Natural or Artificial Opening (ICD-10-PCS; 2020-08-31)
PROC: B31R1ZZ Fluoroscopy of Intracranial Arteries using Low Osmolar Contrast (ICD-10-PCS; 2020-09-01)
PROC: 3E02340 Introduction of Influenza Vaccine into Muscle, Percutaneous Approach (ICD-10-PCS; 2020-09-09)
DX: I60.11 Nontraumatic subarachnoid hemorrhage from right middle cerebral artery (principal); J96.01 Acute respiratory failure with hypoxia; I16.1 Hypertensive emergency; G81.94 Hemiplegia, unspecified affecting left nondominant side; K56.7 Ileus, unspecified; R17 Unspecified jaundice; N17.9 Acute kidney failure, unspecified; E87.2 Acidosis; E87.1 Hypo-osmolality and hyponatremia; R00.1 Bradycardia, unspecified; I45.5 Other specified heart block; D72.829 Elevated white blood cell count, unspecified; D52.9 Folate deficiency anemia, unspecified; F17.210 Nicotine dependence, cigarettes, uncomplicated; Z20.828 Contact with and (suspected) exposure to other viral communicable diseases; I10 Essential (primary) hypertension; Z78.1 Physical restraint status; Z79.899 Other long term (current) drug therapy; Z23 Encounter for immunization
CPT/HCPCS: 36216; 36415; 36416; 51702; 70450; 70496; 70498; 71045; 74018; 76942; 80048; 80053; 80076; 80306; 80307; 81003; 81015; 82550; 82607; 82746; 82805; 83605; 83735; 83880; 84300; 84443; 84484; 85025; 85027; 85610; 85730; 87324; 87449; 90471; 90662; 93005; 94002; 94003; 94640; 96361; 96365; 96367; 96375; 96376; 99292; C9113; G0008; J0282; J1100; J1200; J1644; J1940; J1953; J2001; J2060; J2270; J2704; J3010; J3475; J7050; J7620; J7626; Q9963; Q9967; U0002

== ENCOUNTER 2021-01-27 11:06 | Day surgery (SDC) | payer MEDICAID, SELFPAY ==
[2021-01-26 12:17] VITALS: BMI 25.8
[~2021-01-27 11:06] MED LIST: Iopamidol 370 76% 50 ML VIAL FS ONE
[2021-01-27] MEDS ORDERED: Heparin 10,000 UNITS/ 10 ML VIAL ONE (11:45)
== END 2021-01-27 16:00 | disposition home or self-care (01) ==
LOC: CCL 11:06
PROVIDERS: ATTEND Neurological Surgery
PROC: B3161ZZ Fluoroscopy of Right Internal Carotid Artery using Low Osmolar Contrast (ICD-10-PCS; principal; 2021-01-27)
DX: I60.8 Other nontraumatic subarachnoid hemorrhage (principal); Z79.899 Other long term (current) drug therapy
CPT/HCPCS: 36224; J1644; Q9967

== ENCOUNTER 2023-03-21 15:49 | Observation (INO) | payer MEDICARE ==
[2023-03-21] MEDS ORDERED: Ipratropium/Albuterol 3 ML NEB ONE (16:16)
[2023-03-21 16:44] LABS: #Eosinphils 0.1 thou/uL (0.0-0.7); #Lymphocytes 2.8 thou/uL (1.20-3.40); #Neutrophils 11.3 thou/uL (1.40-6.50); %Eosinophils 0.8 % (0.0-10.0); %Lymphocytes 18.4 % (21.0-51.0); %Monocytes 6.5 % (0.0-10.0); %Neutrophils 74.3 % (42.0-75.0); Hemoglobin 13.6 g/dL (14.0-18.0); Mean Corpuscular HGB CONC 32.5 g/dL (32.0-36.0); Mean Corpuscular Hemoglobin 32.1 pg (27.0-31.0); Mean Corpuscular Volume 98.7 fl (78.0-98.0); Mean Platelet Volume 8.4 fL (7.4-10.4); Platelet Count 211 10x3/uL (130-400); RBC Distribution Width 11.6 % (11.5-14.5); Red Blood Cell (RBC) Count 4.25 mill/uL (4.70-6.10); White Blood Cell (WBC) Count 15.3 10x3/uL (4.8-10.8)
[2023-03-21 17:04] LABS: ALT (SGPT) 11 U/L (8-55); AST (SGOT) 18 U/L (5-34); Albumin 4.4 g/dL (3.5-5.0); Alkaline Phosphatase 53 U/L (40-110); Anion Gap 18 mmol/L (10-20); BUN (Urea Nitrogen) 20 mg/dL (8.4-25.7); Bilirubin, Total 0.8 mg/dL (0.2-1.2); CK (CPK) 424 U/L (30-200); Calc. Creatinine Clearance 0 mL/min (70-130); Carbon Dioxide 16 mmol/L (22-29); Chloride 107 mmol/L (98-107); Estimated GFR 38; Glucose 176 mg/dL (70-105); Potassium 3.7 mmol/L (3.5-5.1); Protein, Total 7.4 g/dL (6.0-8.3); Sodium 137 mmol/L (136-145)
[2023-03-21] MEDS ORDERED: Ondansetron ODT 4 MG TAB PO PRN (18:07)
[2023-03-21] MEDS ORDERED: Acetaminophen 325 MG TAB PO PRN (18:07)
[2023-03-21] MEDS ORDERED: Ondansetron PF 4 MG/2 ML Vial IVP PRN (18:07)
[2023-03-21 20:03] LABS: Lactic Acid 3.3 mmol/L (0.5-2.2)
[2023-03-21 20:08] VITALS: BMI 37.0
[2023-03-21] MEDS ORDERED: Ipratropium/Albuterol 3 ML NEB NEB PRN (21:38)
[2023-03-21] MEDS: Lactated Ringer's 1,000 ML IV SCH (22:55)
[2023-03-22] MEDS: Lactated Ringer's 1,000 ML IV SCH ×2 (04:26→09:17)
[2023-03-22 05:09] LABS: #Lymphocytes 0.8 thou/uL (1.20-3.40); #Monocytes 0.5 thou/uL (0.11-0.59); #Neutrophils 11.6 thou/uL (1.40-6.50); %Basophils 0.1 % (0.0-1.0); %Eosinophils 0.1 % (0.0-10.0); %Lymphocytes 5.9 % (21.0-51.0); %Monocytes 3.7 % (0.0-10.0); %Neutrophils 90.2 % (42.0-75.0); Hemoglobin 11.8 g/dL (14.0-18.0); Mean Corpuscular Hemoglobin 32.8 pg (27.0-31.0); Mean Corpuscular Volume 96.5 fl (78.0-98.0); Platelet Count 277 10x3/uL (130-400); RBC Distribution Width 11.6 % (11.5-14.5); Red Blood Cell (RBC) Count 3.59 mill/uL (4.70-6.10); White Blood Cell (WBC) Count 12.9 10x3/uL (4.8-10.8)
[2023-03-22 05:27] LABS: Anion Gap 14 mmol/L (10-20); BUN (Urea Nitrogen) 19 mg/dL (8.4-25.7); Calc. Creatinine Clearance 70 mL/min (70-130); Carbon Dioxide 20 mmol/L (22-29); Chloride 106 mmol/L (98-107); Estimated GFR 51; Glucose 191 mg/dL (70-105); Potassium 4.4 mmol/L (3.5-5.1); Sodium 136 mmol/L (136-145)
[2023-03-22 08:04] VITALS: BP 106/57; TEMP 99.1
[2023-03-22 08:08] LABS: Hemoglobin A1c 4.9 % (4.0-6.0)
== END 2023-03-22 13:35 | disposition home or self-care (01) ==
LOC: ERS 15:49 → 2SW 18:49
PROVIDERS: ADMIT Student in an Organized Health Care Education/Training Program; ATTEND Student in an Organized Health Care Education/Training Program
DX: T78.2XXA Anaphylactic shock, unspecified, initial encounter (principal); T63.441A Toxic effect of venom of bees, accidental (unintentional), initial encounter; I12.9 Hypertensive chronic kidney disease with stage 1 through stage 4 chronic kidney disease, or unspecified chronic kidney disease; N18.2 Chronic kidney disease, stage 2 (mild); N17.9 Acute kidney failure, unspecified; E78.00 Pure hypercholesterolemia, unspecified; Z87.891 Personal history of nicotine dependence; Z79.899 Other long term (current) drug therapy
CPT/HCPCS: 80048; 80053; 82550; 83036; 83605; 83880; 84484; 85025 ×2; 93005; 94640; 94760; 96360; 96372; 99284; G0378 ×3; 36415; J1650; J7120; J7620

== ENCOUNTER 2024-09-22 20:35 | Inpatient (IN) | payer MEDICARE, MEDICAID ==
[2024-09-22] MEDS ORDERED: Pantoprazole 40 MG VIAL ONE (21:01)
[2024-09-22 21:21] LABS: #Basophils 0.08 10x3/uL (0.0-0.2); %Basophils 0.9 % (0.0-1.0); %Eosinophils 1.6 % (0.0-10.0); %Lymphocytes 28.2 % (21.0-51.0); %Monocytes 7.2 % (0.0-10.0); Hematocrit 40.5 % (42.0-52.0); Hemoglobin 13.4 g/dL (14.0-18.0); Mean Corpuscular HGB CONC 33.1 g/dL (32.0-36.0); Mean Corpuscular Volume 90.8 fL (78.0-98.0); Mean Platelet Volume 10.9 fL (7.4-10.4); Platelet Count 339 10x3/uL (130-400); RBC Distribution Width 12.2 % (11.5-14.5); Red Blood Cell (RBC) Count 4.46 mill/uL (4.70-6.10)
[2024-09-22] MEDS ORDERED: Milk Of Magnesia 30 ML UDCUP ONE (21:58)
[2024-09-22] MEDS ORDERED: Lidocaine Viscous Sol 2% 15 ml UD Cup ONE (21:58)
[2024-09-22 22:26] LABS: Chloride 87 mmol/L (98-107); Potassium 5.3 mmol/L (3.5-5.1); Sodium 122 mmol/L (136-145)
[2024-09-22 22:27] LABS: Calcium 9.7 mg/dL (7.8-10.44)
[2024-09-22 22:28] LABS: Globulin 3.5 g/dL (2.4-3.5); Protein, Total 7.5 g/dL (5.8-8.1)
[2024-09-22 22:29] LABS: Anion Gap 15 mmol/L (10-20); Carbon Dioxide 25 mmol/L (23-31)
[2024-09-22 22:30] LABS: Alkaline Phosphatase 126 U/L (40-110); Bilirubin, Total 0.8 mg/dL (0.2-1.2)
[2024-09-22 22:31] LABS: Calc. Creatinine Clearance 0 mL/min (70-130); Estimated GFR 28; Lipase 69 U/L (8-78)
[2024-09-22 22:32] LABS: BUN (Urea Nitrogen) 37 mg/dL (8.4-25.7)
[2024-09-22 22:33] LABS: ALT (SGPT) 18 U/L (8-55); AST (SGOT) 12 U/L (5-34)
[2024-09-23] MEDS ORDERED: Acetaminophen 650 MG Suppository PR PRN (01:22)
[2024-09-23] MEDS ORDERED: Ondansetron PF 4 MG/2 ML Vial IVP PRN (01:22)
[2024-09-23] MEDS ORDERED: Ondansetron ODT 4 MG TAB PO PRN (01:22)
[2024-09-23 03:29] VITALS: BMI 36.6
[2024-09-23] MEDS: Acetaminophen 325 MG TAB PO SCH (05:33)
[2024-09-23] MEDS: Pantoprazole DR 40 MG TAB PO SCH (08:04)
[2024-09-23 10:55] LABS: #Basophils 0.07 10x3/uL (0.0-0.2); %Basophils 0.8 % (0.0-1.0); %Eosinophils 1.8 % (0.0-10.0); %Lymphocytes 21.8 % (21.0-51.0); %Monocytes 7.2 % (0.0-10.0); %Neutrophils 67.4 % (42.0-75.0); Hematocrit 39.3 % (42.0-52.0); Hemoglobin 13.1 g/dL (14.0-18.0); Mean Corpuscular HGB CONC 33.3 g/dL (32.0-36.0); Mean Corpuscular Hemoglobin 29.8 pg (27.0-31.0); Mean Corpuscular Volume 89.5 fL (78.0-98.0); Mean Platelet Volume 11.7 fL (7.4-10.4); Platelet Count 123 10x3/uL (130-400); RBC Distribution Width 11.9 % (11.5-14.5); Red Blood Cell (RBC) Count 4.39 mill/uL (4.70-6.10)
[2024-09-23 11:46] LABS: ALT (SGPT) 17 U/L (8-55); AST (SGOT) 12 U/L (5-34); Albumin 3.8 g/dL (3.4-4.8); Alkaline Phosphatase 97 U/L (40-110); Anion Gap 16 mmol/L (10-20); BUN (Urea Nitrogen) 38 mg/dL (8.4-25.7); Bilirubin, Total 0.6 mg/dL (0.2-1.2); Calc. Creatinine Clearance 46 mL/min (70-130); Calcium 9.3 mg/dL (7.8-10.44); Carbon Dioxide 24 mmol/L (23-31); Chloride 91 mmol/L (98-107); Estimated GFR 32; Globulin 3.4 g/dL (2.4-3.5); Glucose 686 mg/dL (80-115); Potassium 4.9 mmol/L (3.5-5.1); Protein, Total 7.2 g/dL (5.8-8.1); Sodium 126 mmol/L (136-145)
[2024-09-23] MEDS ORDERED: Glucagon 1 MG/ML KIT IM PRN (17:38)
[2024-09-23] MEDS ORDERED: Dextrose 5% in Water 1,000 ML IV PRN (17:38)
[2024-09-23] MEDS ORDERED: Dextrose 50% Abboject 50 ML SYRINGE SLOW IVP PRN (17:38)
[2024-09-23] MEDS: Insulin Regular, Human 100 UNIT/ML 10 ML VIAL SC PRN (18:11)
[2024-09-23] MEDS: Sodium Chloride 0.9% 1,000 ML IV SCH ×3 (18:12→21:49)
[2024-09-23] MEDS: Sodium Chloride 0.9% 500 ML IVPB SCH (19:02)
[2024-09-23 19:09] LABS: Albumin 3.5 g/dL (3.4-4.8); Anion Gap 17 mmol/L (10-20); BUN (Urea Nitrogen) 38 mg/dL (8.4-25.7); BUN/Creatinine Ratio 14.84; Calc. Creatinine Clearance 41 mL/min (70-130); Carbon Dioxide 21 mmol/L (23-31); Chloride 92 mmol/L (98-107); Estimated GFR 28; Glucose 618 mg/dL (80-115); Phosphorus 4.2 mg/dL (2.3-4.7); Potassium 5.1 mmol/L (3.5-5.1); Sodium 125 mmol/L (136-145)
[2024-09-23 20:29] LABS: Bacteria/HPF None Seen HPF (None Seen); Bilirubin Negative (Negative); Blood, Urine Negative (Negative); CAUTI Indications for Culture Dysuria,urgency,freq; Clarity Clear (Clear); Glucose, Urine (Dipstick) Greater than 1000 mg/dL (Negative); Ketone, Urine 10 mg/dL (Negative); Leukocyte Negative Leu/uL (Negative); Nitrite Negative (Negative); Protein, Urine (Dipstick) Negative (Neg-Trace); RBC/HPF 0-3 HPF (0-3); Specific Gravity, Urine 1.026 (1.002-1.036); Squamous Epithelial None Seen HPF (0-3); Urobilinogen Normal mg/dL (Less than 2); WBC/HPF 0-3 HPF (0-3)
[2024-09-23 20:50] LABS: Urine Culture Reflex No No
[2024-09-23 20:55] LABS: Creatinine, Urine 56.76 mg/dL (63-166); Protein, Urine Random Quant Less than 10 mg/dL (1-14); Sodium, Urine 29 mmol/L (Not Available); Urea Nitrogen, Random Urine 398 mg/dl
[2024-09-24 04:57] LABS: ALT (SGPT) 14 U/L (8-55); AST (SGOT) 10 U/L (5-34); Albumin 3.1 g/dL (3.4-4.8); Alkaline Phosphatase 45 U/L (40-110); Anion Gap 13 mmol/L (10-20); BUN (Urea Nitrogen) 31 mg/dL (8.4-25.7); Bilirubin, Total 0.6 mg/dL (0.2-1.2); Calc. Creatinine Clearance 59 mL/min (70-130); Calcium 8.3 mg/dL (7.8-10.44); Carbon Dioxide 23 mmol/L (23-31); Chloride 104 mmol/L (98-107); Estimated GFR 43; Globulin 2.6 g/dL (2.4-3.5); Glucose 193 mg/dL (80-115); Potassium 3.6 mmol/L (3.5-5.1); Protein, Total 5.7 g/dL (5.8-8.1); Sodium 136 mmol/L (136-145)
[2024-09-24 05:02] LABS: Hemoglobin A1c Greater than 14.0 % (4.0-6.0)
[2024-09-24] MEDS: Insulin Glargine 30 UNITS/0.3 ML VIAL SC SCH (08:47)
[2024-09-25 04:47] LABS: #Basophils 0.06 10x3/uL (0.0-0.2); %Basophils 0.7 % (0.0-1.0); %Eosinophils 2.4 % (0.0-10.0); %Lymphocytes 29.4 % (21.0-51.0); %Monocytes 8.7 % (0.0-10.0); %Neutrophils 57.2 % (42.0-75.0); Hematocrit 35.1 % (42.0-52.0); Hemoglobin 11.1 g/dL (14.0-18.0); Mean Corpuscular HGB CONC 31.6 g/dL (32.0-36.0); Mean Corpuscular Volume 94.9 fL (78.0-98.0); Mean Platelet Volume 9.8 fL (7.4-10.4); Platelet Count 217 10x3/uL (130-400); RBC Distribution Width 11.9 % (11.5-14.5)
[2024-09-25 05:03] LABS: ALT (SGPT) 18 U/L (8-55); AST (SGOT) 15 U/L (5-34); Albumin 3.1 g/dL (3.4-4.8); Alkaline Phosphatase 40 U/L (40-110); Anion Gap 10 mmol/L (10-20); BUN (Urea Nitrogen) 14 mg/dL (8.4-25.7); Calc. Creatinine Clearance 84 mL/min (70-130); Calcium 8.3 mg/dL (7.8-10.44); Carbon Dioxide 23 mmol/L (23-31); Chloride 111 mmol/L (98-107); Estimated GFR 65; Globulin 2.7 g/dL (2.4-3.5); Glucose 146 mg/dL (80-115); Potassium 3.6 mmol/L (3.5-5.1); Protein, Total 5.8 g/dL (5.8-8.1); Sodium 140 mmol/L (136-145)
[2024-09-25 11:49] VITALS: BP 153/87; TEMP 99.2
[2024-09-25 12:20] LABS: Cardiac Risk 4.5 (Less than 4.5)
== END 2024-09-25 14:20 | disposition home or self-care (01) | DRG 638 ==
LOC: ERS 20:35 → OBS 09-23 00:19 → OBSVTOIN 09-23 17:19
PROVIDERS: ADMIT Student in an Organized Health Care Education/Training Program; ATTEND Student in an Organized Health Care Education/Training Program
DX: E11.65 Type 2 diabetes mellitus with hyperglycemia (principal); E87.1 Hypo-osmolality and hyponatremia; N17.9 Acute kidney failure, unspecified; E87.5 Hyperkalemia; I10 Essential (primary) hypertension; F32.A Depression, unspecified; F32.9 Major depressive disorder, single episode, unspecified; I25.10 Atherosclerotic heart disease of native coronary artery without angina pectoris; Z98.49 Cataract extraction status, unspecified eye
CPT/HCPCS: 36415; 36416; 70490; 76705; 76770; 80053; 80061; 81001; 82550; 82570; 83036; 83690; 83930; 83935; 84156; 84300; 84443; 84540; 85025; 96361; 96374; G0378; J1815; J2470